=== PATIENT | male | born 1995 | race Caucasian/White ===

== ENCOUNTER 2018-06-14 17:54 | Emergency (ER) | payer OTHER, SELFPAY ==
[2018-06-14 17:55] VITALS: BP 143/87; PULSE 91; RESP 16; TEMP 36.8; O2SAT 100; BMI 25.7
--- NOTE | 2018-06-14 20:23 | CT_ITS ---
STUDY: CT ABDOMEN AND PELVIS WITHOUT CONTRAST REASON FOR EXAM: Male, 23 years old. Kidney stones and back pain RADIATION DOSAGE (If Supplied By Facility): CTDIvol = ( 11.32 ) mGy, DLP = ( 616.74 ) mGycm TECHNIQUE: Transaxial images were obtained from the dome of the diaphragm to the symphysis pubis without oral contrast, and without intravenous contrast. Sagittal and coronal images were reconstructed. Individualized dose optimization techniques were used for this CT. COMPARISON: None. FINDINGS: There is interstitial thickening in both lower lobes. There is mild subsegmental atelectasis at left base.. The visualized portions of the heart are within normal limits. Normal liver. Contracted thick-walled gallbladder without calcified stones possibly physiologic. If concern for gallbladder disease ultrasound recommended. Normal spleen. Normal pancreas. Normal bilateral adrenal glands. Normal right kidney. Normal left kidney. Normal visualized stomach. Normal small intestine. Diffuse fecal retention is seen throughout the colon. The appendix is visualized and appears normal. Normal abdominal aorta. Normal inferior vena cava. Tiny subcentimeter retroperitoneal nodes of uncertain significance Small subcentimeter mesenteric nodes are observed Normal urinary bladder. Multiple enlarged inguinal nodes bilaterally the largest nodes measuring in the 1 to 1.5 cm size range. Normal osseous structures. CT/Abdomen/Pelvis without Cont IMPRESSION: Contracted thick-walled gallbladder without calcified stones possibly physiologic. If concern for gallbladder disease ultrasound recommended No evidence for renal obstruction or ureteral calculus Incidental finding of multiple small mesenteric retroperitoneal and mildly enlarged inguinal nodes of uncertain etiology or clinical significance. Clinical correlation is recommended Electronically Signed: Abdullahi Piedra MD at 21:31 EDT , Service support ,
--- NOTE | 2018-06-14 20:25 | ED.VISSUMM ---
- ER Visit Summary Date of Service: 06/14/18 Chief Complaint: Left flank pain History of Present Illness: The patient is a 23 M presents with 2 months of left-sided flank pain, acutely worse yesterday. Patient has had a dull ache in his left flank for 2 months. Yesterday he lifted a light box at work and had a very sharp severe pain in the left upper flank. Pain is worse with coughing, deep breathing, and sneezing. Patient has tried Tylenol without relief. He was seen by [facility] yesterday and noted to have blood in his urine. He is concerned he has a kidney stone. He has associated cold symptoms that are exacerbating his pain because of coughing and sniffling. He denies fever, abdominal pain, nausea or vomiting, dysuria, hematuria, or any associated problems. He is on Suboxone for maintenance therapy after history of opiate abuse. No history of kidney stones. Physical Examination: Vital signs: afebrile, hemodynamically stable, no hypoxia on room air General: well nourished, well developed, in no distress Skin: warm, dry, no rash, no pallor HEENT: normocephalic and atraumatic; PERRL, EOMI, moist mucous membranes Cardiovascular: regular rate and rhythm without murmurs, no peripheral edema, 2+ pulses all distal extremities Respiratory: No increased work of breathing, lungs are clear to auscultation bilaterally, no rales, rhonchi or wheezing Abdominal: Abdomen is soft, palpation of the abdomen causes referred pain to the left flank, with normoactive bowel sounds, no guarding or rebound, no masses, point tenderness along the upper left lateral/posterior thoracic back with no rash. MSK: Moves all extremities, no deformities, normal strength Neuro: Awake and alert, oriented ?4. No facial droop, sensation and motor function intact and symmetric Test Results: Abnormal Lab Results 06/14/18 06/14/18 06/14/18 20:55 20:55 20:55 WBC 7.5 RBC 4.82 Hgb 14.8 Hct 42.5 MCV 88.2 MCH 30.7 MCHC 34.8 RDW 12.4 RDW Differential 39.8 Plt Count 163 MPV 11.3 Immature Gran % (Auto) 0.300 Neut % (Auto) 60.8 Lymph % (Auto) 29.9 [place] % (Auto) 7.7 Eos % (Auto) 1.2 Baso % (Auto) 0.1 Absolute Neuts (auto) 4.6 Absolute Lymphs (auto) 2.25 Total Counted Not Reportable Sodium 139 Potassium 3.8 Chloride 105 Carbon Dioxide 28.0 Anion Gap 6 BUN 14 Creatinine 0.91 Estim Creat Clear Calc 146.79 Est GFR (MDRD) Af Amer 133 Est GFR (MDRD) Non-Af 110 BUN/Creatinine Ratio 15.4 Glucose 91 Calcium 9.0 Urine Color Yellow Urine Clarity Clear Urine pH 6.0 Ur Specific [place] 1.020 Urine Protein 15 H Urine Glucose (UA) Normal Urine Ketones 5 H Urine Occult Blood Negative Urine Nitrite Negative Urine Bilirubin Negative Urine Urobilinogen Normal Ur Leukocyte Esterase 25 H Urine RBC 0 SEEN Urine WBC 0-5 SEEN Ur Squamous Epith Cells 0-5 SEEN Calcium Oxalate Crystal RARE Urine Bacteria 0 SEEN Urine Mucus 1+ Clinical Impression(s) from Imaging Studies Abdomen/Pelvis CT 06/14/18 20:23 IMPRESSION: Contracted thick-walled gallbladder without calcified stones possibly physiologic. If concern for gallbladder disease ultrasound recommended No evidence for renal obstruction or ureteral calculus Incidental finding of multiple small mesenteric retroperitoneal and mildly enlarged inguinal nodes of uncertain etiology or clinical significance. Clinical correlation is recommended Electronically Signed: Abdullahi Piedra MD at 21:31 EDT , Service support , Chest X-Ray 06/14/18 21:00 IMPRESSION: Mild left lower lobe atelectasis. Electronically Signed: Abdullahi Piedra MD at 21:34 EDT , Service support , Medications Given Discontinued Medications Sodium Chloride () 1,000 mls @ 250 mls/hr IV .Q4H [place] Last Admin: 06/14/18 20:49 Dose: 250 mls/hr Ketorolac Tromethamine (Toradol) 30 mg IV X1 ONE Stop: 06/14/18 20:24 Last Admin: 06/14/18 20:49 Dose: 30 mg Ondansetron HCl (Zofran) 4 mg IV X1 ONE Stop: 06/14/18 20:24 Last Admin: 06/14/18 20:49 Dose: 4 mg Emergency Department Course and Treatment: Patient presents concern for kidney stone, as he has had left-sided flank pain and now was diagnosed with hematuria yesterday after acute worsening of pain at work. Patient was given Toradol for pain. CBC showed no leukocytosis. Chemistry panel showed no electrolyte derangements or renal insufficiency. Hepatic panel normal. Urinalysis showed no infection and no hematuria. CT flank showed no stones and no other abnormalities other than bilateral lower lobe atelectasis. Chest x-ray showed no pneumothorax and also showed left lower lobe atelectasis. Patient had acute severe onset of pain yesterday while lifting at work, and is symptoms are more consistent with a muscle strain or back sprain rather than kidney stone. He is also unable to move secondary to pain and has tenderness to palpation of the musculature in the left upper thoracic region. Thus this is unlikely to be intra-abdominal. Patient's Worker's Comp. paperwork was filled out, as his severe symptom onset was at work. Patient discharged home. Missed his evening dose of Suboxone while in the emergency department, but it was not found readily available in the order set. Patient had no signs of withdrawal while in the emergency department and will take his Suboxone as soon as he gets home. Treatment Plan: [] Disposition: [] Impression: Left thoracic back strain This note was generated with [employer] dictation software. It may contain incorrect words, spelling, and punctuation that were not noted in review of the chart prior to signing ED Disposition - Plan for ED Patient: Disposition: Home or Assisted Living Chief Complaint: Flank Pain Instructions: ED Strain Chest Wall, ED Flank Pain Uncertain Cause, ED Sprain Thoracic Spine Prescriptions: RX: Naproxen [Naprosyn] 500 mg PO BID PRN #20 tablet Referrals: Aly Prescott MD [STAFF PHYSICIAN] - 3-5 Days if not improving Care Physician,No Primary [Primary Care Provider] - Additional Instructions: Your workup showed no signs of kidney infection or kidney stones. Your physical exam and history of the severe worsening pain with movement is most consistent with a muscle strain either in the chest wall or in the upper back. Please use the anti-inflammatory naproxen as needed for pain. Follow-up with your doctor or the doctor on this paperwork for another evaluation if you continue to have symptoms. If you have any worsening of your condition or any new concerning symptoms, please return immediately to the emergency department for another evaluation.
[2018-06-14] MEDS: Ketorolac 30 MG/ML Syringe IV (20:49)
[2018-06-14] MEDS: Ondansetron 4 MG/2 ML Vial IV (20:49)
[2018-06-14] MEDS: 0.9% Normal Saline 1,000 ML 250 ML IV (20:49)
[2018-06-14 20:59] LABS: Bacteria 0 SEEN /hpf (None Seen); Red Blood Cells-Urine 0 SEEN /hpf (0-5)
--- NOTE | 2018-06-14 21:00 | RAD_ITS ---
STUDY: X-RAY CHEST REASON FOR EXAM: Male, 23 years old. Flank pain TECHNIQUE: PA and lateral COMPARISON: None. FINDINGS: Mild subsegmental atelectasis of left lower lobe. There is no demonstrated pleural abnormality. Normal size heart. Normal mediastinum and carmine. Normal visualized pulmonary arteries. Normal visualized aortic arch and descending thoracic aorta. Normal visualized thoracic spine. Normal visualized ribs, clavicles, and shoulders. There is no demonstrated abnormality of the visualized soft tissue structures of the upper abdomen. RAD/Chest PA and Lateral IMPRESSION: Mild left lower lobe atelectasis. Electronically Signed: Abdullahi Piedra MD at 21:34 EDT , Service support ,
[2018-06-14 21:02] LABS: Color, Urine Yellow (Yellow); Glucose, Dipstick Normal (Normal); Ketone-Dipstick 5 mg/dl (Negative); Leukocyte Esterase-Dipstick 25 /ul (Negative); Nitrite-Dipstick Negative (Negative); Occult Blood-Urine Negative /ul (Negative); Protein-Dipstick 15 mg/dl (Negative); Urine Bilirubin Dipstick Negative (Negative); Urine Clarity Clear (Clear); Urine Urobilinogen Normal (Normal)
[2018-06-14 21:03] LABS: Absolute Lymphocyte Count 2.25 X10^3/ul (0.83-4.51); Absolute Neutrophil Count 4.6 X10^3/uL (2.0-7.7); Basophil# 0.01 X10^3/uL; Basophil% 0.1 % (0-1); Eosinophil# 0.09 X10^3/uL; Eosinophils% 1.2 % (0-5); Hematocrit 42.5 % (40-54); Hemoglobin 14.8 g/dl (13.0-16.5); Lymphocyte # 2.25 X10^3/ul (4.0); Lymphocyte % 29.9 % (19-41); Mean Corp Hgb Conc 34.8 g/gl (32-36); Mean Corpuscular Hgb 30.7 pg (27.0-32.0); Mean Corpuscular Volume 88.2 fL (80-94); Mean Platelet Vol. 11.3 fl (6.2-12.0); Monocyte# 0.58 X10^3/uL; Monocyte% 7.7 % (0-10); Neutrophil # 4.57 X10^3/uL (2.7-7.7); Neutrophil % 60.8 % (47-70); POSITIVE COUNT NO; POSITIVE DIFFERENTIAL NO; POSITIVE MORPHOLOGY NO; Platelet Count 163 K/mm3 (150-450); RBC Distribution Width CV 12.4 % (11.6-14.6); RBC Distribution Width SD 39.8 fl (35.1-43.9); Red Blood Count 4.82 M/mm3 (4.6-6.2); White Blood Count 7.5 K/mm3 (4.4-11.0)
[2018-06-14 21:13] LABS: Anion Gap 6 (5-15); BUN 14 mg/dL (7-18); BUN/Creat Ratio 15.4 RATIO (10-20); Chloride 105 mmol/L (98-107); Creatinine, Serum 0.91 mg/dL (0.70-1.30); EST Glomerular Filtration Rate 110 mL/min (>60); Est Glom Filt Rate - Afr Amer 133 mL/min (>60); Estimated Creatinine Clearance 146.79 ml/min; Glucose 91 mg/dL (74-106); Potassium 3.8 mmol/L (3.5-5.1); Sodium Level 139 mmol/L (136-145); Squamous Epithelial Cells - UA 0-5 SEEN /hpf (0-5); White Blood Cells 0-5 SEEN /hpf (0-5)
[2018-06-14 21:14] LABS: Calcium Oxalate Crystals Ur RARE /hpf (<or=2+); Mucous, Urine 1+ /hpf (<or=2+)
--- NOTE | 2018-06-14 22:11 | ED.DEP ---
ED Disposition - Plan for ED Patient: Chief Complaint: Flank Pain Instructions: ED Flank Pain Uncertain Cause, ED Strain Chest Wall, ED Sprain Thoracic Spine Prescriptions: Naproxen [Naprosyn] 500 mg PO BID PRN #20 tablet Referrals: Care Physician,No Primary [Primary Care Provider] - Aly Prescott MD [STAFF PHYSICIAN] - 3-5 Days if not improving Additional Instructions: Your workup showed no signs of kidney infection or kidney stones. Your physical exam and history of the severe worsening pain with movement is most consistent with a muscle strain either in the chest wall or in the upper back. Please use the anti-inflammatory naproxen as needed for pain. Follow-up with your doctor or the doctor on this paperwork for another evaluation if you continue to have symptoms. If you have any worsening of your condition or any new concerning symptoms, please return immediately to the emergency department for another evaluation.
--- NOTE | 2018-06-14 22:26 | ED.RN ---
pt at this time asking for this to be workers comp. pt works at [employer].
--- NOTE | 2018-06-14 22:38 | ED.RN ---
buddy from [employer] called back. states no drug test or paperwork needed since workers comp was already started yesterday.
[2018-06-14 23:01] VITALS: RESP 18
== END 2018-06-14 23:02 | disposition home or self-care (01) ==
PROVIDERS: Emergency Provider Emergency Medicine
DX: S29.012A Strain of muscle and tendon of back wall of thorax, initial encounter (principal); X50.0XXA Overexertion from strenuous movement or load, initial encounter; Y93.89 Activity, other specified; Y92.89 Other specified places as the place of occurrence of the external cause; Y99.0 Civilian activity done for income or pay
CPT/HCPCS: 71046; 74176; 80048; 81001; 85025; 96361; 96374; 96375; 99283; J7030; A4216; J2405

== ENCOUNTER 2018-07-27 19:59 | Emergency (ER) | payer BC, SELFPAY ==
[2018-07-27 20:01] VITALS: BP 130/77; PULSE 80; RESP 24; TEMP 36.3; O2SAT 100; BMI 24.3
--- NOTE | 2018-07-27 20:40 | CT_ITS ---
STUDY: CT THORACIC SPINE WITHOUT CONTRAST REASON FOR EXAM: Male, 23 years old. Trauma RADIATION DOSAGE (If Supplied By Facility): CTDIvol = ( ) mGy, DLP = ( ) mGycm TECHNIQUE: The patient was scanned in a multi detector CT scanner. High resolution imaging was performed. Images were obtained from to . Sagittal and coronal images were reconstructed. Individualized dose optimization techniques were used for this CT. COMPARISON: None. FINDINGS: Normal visualized cervical spine. Normal kyphosis of the thoracic spine. There is no substantial scoliosis. Normal thoracic vertebrae and endplates. Normal disc spaces heights. The soft tissue structures are unremarkable. CT/Spine Thoracic without Contras IMPRESSION: Normal unenhanced CT examination of the thoracic spine There is an incompletely visualized acute compression fracture of L1. Recommend CT or MRI of the lumbar spine for further assessment. Electronically Signed: Abdullahi Piedra MD at 22:00 EST , Service support ,
--- NOTE | 2018-07-27 20:40 | CT_ITS ---
STUDY: CT CHEST WITH CONTRAST REASON FOR EXAM: Male, 23 years old. Trauma RADIATION DOSAGE (If Supplied By Facility): CTDIvol = ( ) mGy, DLP = ( ) mGycm TECHNIQUE: Transaxial imaging was performed following intravenous administration of 100ML ml of Isovue 300 contrast material. Individualized dose optimization techniques were used for this CT. COMPARISON: None. FINDINGS: There is mild atelectasis within the dependent portion of the lungs. There is no focal infiltration or pulmonary nodule.. There is no demonstrated pleural abnormality. Normal heart and pericardium. There is soft tissue density within the anterior superior mediastinum consistent with residual thymus. Normal hilar regions. Normal enhanced pulmonary arteries. Normal aorta arch and descending thoracic aorta. Normal osseous structures. There is no demonstrated abnormality of the visualized upper abdomen. CT/Chest WITH Contrast IMPRESSION: Mild atelectasis within the dependent portion of the lungs No acute abnormalities. Electronically Signed: Abdullahi Piedra MD at 22:16 EST , Service support ,
--- NOTE | 2018-07-27 20:40 | CT_ITS ---
STUDY: CT CERVICAL SPINE WITHOUT CONTRAST REASON FOR EXAM: Male, 23 years old. Trauma RADIATION DOSAGE (If Supplied By Facility): CTDIvol = ( 12.15 ) mGy, DLP = ( 283.21 ) mGycm TECHNIQUE: High resolution transaxial imaging was performed without contrast material. Sagittal and coronal images were reconstructed. Individualized dose optimization techniques were used for this CT. COMPARISON: None FINDINGS: Normal craniovertebral junction. Normal anterior atlantoaxial articulation. Normal odontoid process. Decreased cervical lordosis. Normal vertebral bodies and posterior osseous elements. C2-3: Normal endplates. Normal disc height and morphology. Normal central canal and intervertebral neuroforamina. C3-4: Normal endplates. Normal disc height and morphology. Normal central canal and intervertebral neuroforamina. C4-5: Normal endplates. Normal disc height and morphology. Normal central canal and intervertebral neuroforamina. C5-6: Normal endplates. Normal disc height and morphology. Normal central canal and intervertebral neuroforamina. C6-7: Normal endplates. Normal disc height and morphology. Normal central canal and intervertebral neuroforamina. C7-T1: Normal endplates. Normal disc height and morphology. Normal central canal and intervertebral neuroforamina. Normal visualized soft tissue structures. CT/Spine Cervical without Contras IMPRESSION: Decreased cervical lordosis possibly due to muscle spasm or positioning artifact otherwise normal unenhanced CT of the cervical spine Electronically Signed: Abdullahi Piedra MD at 22:02 EST , Service support ,
--- NOTE | 2018-07-27 20:40 | CT_ITS ---
STUDY: CT BRAIN WITHOUT CONTRAST REASON FOR EXAM: Male, 23 years old. Trauma RADIATION DOSAGE (If Supplied By Facility): CTDIvol = ( 44.99 ) mGy, DLP = ( 846.73 ) mGycm TECHNIQUE: Transaxial CT imaging of the brain was performed without administration of intravenous contrast material. Individualized dose optimization techniques were used for this CT. COMPARISON: None. FINDINGS: Normal soft tissue structures. Normal calvarium. Normal size ventricles and extra-axial spaces for the patient's age. Normal white matter tracts of the cerebral hemispheres. Normal basal ganglia and thalami. Normal brainstem. Normal cerebellum. There is no intracranial hemorrhage. There are no findings of an acute ischemic infarction. Normal visualized paranasal sinuses. CT/Brain/Head without Contrast IMPRESSION: Normal unenhanced CT scan of the brain. Electronically Signed: Abdullahi Piedra MD at 21:58 EST , Service support ,
--- NOTE | 2018-07-27 20:40 | CT_ITS ---
STUDY: CT ABDOMEN AND PELVIS WITH CONTRAST REASON FOR EXAM: Male, 23 years old. Trauma RADIATION DOSAGE (If Supplied By Facility): CTDIvol = ( 19.66 ) mGy, DLP = ( 3160.07 ) mGycm TECHNIQUE: Transaxial images were obtained from the dome of the diaphragm to the symphysis pubis without oral contrast. 100ML ml of Isovue 300 contrast was administered. Sagittal and coronal images were reconstructed. Individualized dose optimization techniques were used for this CT. COMPARISON: None. FINDINGS: There is mild atelectasis within the dependent portion of the lungs.. The visualized portions of the heart are within normal limits. Normal liver. Normal gallbladder and extrahepatic biliary system. Normal spleen. Normal pancreas. Normal bilateral adrenal glands. Normal right kidney. Normal left kidney. Normal visualized stomach. Normal small intestine. Normal colon. The appendix is visualized and appears normal. Normal abdominal aorta. Normal inferior vena cava. Normal retroperitoneum. Normal urinary bladder. Normal abdominal wall. There is an acute wedge compression fracture of L1 with posterior retropulsion of bony fragment narrowing the spinal canal. There is a nondisplaced fracture of the posterior aspect of the 12th left rib CT/Abdomen/Pelvis W IV Cont ONLY IMPRESSION: Acute fractures of L1 and posterior left 12th rib Otherwise unremarkable CT of the abdomen and pelvis Electronically Signed: Abdullahi Piedra MD at 22:21 EST , Service support ,
--- NOTE | 2018-07-27 20:40 | CT_ITS ---
STUDY: CT LUMBAR SPINE WITHOUT CONTRAST REASON FOR EXAM: Male, 23 years old. Trauma RADIATION DOSAGE (If Supplied By Facility): CTDIvol = ( ) mGy, DLP = ( ) mGycm TECHNIQUE: The patient was scanned in a multi detector CT scanner. High resolution transaxial imaging was performed. Images were obtained from to . Sagittal and coronal images were reconstructed. Individualized dose optimization techniques were used for this CT. COMPARISON: None FINDINGS: Normal lumbar lordosis. There is no substantial scoliosis. Normal vertebrae of the lumbar spine. L1-2: There is an acute compression wedge fracture of the central L1 vertebral body with mild posterior retropulsion of bony fragment narrowing the spinal canal. There is approximately 20% loss of vertebral body height. Normal disc height and morphology. Normal bilateral facet joints. Normal central canal and bilateral lateral recesses. Normal bilateral intervertebral neural foramina. L2-3: Normal endplates. Normal disc height and morphology. Normal bilateral facet joints. Normal central canal and bilateral lateral recesses. Normal bilateral intervertebral neural foramina. L3-4: Normal endplates. Normal disc height and minor annular bulge.. Normal bilateral facet joints. Normal central canal and bilateral lateral recesses. Normal bilateral intervertebral neural foramina. L4-5: Normal endplates. Normal disc height and mild annular bulge. Normal bilateral facet joints. Normal central canal and bilateral lateral recesses. Normal bilateral intervertebral neural foramina. L5-S1: Normal endplates. Normal disc height and morphology. Normal bilateral facet joints. Normal central canal and bilateral lateral recesses. Normal bilateral intervertebral neural foramina. Normal visualized paraspinous soft tissue structures. CT/Spine Lumbar without Contrast IMPRESSION: Acute compression fracture of L1 with mild posterior retropulsion of bony fragment mildly narrowing the spinal canal. MRI would be helpful for further assessment if concern for compression of the conus Minor bulging of the annuli at L3-4 and L4-5 without significant spinal stenosis. Electronically Signed: Abdullahi Piedra MD at 22:13 EST , Service support ,
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
[2018-07-27] MEDS: diazePAM 5 MG Tablet PO (20:51)
[2018-07-27 21:00] VITALS: BP 151/88; PULSE 89; RESP 16; O2SAT 100
--- NOTE | 2018-07-27 21:28 | ED.RN ---
2043 DR NANCE AT BEDSIDE FOR ASSESSMENT. PT ROLLED OFF OF BACK BOARD AFTER PHYSICIAN ASSESSMENT. PT PLACED IN GOWN AND POSITIONED FOR COMFORT. PT YELLING IT HURTS, I NEED MORPHINE DONT TOUCH ME UNTIL YOU GIVE ME PAIN MEDS [facility] AT BEDSIDE. WILL CONTINUE TO MONITOR.
--- NOTE | 2018-07-27 21:54 | ED.RN ---
PER DR METZGER ORDERS, PT WAS PLACED BACK ON BACKBOARD IN CT AFTER DR CHECKED THE CT. PT WAS BROUGHT BACK THE ROOM. PT TO REMAIN ON BACK BOARD AND C-COLLAR UNTIL OFFICIAL READ OF CTs
[2018-07-27 22:00] VITALS: BP 128/69; PULSE 81; RESP 18; O2SAT 98
[2018-07-27] MEDS: morphine 8 MG/ML Syringe IV (22:21)
[2018-07-27] MEDS: Ondansetron 4 MG/2 ML Vial IV (22:21)
[2018-07-27 22:25] VITALS: BP 121/69; PULSE 80; RESP 17; O2SAT 100
[2018-07-27 22:54] LABS: Absolute Lymphocyte Count 1.15 X10^3/ul (0.83-4.51); Absolute Neutrophil Count 13.5 X10^3/uL (2.0-7.7); Basophil# 0.02 X10^3/uL; Basophil% 0.1 % (0-1); Eosinophil# 0.02 X10^3/uL; Eosinophils% 0.1 % (0-5); Lymphocyte # 1.15 X10^3/ul (4.0); Lymphocyte % 7.5 % (19-41); Mean Corpuscular Hgb 30.2 pg (27.0-32.0); Mean Corpuscular Volume 86.2 fL (80-94); Mean Platelet Vol. 11.3 fl (6.2-12.0); Monocyte# 0.56 X10^3/uL; Monocyte% 3.7 % (0-10); Neutrophil # 13.45 X10^3/uL (2.7-7.7); Neutrophil % 88.3 % (47-70); Platelet Count 164 K/mm3 (150-450); RBC Distribution Width SD 37.5 fl (35.1-43.9); Red Blood Count 4.64 M/mm3 (4.6-6.2); White Blood Count 15.3 K/mm3 (4.4-11.0)
[2018-07-27 22:55] LABS: POSITIVE COUNT NO; POSITIVE DIFFERENTIAL NO; POSITIVE MORPHOLOGY NO
[2018-07-27 23:04] LABS: Anion Gap 10 (5-15); BUN 9 mg/dL (7-18); BUN/Creat Ratio 8.8 RATIO (10-20); Calcium,Total 8.4 mg/dL (8.5-10.1); Chloride 105 mmol/L (98-107); Creatinine, Serum 1.02 mg/dL (0.70-1.30); EST Glomerular Filtration Rate 96 mL/min (>60); Est Glom Filt Rate - Afr Amer 116 mL/min (>60); Estimated Creatinine Clearance 130.96 ml/min; Glucose 121 mg/dL (74-106); Sodium Level 139 mmol/L (136-145)
[2018-07-27 23:13] LABS: Amphetamine Urine VISTA NEGATIVE (<1000 ng/mL); Barbiturate Urine VISTA NEGATIVE (< 200 ng/mL); Benzodiazepine Urine VISTA NEGATIVE (< 200 ng/mL); Cocaine Urine VISTA NEGATIVE (< 300 ng/mL); Ecstacy Urine VISTA NEGATIVE (< 500 ng/mL); Methadone Urine VISTA NEGATIVE (< 300 ng/mL); PCP Urine VISTA NEGATIVE (< 25 ng/mL); THC Urine VISTA NEGATIVE (< 50 ng/mL); Vista UDS pH Range 7
[2018-07-27 23:22] LABS: Alcohol, Blood (Medical)-Serum < 3.0 mg/dL
--- NOTE | 2018-07-27 23:27 | NURSING ---
[facility] TO [facility] ER TO ER TRANSFER [facility] IS DOING TRANSPORT
[2018-07-27] MEDS: fentaNYL 100 MCG/2 ML Ampul 50 MCG IV (23:28)
[2018-07-27 23:44] VITALS: BP 111/75; PULSE 73; RESP 18; O2SAT 100
--- NOTE | 2018-07-28 00:07 | ED.RN ---
Transport at bedside. Transferred pt to [facility] with assistance. back board and c-collar in place. Pt A&Ox3. Left ED at 0005 with transport staff.
== END 2018-07-28 00:08 | disposition short-term general hospital (02) ==
PROVIDERS: Emergency Provider Emergency Medicine
DX: S32.019A Unspecified fracture of first lumbar vertebra, initial encounter for closed fracture (principal); S22.32XA Fracture of one rib, left side, initial encounter for closed fracture; F11.10 Opioid abuse, uncomplicated; Z79.899 Other long term (current) drug therapy; Z72.0 Tobacco use; V43.52XA Car driver injured in collision with other type car in traffic accident, initial encounter; Y93.I9 Activity, other involving external motion; Y92.410 Unspecified street and highway as the place of occurrence of the external cause; Y99.8 Other external cause status
CPT/HCPCS: 70450; 71260; 72125; 72128; 72131; 74177; 80048; 80307; 80320; 85025; 96374; 96375; 99285; J7030; Q9967; A4216; G0480; J2405

== ENCOUNTER → 2022-05-25 | Outpatient (CLI) | payer OTHER, SELFPAY ==
[2022-05-25 15:16] LABS: Absolute Lymphocyte Count 2.43 X10^3/uL (0.83-4.51); Absolute Neutrophil Count 3.1 X10^3/uL (2.0-7.7); Basophil# 0.03 X10^3/uL; Basophil% 0.5 % (0-1); Eosinophil# 0.15 X10^3/uL; Eosinophils% 2.5 % (0-5); Hematocrit 40.2 % (40-54); Lymphocyte # 2.43 X10^3/ul (0.83-4.51); Lymphocyte % 40.6 % (19-41); Mean Corp Hgb Conc 34.8 g/dL (32-36); Mean Corpuscular Hgb 29.4 pg (27.0-32.0); Mean Corpuscular Volume 84.5 fL (80-94); Mean Platelet Vol. 11.3 fl (6.2-12.0); Monocyte# 0.24 X10^3/uL; NRBC Flagged by Analyzer 0 % (0-5); Neutrophil # 3.12 X10^3/uL (2.7-7.7); Neutrophil % 52.2 % (47-70); Platelet Count 180 K/mm3 (150-450); RBC Distribution Width CV 11.8 % (11.6-14.6); RBC Distribution Width SD 36.1 fl (35.1-43.9); Red Blood Count 4.76 M/mm3 (4.6-6.2)
[2022-05-25 15:36] LABS: Hemoglobin A1c 5.3 % (3.8-5.6)
[2022-05-25 15:50] LABS: ALB/GLOB Ratio 1.2 RATIO (0.9-2.4); AST(SGOT) 24 U/L (15-37); Alanine Aminotransfer ALT/SGPT 49 U/L (16-61); Albumin, Serum 3.9 g/dL (3.2-5.0); Alkaline Phosphatase 81 U/L (45-117); Anion Gap 8 (5-15); BUN 21 mg/dL (7-18); BUN/Creat Ratio 22.9 RATIO (10-20); Calcium,Total 9.1 mg/dL (8.5-10.1); Chloride 107 mmol/L (98-107); Creatinine, Serum 0.92 mg/dL (0.70-1.30); EST Glomerular Filtration Rate 105 mL/min (>60); Est Glom Filt Rate - Afr Amer 127 mL/min (>60); Globulin 3.2 g/dL (2.2-4.2); Glucose 109 mg/dL (74-106); Potassium 3.8 mmol/L (3.5-5.1); Protein, Total 7.1 g/dL (6.4-8.2); Sodium Level 141 mmol/L (136-145); Thyroid Stim Hormone (TSH) 1.26 uIU/mL (0.358-3.74)
== END | disposition home or self-care (01) ==
LOC: MFPLAB 14:06
PROVIDERS: PCP Family Medicine; Referring Provider Family Medicine; Visit Provider Family Medicine
DX: R42 Dizziness and giddiness (principal)
CPT/HCPCS: 36415; 80053; 83036; 84443; 85025

== ENCOUNTER 2025-03-13 21:16 | Inpatient (IN) | payer SELFPAY ==
[2025-03-13 21:17] VITALS: BP 126/92; PULSE 104; RESP 16; TEMP 37; O2SAT 99; BMI 22.8
[2025-03-13 21:52] LABS: Hematocrit 47.8 % (40-54); Hemoglobin 16.5 g/dL (13.0-16.5); Immature Granulocytes Count 0.020 X10^3/uL (0.0-0.0); Mean Corp Hgb Conc 34.5 g/dL (32-36); Mean Corpuscular Volume 94.3 fL (80-94); Mean Platelet Vol. 10.1 fl (6.2-12.0); NRBC Flagged by Analyzer 0 % (0-5); Platelet Count 175 K/mm3 (150-450); RBC Distribution Width CV 12.2 % (11.6-14.6); RBC Distribution Width SD 42.3 fl (35.1-43.9); Red Blood Count 5.07 M/mm3 (4.6-6.2); White Blood Count 5.3 K/mm3 (4.4-11.0)
[2025-03-13 22:18] LABS: Barbiturate Urine NEGATIVE (< 200 ng/mL); Benzodiazepine Urine NEGATIVE (< 200 ng/mL); PCP Urine NEGATIVE (< 25 ng/mL); THC Urine PRESUMPTIVE POSITIVE (< 50 ng/mL)
[2025-03-13 22:30] LABS: Alcohol, Blood (Medical)-Serum 271.0 mg/dL (<=10.0)
[2025-03-13 22:32] LABS: AST(SGOT) 79 U/L (<=37); Alanine Aminotransfer ALT/SGPT 48 U/L (<=46); Albumin, Serum 4.8 g/dL (3.5-5.0); Alkaline Phosphatase 93 U/L (40-129); Anion Gap 12 (5-15); BUN 10 mg/dL (4-19); BUN/Creat Ratio 10.8 RATIO (10-20); Calcium,Total 9.4 mg/dL (7.6-11.0); Carbon Dioxide 26.8 mmol/L (21.0-32.0); Chloride 101 mmol/L (98-108); Estimated Creatinine Clearance 137.37 ml/min (50-250); Globulin 3.0 g/dL (2.2-4.2); Glucose 116 mg/dL (70-99); Potassium 4.3 mmol/L (3.3-5.1)
[2025-03-13] MEDS: 0.9% Normal Saline (1000mL) 1,000 ML 999 ML IV (22:41)
--- NOTE | 2025-03-13 22:47 | PCM.HP.STD ---
HPI - General General Date of Admission: 03/13/25 Date of Service: 03/13/25 Chief Complaint: Alcohol detox HPI Narrative VINAY ARMENDARIZ, is a 30 M who presented to [facility] ED on 03/13/2025 with desire for alcohol detox. Saw patient at bedside in the ED, significant other present. Patient was mildly anxious appearing but otherwise sitting back comfortably in bed and in no acute distress. Patient has history of opiate abuse but reports being clean for over 8 years and is on Suboxone. No other significant medical history, takes no other medications at baseline. He reports minimal alcohol use until about 6 months ago. He has now been drinking heavily for the past 3 to 4 months. Has been drinking 1/5 of liquor daily. No prior history of alcohol detox. Alcohol level 271 on admit. Reports feeling anxious but denies any tremors or other withdrawal symptoms currently. Will be admitted for further management. [facility] Medical History Intertrigo Generalized headaches Drug abuse Bone fracture Hidradenitis Home Medications ?Medication ?Instructions ?Recorded ?Last Taken ?Type buprenorphine 8 mg-naloxone 2 mg 1 tab sublingual BID drug detox 03/14/25 03/13/25 08:00 History sublingual tablet Allergy/AdvReac Type Severity Reaction Status Date / Time No Known Allergies Allergy Verified 03/13/25 21:17 Family History Other No pertinent family history Surgical History History of excision of lesion Social History Smoking Status: Current every day smoker tobacco type: e-cigarettes alcohol intake: former substance use type: former substance user ROS Constitutional Constitutional: Denies chills, fatigue, fever(s) or weakness Eyes Eyes: Denies change in vision Cardiovascular Cardiovascular: Denies chest pain Respiratory/Chest Respiratory/Chest: Denies shortness of breath at rest Gastrointestinal Gastrointestinal: Reports nausea; Denies abdominal pain or vomiting Psychiatric Psychiatric: Reports anxiety Vital Signs Vital Signs Vital Signs: 03/13/25 21:17 Temperature 98.6 F Temperature Source Oral Pulse Rate 104 H Respiratory Rate 16 Blood Pressure 126/92 H Blood Pressure Mean 103 Pulse Ox 99 Oxygen Delivery Method Room Air Weight Weight: 80.921 kg Body Mass Index (BMI) 22.8 Physical Exam Const alert, oriented x3, no apparent distress and average body habitus Constitutional Narrative: Pleasant younger male, mildly anxious and flushed appearing, otherwise sitting back comfortably in bed, conversing normally, in no acute distress. General Appearance: cooperative and comfortable HEENT normocephalic, head/scalp atraumatic, hearing grossly normal bilaterally, nasal mucous membranes and turbinates normal and moist oral mucous membranes Eyes PERRL, EOMs intact bilaterally and conjunctivae normal Neck full ROM Chest inspection of chest normal Resp normal respiratory effort, normal air movement, no use of accessory muscles and clear to auscultation bilaterally Cardio regular rate, regular rhythm, no murmurs and peripheral pulses 2+ throughout GI normal to inspection, nondistended, normoactive bowel sounds, soft to palpation, non-tender and non-distended Back/Spine normal ROM Extremity normal to inspection, full ROM and no pedal edema Skin no rashes or lesions noted Psych mental status grossly normal Mood & Affect: anxious Results Lab / Micro Data 03/13/25 21:42 03/13/25 21:42 Labs: Laboratory Results - last 24 hr 03/13/25 21:42: WBC 5.3, RBC 5.07, Hgb 16.5, Hct 47.8, MCV 94.3 H, MCH 32.5 H, MCHC 34.5, RDW Std Deviation 42.3, RDW Coeff of Viry 12.2, Plt Count 175, MPV 10.1, Immature Gran % (Auto) 0.400, Neut % (Auto) 69.3, Lymph % (Auto) 23.4, [place] % (Auto) 5.6, Eos % (Auto) 0.9, Baso % (Auto) 0.4, Absolute Neuts (auto) 3.7, Absolute Lymphs (auto) 1.25, Nucleated RBC % 0, Sodium 140, Potassium 4.3, Chloride 101, Carbon Dioxide 26.8, Anion Gap 12, BUN 10, Creatinine 0.90, Estim Creat Clear Calc 137.37, Est GFR (MDRD) Non-Af 117, BUN/Creatinine Ratio 10.8, Glucose 116 H, Calcium 9.4, Total Bilirubin 0.35, AST 79 H, ALT 48 H, Alkaline Phosphatase 93, Total Protein 7.8, Albumin 4.8, Globulin 3.0, Albumin/Globulin Ratio 1.6, Urine Opiates Screen NEGATIVE, U Buprenorphine Qual PRESUMPTIVE POSITIVE, Ur Oxycodone Screen NEGATIVE, Urine Methadone Screen NEGATIVE, Urine Fentanyl Screen NEGATIVE, Ur Barbiturates Screen NEGATIVE, Ur Phencyclidine Scrn NEGATIVE, Ur Amphetamines Screen NEGATIVE, U Benzodiazepines Scrn NEGATIVE, Urine Cocaine Screen NEGATIVE, U Cannabinoids Screen PRESUMPTIVE POSITIVE, Ethyl Alcohol 271.0 H Assessment & Plan Assessment/Plan (1) Alcohol abuse: (2) Desire for detoxification: PLAN: Plan Patient is a 30-year-old male who presented to [facility] ED on 03/13/2025 for alcohol detox. 1. Alcohol abuse with acute intoxication and desire for detox ? Admit under inpatient status to [facility]. Case management consulted. Alcohol level 271 on admit. Reports drinking 1/5 of liquor daily. No prior history of detox. Given patient is high risk for withdrawal, will treat with phenobarbital taper and other as needed medications per alcohol withdrawal order set. 2. Tobacco abuse ? Reports heavy vape use on a daily basis. Nicotine patch ordered per patient request. Discussed cessation on discharge. 3. History of opiate abuse ? Has been clean for over 8 years per his report. Continue home Suboxone. 4. History of hidradenitis suppurativa ? Previously followed with Dr. Riggins with [facility] here for this. Patient denies any recent issues with this. No inpatient needs, outpatient follow-up as needed. DVT prophylaxis: Low risk, ambulate CODE STATUS: Full code, verified Expected disposition: TBD Total clinical time spent by myself addressing the patient's medical issues, reviewing all the data, and collaborating with patient's care team: 55 minutes. Charges/Coding Visit Charges Inpatient E&M: 71859 Init Hosp L2
--- NOTE | 2025-03-13 22:50 | EX.ED.DYSGE1 ---
HPI History of Present Illness Chief Complaint: ETOH Intox Informant: patient and spouse/S.O. Narrative Narrative: Patient is a 30-year-old male with remote history of opioid/heroin abuse who reports he is 8 years sober but on Suboxone. He states over the last 4 months or so he has drank 1/5 of liquor daily. He reports that he would typically have to wake in the middle the night to help with symptoms and have a drink first thing when he wakes up. He states that he is not ready to seek help and is seeking placement in the hospital for detox. He states other than the Suboxone he takes no daily medication and he denies any illicit drug use. [facility] Medical History Intertrigo Generalized headaches Drug abuse Bone fracture Hidradenitis Home Medications ?Medication ?Instructions ?Recorded ?Last Taken ?Type buprenorphine 8 mg-naloxone 2 mg 1 tab sublingual BID drug detox 03/14/25 03/13/25 08:00 History sublingual tablet Allergy/AdvReac Type Severity Reaction Status Date / Time No Known Allergies Allergy Verified 03/13/25 21:17 Family History Other No pertinent family history Surgical History History of excision of lesion Social History Smoking Status: Current every day smoker tobacco type: e-cigarettes alcohol intake: former substance use type: former substance user ROS [facility] ED Constitutional Constitutional ED: Denies chills or fever(s) Eyes Eyes: Denies change in vision ENT ENT ED: Denies sore throat Cardiovascular Cardiovascular: Denies chest pain Respiratory/Chest Respiratory/Chest: Denies cough or dyspnea Gastrointestinal Gastrointestinal: Denies abdominal pain, diarrhea, nausea or vomiting Musculoskeletal Musculoskeletal: Denies myalgias Integumentary Denies rash Neurologic Neurologic: Denies headache(s) or paresthesias Hematologic/Lymphatic Hematologic/Lymphatic: Denies easy bleeding or easy bruising EXAM Physical Exam Const Vital Signs: 03/13/25 21:17 Temperature 98.6 F Temperature Source Oral Pulse Rate 104 H Respiratory Rate 16 Blood Pressure 126/92 H Blood Pressure Mean 103 Pulse Ox 99 Oxygen Delivery Method Room Air Positive well nourished and well developed General Appearance ED: well developed; Negative for pallor HEENT HEENT Narrative: Normocephalic atraumatic Eyes EOMs intact bilaterally Eyes Narrative: Pupils are dilated and slightly sluggish to respond to light consistent with alcohol use. There is also mild scleral injection. General Eye ED: Negative for scleral icterus Neck supple Resp normal respiratory effort and clear to auscultation bilaterally Cardio regular rate and regular rhythm GI normal to inspection, nondistended, normoactive bowel sounds, non-tender, non-distended and no masses GI Narrative: No organomegaly noted Auscultation: normoactive bowel sounds Palpation: soft Extremity normal to inspection Neuro oriented x3, CN's II-XII intact bilaterally and no sensory deficits noted Sensorium / Orientation: alert Motor Exam: strength 5/5 throughout Psych mental status grossly normal Skin no rashes or lesions noted and no wounds General Skin Exam: Negative for jaundice or pallor MDM MDM MDM Narrative Medical decision making narrative: Patient arrived to the ER awake and alert without obvious signs of alcohol withdrawal. He reports he has drank 1/5 of liquor daily for approximately 4 months. Based on this reported amount of alcohol and his symptoms that he was states he obtains when he tries to sleep there is high likelihood for him to progress to severe withdrawal/delirium tremens. Therefore I do feel the safest option will be admission to the hospital for continued evaluation and treatment to prevent this occurrence. Basic labs were obtained which show no clinically significant findings other than his elevated alcohol level which correlates with his use. As the patient is not exhibiting withdrawal symptoms at this time I did not provide any type of Ativan or phenobarbital. However as the patient is at high risk for progression to DTs from withdrawal symptoms the hospitalist was contacted and agrees to accept the patient for continued treatment of his alcohol abuse. History & Record Review Discussion w/independent historian: Patient and Significant other Lab Data Attestation: I reviewed the patient's lab results. Labs: Laboratory Results - last 24 hr 03/13/25 21:42 WBC 5.3 RBC 5.07 Hgb 16.5 Hct 47.8 MCV 94.3 H MCH 32.5 H MCHC 34.5 RDW Std Deviation 42.3 RDW Coeff of Viry 12.2 Plt Count 175 MPV 10.1 Immature Gran % (Auto) 0.400 Neut % (Auto) 69.3 Lymph % (Auto) 23.4 [place] % (Auto) 5.6 Eos % (Auto) 0.9 Baso % (Auto) 0.4 Absolute Neuts (auto) 3.7 Absolute Lymphs (auto) 1.25 Nucleated RBC % 0 Sodium 140 Potassium 4.3 Chloride 101 Carbon Dioxide 26.8 Anion Gap 12 BUN 10 Creatinine 0.90 Estim Creat Clear Calc 137.37 Est GFR (MDRD) Non-Af 117 BUN/Creatinine Ratio 10.8 Glucose 116 H Calcium 9.4 Total Bilirubin 0.35 AST 79 H ALT 48 H Alkaline Phosphatase 93 Total Protein 7.8 Albumin 4.8 Globulin 3.0 Albumin/Globulin Ratio 1.6 Urine Opiates Screen NEGATIVE U Buprenorphine Qual PRESUMPTIVE POSITIVE Ur Oxycodone Screen NEGATIVE Urine Methadone Screen NEGATIVE Urine Fentanyl Screen NEGATIVE Ur Barbiturates Screen NEGATIVE Ur Phencyclidine Scrn NEGATIVE Ur Amphetamines Screen NEGATIVE U Benzodiazepines Scrn NEGATIVE Urine Cocaine Screen NEGATIVE U Cannabinoids Screen PRESUMPTIVE POSITIVE Ethyl Alcohol 271.0 H Management Discussion w/another healthcare provider: Hospitalist Discharge Plan Dx/Rx/DC Orders Clinical Impression: Alcohol abuse, Desire for detoxification Disposition Disposition: Acute Care Hospital [facility] Discharge Date/Time: 03/13/25 23:55
[2025-03-13 23:17] VITALS: BP 128/70; PULSE 78; RESP 18; TEMP 36.6; O2SAT 98
[2025-03-13 23:33] VITALS: BP 128/70; PULSE 78; RESP 18; TEMP 36.6; O2SAT 98
[2025-03-14 00:05] VITALS: BMI 22.6
[2025-03-14 00:12] VITALS: BP 136/86; PULSE 80; RESP 16; TEMP 36.8; O2SAT 98
[2025-03-14] MEDS: hydrOXYzine PAM 25 MG Capsule 50 MG PO ×4 (00:38→21:04)
[2025-03-14 04:40] VITALS: BP 109/54; PULSE 65; RESP 16; TEMP 36.6; O2SAT 98
[2025-03-14] MEDS: BUPRENORPHINE HCL/NALOXONE HCL 1 EACH TAB.SUBL SL ×2 (04:51→17:03)
[2025-03-14 06:17] LABS: Hematocrit 39.8 % (40-54); Hemoglobin 13.7 g/dL (13.0-16.5); Mean Corp Hgb Conc 34.4 g/dL (32-36); Mean Corpuscular Volume 94.3 fL (80-94); Mean Platelet Vol. 10.0 fl (6.2-12.0); Platelet Count 139 K/mm3 (150-450); RBC Distribution Width CV 12.1 % (11.6-14.6); RBC Distribution Width SD 42.0 fl (35.1-43.9); Red Blood Count 4.22 M/mm3 (4.6-6.2); White Blood Count 4.2 K/mm3 (4.4-11.0)
[2025-03-14 06:52] LABS: Anion Gap 15 (5-15); BUN 10 mg/dL (4-19); BUN/Creat Ratio 11.9 RATIO (10-20); Calcium,Total 9.0 mg/dL (7.6-11.0); Carbon Dioxide 21.1 mmol/L (21.0-32.0); Chloride 103 mmol/L (98-108); Estimated Creatinine Clearance 150.51 ml/min (50-250); Glucose 96 mg/dL (70-99); Potassium 3.3 mmol/L (3.3-5.1)
--- NOTE | 2025-03-14 07:05 | PN.HOSP_ITS ---
Reason for Visit Reason for Visit: Diagnoses Alcohol abuse, uncomplicated (03/13/25) Subjective Subjective Patient with no acute events overnight per self and per nursing report. He does note still mild tremulousness but significantly improved from day prior. He is requesting additional nicotine breakthrough supplementation as he notes he vapes excessively. Patient also noting mild constipation and requesting MiraLAX. Patient denies fevers, chills, nausea, emesis, abdominal pain, chest pain or dyspnea. Objective Data Objective Data Vital Signs: Vital Signs Temp Pulse Resp BP Pulse Ox O2 Del Method 98 F 65 16 109/54 L 98 Room Air 03/14/25 04:40 03/14/25 04:40 03/14/25 04:40 03/14/25 04:40 03/14/25 04:40 03/14/25 04:40 Oxygen Delivery Method Room Air Weight: 175 lb 14.862 oz Body Mass Index (BMI) 22.6 Intake & Output: Intake and Output for Last 24 Hours 03/12/25 03/13/25 03/14/25 23:59 23:59 23:59 Intake Total 1000 / 1000 Balance 1000 / 1000 Lab / Micro Data 03/14/25 05:18 03/14/25 05:18 Labs: Laboratory Results - last 24 hr 03/13/25 21:42: WBC 5.3, RBC 5.07, Hgb 16.5, Hct 47.8, MCV 94.3 H, MCH 32.5 H, MCHC 34.5, RDW Std Deviation 42.3, RDW Coeff of Viry 12.2, Plt Count 175, MPV 10.1, Immature Gran % (Auto) 0.400, Neut % (Auto) 69.3, Lymph % (Auto) 23.4, [place] % (Auto) 5.6, Eos % (Auto) 0.9, Baso % (Auto) 0.4, Absolute Neuts (auto) 3.7, Absolute Lymphs (auto) 1.25, Nucleated RBC % 0, Sodium 140, Potassium 4.3, Chloride 101, Carbon Dioxide 26.8, Anion Gap 12, BUN 10, Creatinine 0.90, Estim Creat Clear Calc 137.37, Est GFR (MDRD) Non-Af 117, BUN/Creatinine Ratio 10.8, G lucose 116 H, Calcium 9.4, Total Bilirubin 0.35, AST 79 H, ALT 48 H, Alkaline Phosphatase 93, Total Protein 7.8, Albumin 4.8, Globulin 3.0, Albumin/Globulin Ratio 1.6, Urine Opiates Screen NEGATIVE, U Buprenorphine Qual PRESUMPTIVE POSITIVE, Ur Oxycodone Screen NEGATIVE, Urine Methadone Screen NEGATIVE, Urine Fentanyl Screen NEGATIVE, Ur Barbiturates Screen NEGATIVE, Ur Phencyclidine Scrn NEGATIVE, Ur Amphetamines Screen NEGATIVE, U Benzodiazepines Scrn NEGATIVE, Urine Cocaine Screen NEGATIVE, U Cannabinoids Screen PRESUMPTIVE POSITIVE, Ethyl Alcohol 271.0 H 03/14/25 05:18: WBC 4.2 L, RBC 4.22 L, Hgb 13.7, Hct 39.8 L, MCV 94.3 H, MCH 32.5 H, MCHC 34.4, RDW Std Deviation 42.0, RDW Coeff of Viry 12.1, Plt Count 139 L, MPV 10.0, Sodium 138, Potassium 3.3, Chloride 103, Carbon Dioxide 21.1, Anion Gap 15, BUN 10, Creatinine 0.81, Estim Creat Clear Calc 150.51, Est GFR (MDRD) Non-Af 122, BUN/Creatinine Ratio 11.9, Glucose 96, Calcium 9.0 Physical Exam Narrative Physical Examination: General: Awake, alert, oriented x 3 and cooperative, laying in the MedSurg bed, notes mild tremulousness but markedly improved since initial ED presentation. Skin: Normal color, normal turgor, no icterus, no cyanosis except occasional stage ecchymoses, abrasion, tattoos. HEENT: AT/NC, EOMI, PERRLA, MMM. Lungs: CTA bilaterally, moderate effort, mild decrease BL bases, no rales, ronchi or wheezing. Heart: Regular rate and rhythm; no gallop, rub audible. Abdomen: Soft, NTTP, ND, mildly hyperactive BS. Extremities: No cyanosis, clubbing, or edema. Neurological: Patient awake, alert, oriented as noted, cognitive function intact; pupils equally reactive to light and accommodation, cranial nerves grossly normal, moving all 4 extremities, no focal deficits, strength mildly global decreased, very mildly tremulous in the hands but improved, withdrawal symptoms notably abated since initial presentation. Psychiatric: Affect appears mildly fatigued otherwise normal, no acute evidence of depressive or anxiety feelings. Assessment & Plan Assessment/Plan (1) Alcohol abuse: (2) Desire for detoxification: PLAN: Plan The patient is a 30 y/o M w/ PMHx: EtOH abuse, Former Opiate Abuse on chronic suboxone therapy, Tobacco use (heavy vaping) who presents to the [facility] ED on 03/13/25 with request for alcohol detoxification. #1. Acute EtOH intoxication with abuse with impending withdrawal with mild transaminitis with likely chronic alcoholic hepatitis: Admitted to medical surgical floor, routine labs obtained in the ED, given interest in sobriety patient initiated and continued on tapering course of phenobarbital, as needed gabapentin, Catapres, Bentyl, Vistaril, IV fluids, IV antiemetics, Tylenol as needed for pain. Case management consulted for assistance for transition to next level of rehabilitation care. Mag, phos levels obtained and noted to be normal. Maintain on CIWA protocol concurrently. Hepatitis panel pending obtained on admission. #2. Former opiate abuse: Patient's clean x 8 years, encouraged ongoing aggressive outpatient support program and continued Suboxone therapy. #3. Tobacco Abuse: Encouraged cessation, inpatient consultation per RT, NR if desired. #4. Constipation, acute: Will initiate MiraLAX regimen and hold for loose stools. Encourage high-fiber intake. #5. DVT prophylaxis: Low risk for type presentation, encourage ambulation. Charges/Coding Visit Charges Inpatient E&M: 91334 Subs Hosp L2
[2025-03-14 07:50] VITALS: O2SAT 95
[2025-03-14 08:00] LABS: Magnesium 1.7 mg/dL (1.5-2.2)
[2025-03-14 09:41] VITALS: BP 139/64; PULSE 92; RESP 18; TEMP 37; O2SAT 96
[2025-03-14] MEDS: Thiamine Hydrochloride 100 MG Tablet PO (09:45)
--- NOTE | 2025-03-14 11:02 | ADDICTION ---
Met with patient to complete RAMP assessments. Patient reports that he did not drink until about 6 months ago. Unfortunately he began drinking heavily and daily shortly after he started. He has an addiction hx and has been on Suboxone for around 8 years. We discussed addiction and although alcohol was not his drug of choice, all substances can trigger the same addictive response.
[2025-03-14 12:05] VITALS: BP 120/69; PULSE 88; RESP 18; TEMP 37.2; O2SAT 98
[2025-03-14] MEDS: Polyethylene Glycol 3350 17 GM PACKET PO (12:06)
--- NOTE | 2025-03-14 12:58 | CASEMGMT ---
Social Work- KAT met with pt to complete SDOH. SW introduced self and role; pt agreeable to meet. Pt reports that his household recently decreased to just his income. Pt household expenses are around $3k/month. Pt does not anticipate SO returning to work in the foreseeable future. Pt has a 12 yo son. 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 Pt reports that he has been receiving mortgage assistance from [employer], as he has been behind on mortgage. Pt is also behind on utilities, although reports that utilities have not yet been turned off. Pt reports that his fridge is often empty. Pt reports that he does have a PCP at [facility], but he hasn't been to PCP for awhile. SW provided [facility] PCP list, [facility] clinic information, [facility] patient assistance form, prescription assistance programs, community action, transportation, people to people, [facility] youth programs, and [facility] card. Pt denies any additional needs at this time. ALEJANDRINA Dee
--- NOTE | 2025-03-14 13:20 | CHAPLAIN ---
Type of Pastoral Visit _x__ Initial Visit ___ Follow-up Visit ___ On-call Visit ___ General Patient Visit ___ Spiritual Assessment ___ Family Conference ___ Bereavement ___ Rapid Response ___ Code Blue ___ Other (describe below) Pastoral Care Referral From _x__ Patient ___ Family ___ Nurse ___ Physician ___ Cloth Stock Sorter ___ Web Applications Programmer ___ Other (describe below) Sacrament/Intervention _x__ Active listening ___ Anointing ___ Gnosticism ___ Bereavement ___ Communion ___ Ginette exploration ___ _x__ Life review ___ Prayer ___ Reconciliation ___ Sacrament of Sick _x__ Supportive presence ___ Wedding ___ Other (describe below) Pastoral Comments patient is awake and alert while admitting the he has some discomfort and wishes that he could sleep; pt states that he does not need anything but does mention that the TV is not working right; offered to seek maintenance for support but pt declines; pt was watching a sports channel; conversation shifted to sports and college football which brought interest to the patient; pt opens up more about his personal life and struggles with relationships, finances, and parenting a 12 old year son; pt is affirmed in making decisions to improve his life and take responsibilities; pt acknowledges the appreciation for support and welcomes a visit later
--- NOTE | 2025-03-14 13:38 | NURSING ---
Called returned to sister Darcy. Update on status provided.
--- NOTE | 2025-03-14 15:01 | NURSING ---
Pt requested Subutex PRN BID. Dr. Goddard declined. OK to administer scheduled dose early at 1650 to maintain approx. 12hr b/t doses.
[2025-03-14 20:45] VITALS: BP 119/53; PULSE 69; RESP 16; TEMP 36.6; O2SAT 99
[2025-03-15] MEDS: hydrOXYzine PAM 25 MG Capsule 50 MG PO ×3 (01:02→13:05)
[2025-03-15] MEDS: BUPRENORPHINE HCL/NALOXONE HCL 1 EACH TAB.SUBL SL (05:09)
--- NOTE | 2025-03-15 06:59 | PN.HOSP_ITS ---
Reason for Visit Reason for Visit: Diagnoses Alcohol abuse, uncomplicated (03/13/25) Subjective Subjective Patient with no acute events overnight per self and per nursing report. He notes yesterday with bowel regimen he did have a bowel movement and feels better. He did state he slept less well but this was because of noise in the hospital. Encouraged him discussed with staff and requests earplugs if necessary. He does note that withdrawal symptoms currently completely abated. Patient denies fevers, chills, nausea, emesis, abdominal pain, chest pain or dyspnea. Objective Data Objective Data Vital Signs: Vital Signs Temp Pulse Resp BP Pulse Ox O2 Del Method 97.8 F 69 16 119/53 L 99 Room Air 03/14/25 20:45 03/14/25 20:45 03/14/25 20:45 03/14/25 20:45 03/14/25 20:45 03/14/25 20:45 Oxygen Delivery Method Room Air Weight: 175 lb 14.862 oz Body Mass Index (BMI) 22.6 Intake & Output: Intake and Output for Last 24 Hours 03/13/25 03/14/25 03/15/25 23:59 23:59 23:59 Intake Total 1000 / 1000 1360 / 1360 Balance 1000 / 1000 1360 / 1360 Lab / Micro Data 03/14/25 05:18 03/14/25 05:18 Labs: Laboratory Results - last 24 hr 03/14/25 05:18: Phosphorus 3.9, Magnesium 1.7 Physical Exam Narrative Physical Examination: General: Awake, alert, oriented x 3 and cooperative, laying in the MedSurg bed, notes feeling well aside from sleeping poorly from sound in the hospital, denies any withdrawal symptoms. Skin: Normal color, normal turgor, no icterus, no cyanosis except occasional stage ecchymoses, abrasion, tattoos. HEENT: AT/NC, EOMI, PERRLA, MMM. Lungs: CTA bilaterally, moderate effort, mild decrease BL bases, no rales, ronchi or wheezing. Heart: Regular rate and rhythm; no gallop, rub audible. Abdomen: Soft, NTTP, ND, mildly hyperactive BS. Extremities: No cyanosis, clubbing, or edema. Neurological: Patient awake, alert, oriented as noted, cognitive function intact; pupils equally reactive to light and accommodation, cranial nerves grossly normal, moving all 4 extremities, no focal deficits, strength improved, preserved, notes abated completely withdrawal symptoms. Psychiatric: Affect appears fatigued but noted because of someone loud in another room, normal otherwise, no acute evidence of depressive or anxiety feelings. Assessment & Plan Assessment/Plan (1) Alcohol abuse: (2) Desire for detoxification: PLAN: Plan The patient is a 30 y/o M w/ PMHx: EtOH abuse, Former Opiate Abuse on chronic suboxone therapy, Tobacco use (heavy vaping) who presents to the [facility] ED on 03/13/25 with request for alcohol detoxification. #1. Acute EtOH intoxication with abuse with impending withdrawal with mild transaminitis with likely chronic alcoholic hepatitis: Admitted to medical surgical floor, routine labs obtained in the ED, given interest in sobriety patient initiated and continued on tapering course of phenobarbital, as needed gabapentin, Catapres, Bentyl, Vistaril, IV fluids, IV antiemetics, Tylenol as needed for pain. Case management consulted for assistance for transition to next level of rehabilitation care. Mag, phos levels normal. Maintain on CIWA protocol concurrently. Hepatitis panel noted to be negative. #2. Former opiate abuse: Patient's clean x 8 years, encouraged ongoing aggressive outpatient support program and continued Suboxone therapy. #3. Tobacco Abuse: Encouraged cessation, inpatient consultation per RT, continue with nicotine patch and given significant vaping history 03/14/2025 initiated also on nicotine gum for breakthrough nicotine craving. #4. Constipation, acute: 03/14/2025 with constipation initiated MiraLAX, successful, will have him continue if needed, will hold for loose stools. Continue to encourage high-fiber intake. #5. DVT prophylaxis: Low risk for type presentation, encourage ambulation. Charges/Coding Visit Charges Inpatient E&M: 94801 Subs Hosp L2
[2025-03-15 07:07] LABS: HEPATITIS B SURFACE AG Negative (Negative); Hep C Antibodies Non Reactive (Non Reactive)
[2025-03-15 08:34] VITALS: BP 112/72; PULSE 62; RESP 16; TEMP 36.4; O2SAT 98
[2025-03-15] MEDS: Thiamine Hydrochloride 100 MG Tablet PO (08:38)
--- NOTE | 2025-03-15 18:00 | PCM.DC.SUM ---
Providers Date of Admission: 03/13/25 Date of Discharge: 03/15/25 Primary Care Physician: Arielle Primary Care Phys Reason For Visit: ALCOHOL DETOX Diagnosis Discharge Diagnosis (1) Alcohol abuse: Status: Acute Code(s): F10.10 - Alcohol abuse, uncomplicated (2) Desire for detoxification: Status: Acute Plan: DISCHARGE DIAGNOSES: #1. Acute EtOH intoxication with abuse with impending withdrawal with mild transaminitis with likely chronic alcoholic hepatitis (left 03/15/25 AMA) #2. Former opiate abuse on chronic Suboxone therapy. #3. Tobacco Abuse #4. Constipation, acute Plan The patient is a 30 y/o M w/ PMHx: EtOH abuse, Former Opiate Abuse on chronic suboxone therapy, Tobacco use (heavy vaping) who presented to the [facility] ED on 03/13/25 with request for alcohol detoxification. Admitted to medical surgical floor, routine labs obtained in the ED, given interest in sobriety patient initiated and continued on tapering course of phenobarbital, as needed gabapentin, Catapres, Bentyl, Vistaril, IV fluids, IV antiemetics, Tylenol as needed for pain. Case management consulted for assistance for transition to next level of rehabilitation care. Mag, phos levels normal. Maintain on CIWA protocol concurrently. Hepatitis panel noted to be negative. 03/15/25 despite recommendations patient left AMA. Medications at Discharge Home Medications buprenorphine 8 mg-naloxone 2 mg sublingual tablet 1 tab sublingual BID drug detox 03/14/25 Weight / BMI Weight Weight: 175 lb 14.862 oz Body Mass Index (BMI) 22.6 ABG / Lab / Microbiology Data 03/14/25 05:18 03/14/25 05:18 Laboratory: Laboratory Results - last 24 hr 03/13/25 22:57: Hepatitis A IgM Ab Negative, Hep Bs Antigen Negative, Hep B Core IgM Ab Negative, Hepatitis C Ab (EIA) Non Reactive, Hep C Ab Comment Comment D/C Instructions DC O2, CPAP, BIPAP Needs Home O2 Discharge instructions: No Meaningful Use Info Meaningful Use Meaningful Use Diagnoses (Choose all that apply): None applicable Discharge Plan Admission Admit Date/Time: 03/13/25 22:47 Primary Reason for Your Visit: Acute EtOH abuse detoxification Attending Provider: Mary Goddard Primary Care Provider: Care Physician,No Primary Consulting Providers: Arnaud Ritchie Discharge Orders/Prescriptions Prescriptions: No Action buprenorphine-naloxone 8-2 mg tablet, sublingual 1 tab sublingual BID Referrals / Follow Up: Care Physician,No Primary [Primary Care Provider] - Disposition Disposition (needs filled in before D/C Order can be placed): Home, Self Care
== END 2025-03-15 17:51 | disposition left against medical advice (07) | DRG 894 ==
LOC: ED 22:51 → MS3 23:26
PROVIDERS: Admitting Provider Hospitalist; Emergency Provider Emergency Medicine; Referring Provider Emergency Medicine; Visit Provider Family Medicine
DX: F10.129 Alcohol abuse with intoxication, unspecified (principal); F17.290 Nicotine dependence, other tobacco product, uncomplicated; K70.10 Alcoholic hepatitis without ascites; K59.00 Constipation, unspecified; L73.2 Hidradenitis suppurativa; Z53.29 Procedure and treatment not carried out because of patient's decision for other reasons; Z79.891 Long term (current) use of opiate analgesic; Z87.898 Personal history of other specified conditions
CPT/HCPCS: 36415; 80048; 80053; 80074; 80307; 82077; 83735; 84100; 85025; 85027; 99284; A4216

== ENCOUNTER 2025-06-29 13:43 | Inpatient (IN) | payer SELFPAY ==
[2025-06-29] VITALS (7 sets, daily range): BP systolic 139–155; BP diastolic 61–105; PULSE 101–120; RESP 16–20; TEMP 36.4–37.1; O2SAT 96–99; BMI 21.0; BMI 19.3
--- NOTE | 2025-06-29 14:01 | EDS_ITS ---
HPI History of Present Illness Chief Complaint: Substance Abuse Narrative Narrative: 40-year-old male past medical history of alcoholism states that he presents today with his sister for detox from alcohol. His last detox was in March of this year. He states he went through this particular program and detox and had been successful until about 4 weeks ago. He thought he could handle 1 alcoholic drink, but now is drinking daily. He will drink [employer] vodka, whiskey, or beer. He states what ever he can afford at the time. His last drink was earlier this morning as he states he was drinking throughout the night. He might feel slightly nauseated and shaky but denies any vomiting. No abdominal pain, no other symptoms. [facility] Medical History Desire for detoxification Alcohol abuse Intertrigo Generalized headaches Drug abuse Bone fracture Hidradenitis Home Medications Medication Instructions Recorded Last Taken Type buprenorphine 8 mg-naloxone 2 mg 1 tab sublingual BID drug detox 03/14/25 06/29/25 History sublingual tablet acetaminophen 500 mg capsule 500 mg PO Q6H PRN fever o r pain 06/29/25 Unknown History Allergy/AdvReac Type Severity Reaction Status Date / Time No Known Allergies Allergy Verified 06/29/25 13:45 Family History Other No pertinent family history Surgical History History of excision of lesion Social History Smoking Status: Current every day smoker tobacco type: e-cigarettes alcohol intake: former substance use type: former substance user ROS ROS ED ROS Narrative Review of systems is positive for nausea and shakiness. Denies chest pain, shortness of breath, or other symptoms. States he feels dehydrated. EXAM Physical Exam Narrative Exam Narrative: Afebrile. Vital signs noted. Nontoxic appearing. Cardiovascular examination reveals positive tachycardia. Lungs are clear to auscultation bilaterally. Abdomen is soft and nontender without guarding or rebound. Positive bowel sounds. Neurological examination nonfocal, nonlateralizing. Seen ambulating to ED room without difficulty. Const Vital Signs: 06/29/25 13:44 06/29/25 14:08 Temperature 98.5 F 97.6 F L Temperature Source Oral Temporal Pulse Rate 113 H 120 H Respiratory Rate 18 20 H Blood Pressure 154/104 H Blood Pressure Mean 120 Pulse Ox 97 96 Oxygen Delivery Method Room Air Room Air MDM MDM MDM Narrative Medical decision making narrative: I do not feel that differential diagnosis is applicable in this case. Patient wants detox from alcohol. I reviewed his prior records. As he is tachycardic and mildly hypertensive, he was given phenobarbital orally here. CBC, CMP, alcohol level and urine ordered for drugs of abuse is currently pending. IV inserted by RN. I reviewed his laboratory work and he has normal white count of 5.2 with hemoglobin 15.0, hematocrit 41.5, platelet count normal at 164. CMP is remarkable for glucose of 133 with a normal anion gap of 15. Normal sodium and potassium. LFTs show AST slightly elevated at 43. Ethyl alcohol low at 73.9. Patient was given phenobarbital. Upon repeat examination, states he feels somewhat the same if not worse. I do not feel he requires Ativan currently. I discussed the patient with Dr. Josh Escobedo. He inquired if he is still on Suboxone. In discussion with the patient, he does still take it. Additionally, in review of his prior discharge summary, patient had signed out AMA when initially he stated that he had stayed and felt well, then was discharged. Regardless, patient will be admitted for his desire for detoxification from alcohol. Disposition is admitted in stable condition. History & Record Review Discussion w/independent historian: Patient Lab Data Attestation: I reviewed the patient's lab results. Labs: Laboratory Results - last 24 hr 06/29/25 14:07 WBC 5.2 RBC 4.80 Hgb 15.0 Hct 41.5 MCV 86.5 MCH 31.3 MCHC 36.1 H RDW Std Deviation 41.1 RDW Coeff of Viry 13.2 Plt Count 164 MPV 10.4 Immature Gran % (Auto) 0.400 Neut % (Auto) 72.1 H Lymph % (Auto) 19.6 [place] % (Auto) 6.7 Eos % (Auto) 0.2 Baso % (Auto) 1.0 Absolute Neuts (auto) 3.8 Absolute Lymphs (auto) 1.02 Nucleated RBC % 0 Sodium 137 Potassium 3.7 Chloride 98 Carbon Dioxide 24.5 Anion Gap 15 BUN 10 Creatinine 0.85 Estim Creat Clear Calc 133.81 Est GFR (MDRD) Non-Af 120 BUN/Creatinine Ratio 12.2 Glucose 133 H Calcium 9.5 Total Bilirubin 0.70 AST 43 H ALT 42 Alkaline Phosphatase 87 Total Protein 7.5 Albumin 4.6 Globulin 2.9 Albumin/Globulin Ratio 1.6 Ethyl Alcohol 73.9 H Management Discussion w/another healthcare provider: Hospitalist (Dr. Escobedo) Discharge Plan Dx/Rx/DC Orders Clinical Impression: Alcohol withdrawal, Desire for detoxification, Alcoholism Disposition Disposition: Acute Care Hospital [facility]
--- OUTSIDE RECORDS SUMMARY | 2025-06-29 14:06 | XMS RPT_ITS | CCD ---
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 0.83-4.51 [facility] Comment on above: Performed By: #### L 501.9100, L500.4050, L505.5000, L100.0100 #### [facility] [address] [place], [address] Absolute Neut 3.7 X10 3/uL Normal 2.0-7.7 [facility] Comment on above: Performed By: #### L 501.9100, L500.4050, L505.5000, L100.0100 #### [facility] [address] [place], [address] Basophils/100 WBC (Bld) 0.4 % Normal 0-1 [facility] Comment on above: Performed By: #### L 501.9100, L500.4050, L505.5000, L100.0100 #### [facility] [address] [place], [address] Eosinophils/100 WBC (Bld) 0.9 % Normal 0-5 [facility] Comment on above: Performed By: #### L 501.9100, L500.4050, L505.5000, L100.0100 #### [facility] [address] [place], [address] Erythrocyte distribution width (RBC) [Ratio] 12.2 % Normal 11.6-14.6 [facility] Comment on above: Performed By: #### L 501.9100, L500.4050, L505.5000, L100.0100 #### [facility] [address] [place], [address] Hematocrit (Bld) [Volume fraction] 47.8 % Normal 40-54 [facility] Comment on above: Performed By: #### L 501.9100, L500.4050, L505.5000, L100.0100 #### [facility] [address] [place], [address] Hemoglobin (Bld) [Mass/Vol] 16.5 g/dL Normal 13.0-16.5 [facility] Comment on above: Performed By: #### L 501.9100, L500.4050, L505.5000, L100.0100 #### [facility] [address] [place], [address] IG% 0.400 Normal 0.0-0.9 [facility] Comment on above: Result Comment: IG% - Immature Granulocytes (promyelocytes, myelocytes and metamyelocytes) > 1% indicates that a LEFT SHIFT is Present. Performed By: #### L 501.9100, L500.4050, L505.5000, L100.0100 #### [facility] [address] [place], [address] Lymphocytes/100 WBC (Bld) 23.4 % Normal 19-41 [facility] Comment on above: Performed By: #### L 501.9100, L500.4050, L505.5000, L100.0100 #### [facility] [address] [place], [address] MCH (RBC) [Entitic mass] 32.5 pg High 27.0-32.0 [facility] Comment on above: Performed By: #### L 501.9100, L500.4050, L505.5000, L100.0100 #### [facility] [address] [place], [address] MCHC (RBC) [Mass/Vol] 34.5 g/dL Normal 32-36 [facility] Comment on above: Performed By: #### L 501.9100, L500.4050, L505.5000, L100.0100 #### [facility] [address] [place], [address] MCV (RBC) [Entitic vol] 94.3 fL High 80-94 [facility] Comment on above: Performed By: #### L 501.9100, L500.4050, L505.5000, L100.0100 #### [facility] [address] [place], [address] Monocytes/100 WBC (Bld) 5.6 % Normal 0-10 [facility] Comment on above: Performed By: #### L 501.9100, L500.4050, L505.5000, L100.0100 #### [facility] [address] [place], [address] Neutrophils/100 WBC (Bld) 69.3 % Normal 47-70 [facility] Comment on above: Performed By: #### L 501.9100, L500.4050, L505.5000, L100.0100 #### [facility] [address] [place], [address] Nucleated RBC (Bld) [#/Vol] 0 10*3/uL Normal 0-5 [facility] Comment on above: Performed By: #### L 501.9100, L500.4050, L505.5000, L100.0100 #### [facility] [address] [place], [address] Platelet mean volume (Bld) [Entitic vol] 10.1 fL Normal 6.2-12.0 [facility] Comment on above: Performed By: #### L 501.9100, L500.4050, L505.5000, L100.0100 #### [facility] [address] [place], [address] Platelets (Bld) [#/Vol] 175 10*3/uL Normal 150-450 [facility] Comment on above: Performed By: #### L 501.9100, L500.4050, L505.5000, L100.0100 #### [facility] [address] [place], [address] RBC (Bld) [#/Vol] 5.07 10*6/uL Normal 4.6-6.2 [facility] Comment on above: Performed By: #### L 501.9100, L500.4050, L505.5000, L100.0100 #### [facility] [address] [place], [address] RDW SD 42.3 fl Normal 35.1-43.9 [facility] Comment on above: Performed By: #### L 501.9100, L500.4050, L505.5000, L100.0100 #### [facility] [address] [place], [address] WBC (Bld) [#/Vol] 5.3 10*3/uL Normal 4.4-11.0 [facility] Comment on above: Performed By: #### L 501.9100, L500.4050, L505.5000, L100.0100 #### [facility] [address] [place], [address] Carbon dioxide, total [Moles /volume] in Central venous bloodOrdered By: Dandy Brink on 03-13-2025 CO2 [Moles/Vol] 26.8 mmol/L 21.0-32.0 [facility] Chloride assayOrdered By: No Brink on 03-13-2025 Chloride [Moles/Vol] 101 mmol/L 98-108 [facility] Comprehensive Metabolic Prof ilon 03-13-2025 Albumin [Mass/Vol] 4.8 g/dL Normal 3.5-5.0 [facility] Comment on above: Performed By: #### L 501.9100, L500.4050, L505.5000, L100.0100 ####[facility] [address] [place], [address] Albumin/Globulin [Mass ratio] 1.6 {ratio} Normal 0.9-2.4 [facility] Comment on above: Performed By: #### L 501.9100, L500.4050, L505.5000, L100.0100 ####[facility] [address] [place], [address] ALK PHOS 93 U/L Normal 40-129 [facility] Comment on above: Performed By: #### L 501.9100, L500.4050, L505.5000, L100.0100 ####[facility] [address] [place], [address] ALT [Catalytic activity/Vol] 48 U/L High <=46 [facility] Comment on above: Performed By: #### L 501.9100, L500.4050, L505.5000, L100.0100 ####[facility] [address] [place], [address] AST [Catalytic activity/Vol] 79 U/L High <=37 [facility] Comment on above: Performed By: #### L 501.9100, L500.4050, L505.5000, L100.0100 ####[facility] [address] [place], [address] Bilirubin [Mass/Vol] 0.35 mg/dL Normal 0.00-1.30 [facility] Comment on above: Performed By: #### L 501.9100, L500.4050, L505.5000, L100.0100 ####[facility] [address] [place], [address] BUN/CRE 10.8 RATIO Normal 10-20 [facility] Comment on above: Performed By: #### L 501.9100, L500.4050, L505.5000, L100.0100 ####[facility] [address] [place], [address] Calcium [Mass/Vol] 9.4 mg/dL Normal 7.6-11.0 [facility] Comment on above: Performed By: #### L 501.9100, L500.4050, L505.5000, L100.0100 ####[facility] [address] [place], [address] Chloride [Moles/Vol] 101 mmol/L Normal 98-108 [facility] Comment on above: Performed By: #### L 501.9100, L500.4050, L505.5000, L100.0100 ####[facility] [address] [place], [address] CO2 [Moles/Vol] 26.8 mmol/L Normal 21.0-32.0 [facility] Comment on above: Performed By: #### L 501.9100, L500.4050, L505.5000, L100.0100 ####[facility] [address] [place], [address] Creatinine [Mass/Vol] 0.90 mg/dL Normal 0.70-1.20 [facility] Comment on above: Performed By: #### L 501.9100, L500.4050, L505.5000, L100.0100 ####[facility] [address] [place], [address] ECRCL 137.37 ml/min Normal 50-250 [facility] Comment on above: Performed By: #### L 501.9100, L500.4050, L505.5000, L100.0100 ####[facility] [address] [place], [address] GAP 12 Normal 5-15 [facility] Comment on above: Performed By: #### L 501.9100, L500.4050, L505.5000, L100.0100 ####[facility] [address] [place], [address] GFR/1.73 sq M.predicted among non-blacks MDRD (S/P/Bld) [Vol rate/Area] 117 mL/min/{1.73_m2} Normal >60 [facility] Comment on above: Result Comment: mL/m in/1.73m2 CKD-EPI Creatinine Equation (2020) Performed By: #### L 501.9100, L500.4050, L505.5000, L100.0100 ####[facility] [address] [place], [address] Globulin (S) [Mass/Vol] 3.0 g/dL Normal 2.2-4.2 [facility] Comment on above: Performed By: #### L 501.9100, L500.4050, L505.5000, L100.0100 ####[facility] [address] [place], [address] Glucose [Mass/Vol] 116 mg/dL High 70-99 [facility] Comment on above: Performed By: #### L 501.9100, L500.4050, L505.5000, L100.0100 ####[facility] [address] [place], [address] Potassium [Moles/Vol] 4.3 mmol/L Normal 3.3-5.1 [facility] Comment on above: Performed By: #### L 501.9100, L500.4050, L505.5000, L100.0100 ####[facility] [address] [place], [address] Sodium [Moles/Vol] 140 mmol/L Normal 133-145 [facility] Comment on above: Performed By: #### L 501.9100, L500.4050, L505.5000, L100.0100 ####[facility] [address] [place], [address] T PROT 7.8 g/dL Normal 5.9-8.4 [facility] Comment on above: Performed By: #### L 501.9100, L500.4050, L505.5000, L100.0100 ####[facility] [address] [place], [address] Urea nitrogen [Mass/Vol] 10 mg/dL Normal 4-19 [facility] Comment on above: Performed By: #### L 501.9100, L500.4050, L505.5000, L100.0100 ####[facility] [address] [place], [address] Emergency Department Summary on 03-13-2025 Emergency Department Summary [facility] Medical Records Department [address] [place] [address] Emergency Department Summary 03/13/25 MR#: [id number] Acct: [id number] Name: VINAY ARMENDARIZ Rep #: [id number] : 1995 30 From: Dandy Brink DO PCP: Care Physician,No Primary Status:ADM IN Location: MS3 [id number] HPI History of Present Illness Chief Complaint: ETOH Intox Informant: patient and spouse/S.O. Narrative Narrative: Patient is a 30-year-old male with remote history of opioid/heroin abuse who reports he is 8 years sober but on Suboxone. He states over the last 4 months or so he has drank 1/5 of liquor daily. He reports that he would typically have to wake in the middle the night to help with symptoms and have a drink first thing when he wakes up. He states that he is not ready to seek help and is seeking placement in the hospital for detox. He states other than the Suboxone he takes no daily medication and he denies any illicit drug use. [facility] Medical History Intertrigo Generalized headaches Drug abuse Bone fracture Hidradenitis Home Medications ???Medication ???Instructions ???Recorded ???Last Taken ???Type buprenorphine 8 mg-naloxone 2 mg 1 tab sublingual BID drug detox 03/13/25 08:00 History sublingual tablet Allergy/AdvReac Type Severity Reaction Status Date / Time No Known Allergies Allergy Verified 03/13/25 21:17 Family History Other No pertinent family history Surgical History History of excision of lesion Social History Smoking Status: Current every day smoker tobacco type: e-cigarettes alcohol intake: former substance use type: former substance user ROS ROS ED Constitutional Constitutional ED: Denies chills or fever(s) Eyes Eyes: Denies change in vision ENT ENT ED: Denies sore throat Cardiovascular Cardiovascular: Denies chest pain Respiratory/Chest Respiratory/Chest: Denies cough or dyspnea Gastrointestinal Gastrointestinal: Denies abdominal pain, diarrhea, nausea or vomiting Musculoskeletal Musculoskeletal: Denies myalgias Integumentary Denies rash Neurologic Neurologic: Denies headache(s) or paresthesias Hematologic/Lymphatic Hematologic/Lymphatic : Denies easy bleeding or easy bruising EXAM Physical Exam Const Vital Signs: 03/13/25 21:17 Temperature 98.6 F Temperature Source Oral Pulse Rate 104 H Respiratory Rate 16 Blood Pressure 126/92 H Blood Pressure Mean 103 Pulse Ox 99 Oxygen Delivery Method Room Air Positive well nourished and well developed General Appearance ED: well developed; Negative for pallor HEENT HEENT Narrative: Normocephalic atraumatic Eyes EOMs intact bilaterally Eyes Narrative: Pupils are dilated and slightly sluggish to respond to light consistent with alcohol use. There is also mild scleral injection. General Eye ED: Negative for scleral icterus Neck supple Resp normal respiratory effort and clear to auscultation bilaterally Cardio regular rate and regular rhythm GI normal to inspection, nondistended, normoactive bowel sounds, non-tender, non-distended and no masses GI Narrative: No organomegaly noted Auscultation: normoactive bowel sounds Palpation: soft Extremity normal to inspection Neuro oriented x3, CN's II-XII intact bilaterally and no sensory deficits noted Sensorium / Orientation: alert Motor Exam: strength 5/5 throughout Psych mental status grossly normal Skin no rashes or lesions noted and no wounds General Skin Exam: Negative for jaundice or pallor MDM MDM MDM Narrative Medical decision making narrative: Patient arrived to the ER awake and alert without obvious signs of alcohol withdrawal. He reports he has drank 1/5 of liquor daily for approximately 4 months. Based on this reported amount of alcohol and his symptoms that he was states he obtains when he tries to sleep there is high likelihood for him to progress to severe withdrawal/delirium tremens. Therefore I do feel the safest option will be admission to the hospital for continued evaluation and treatment to prevent this occurrence. Basic labs were obtained which show no clinically significant findings other than his elevated alcohol level which correlates with his use. As the patient is not exhibiting withdrawal symptoms at this time I did not provide any type of Ativan or phenobarbital. However as the patient is at high risk for progression to DTs from withdrawal symptoms the hospitalist was contacted and agrees to accept the patient for continued treatment of his alcohol abuse. History Record Review Discu (more content not included)... Normal [facility] Eosinophil percentageOrdered By: ED PROVIDER on 03-13-2025 Eosinophils/100 WBC (Bld) 0.9 % 0-5 [facility] Erythrocyte distribution wid th ratioOrdered By: ED PROVIDER on 03-13-2025 Erythrocyte distribution width (RBC) [Ratio] 12.2 % 11.6-14.6 [facility] Erythrocyte distribution wid th standard deviationOrdered By: ED PROVIDER on 03-13-2025 Erythrocyte distribution width (RBC) [Ratio] 42.3 fl 35.1-43.9 [facility] Glomerular filtration rate ( GFR) estimation/1.73 sq m using serum, plasma, or whole bOrdered By: Dandy Brink on 03-13-2025 GFR/1.73 sq M.predicted among non-blacks MDRD (S/P/Bld) [Vol rate/Area] 117 mL/min/{1.73_m2} >60 [facility] Comment on above: mL/min/1.73m2 CKD-EP I Creatinine Equation (2020) H AND P Exam - Hospitaliston 03-13-2025 H&P Exam - Hospitalist [facility] Medical Records Department [address] [place] [address] H P Exam - Hospitalist 03/13/25 [id number] MR#: [id number] Acct: [id number] Name: VINAY ARMENDARIZ Cony Rep #: [id number] : 1995 30 From: Arnaud Ritchie DO PCP: Care Physician,No Primary Status:ADM IN Location: [facility] JW630-1 HPI - General General Date of Admission: 03/13/25 Date of Service: 03/13/25 Chief Complaint: Alcohol detox HPI Narrative VINAY ARMENDARIZ, is a 30 M who presented to [facility] ED on 03/13/2025 with desire for alcohol detox. Saw patient at bedside in the ED, significant other present. Patient was mildly anxious appearing but otherwise sitting back comfortably in bed and in no acute distress. Patient has history of opiate abuse but reports being clean for over 8 years and is on Suboxone. No other significant medical history, takes no other medications at baseline. He reports minimal alcohol use until about 6 months ago. He has now been drinking heavily for the past 3 to 4 months. Has been drinking 1/5 of liquor daily. No prior history of alcohol detox. Alcohol level 271 on admit. Reports feeling anxious but denies any tremors or other withdrawal symptoms currently. Will be admitted for further management. [facility] Medical History Intertrigo Generalized headaches Drug abuse Bone fracture Hidradenitis Home Medications ???Medication ???Instructions ???Recorded ???Last Taken ???Type buprenorphine 8 mg-naloxone 2 mg 1 tab sublingual BID drug detox 03/13/25 08:00 History sublingual tablet Allergy/AdvReac Type Severity Reaction Status Date / Time No Known Allergies Allergy Verified 03/13/25 21:17 Family History Other No pertinent family history Surgical History History of excision of lesion Social History Smoking Status: Current every day smoker tobacco type: e-cigarettes alcohol intake: former substance use type: former substance user ROS Constitutional Constitutional: Denies chills, fatigue, fever(s) or weakness Eyes Eyes: Denies change in vision Cardiovascular Cardiovascular: Denies chest pain Respiratory/Chest Respiratory/Chest: Denies shortness of breath at rest Gastrointestinal Gastrointestinal: Reports nausea; Denies abdominal pain or vomiting Psychiatric Psychiatric: Reports anxiety Vital Signs Vital Signs Vital Signs: 03/13/25 21:17 Temperature 98.6 F Temperature Source Oral Pulse Rate 104 H Respiratory Rate 16 Blood Pressure 126/92 H Blood Pressure Mean 103 Pulse Ox 99 Oxygen Delivery Method Room Air Weight Weight: 80.921 kg Body Mass Index (BMI) 22.8 Physical Exam Const alert, oriented x3, no apparent distress and average body habitus Constitutional Narrative: Pleasant younger male, mildly anxious and flushed appearing, otherwise sitting back comfortably in bed, conversing normally, in no acute distress. General Appearance: cooperative and comfortable HEENT normocephalic, head/scalp atraumatic, hearing grossly normal bilaterally, nasal mucous membranes and turbinates normal and moist oral mucous membranes Eyes PERRL, EOMs intact bilaterally and conjunctivae normal Neck full ROM Chest inspection of chest normal Resp normal respiratory effort, normal air movement, no use of accessory muscles and clear to auscultation bilaterally Cardio regular rate, regular rhythm, no murmurs and peripheral pulses 2+ throughout GI normal to inspection, nondistended, normoactive bowel sounds, soft to palpation, non-tender and non- distended Back/Spine normal ROM Extremity normal to inspection, full ROM and no pedal edema Skin no rashes or lesions noted Psych mental status grossly normal Mood Affect: anxious Results Lab / Micro Data 03/13/25 21:42 03/13/25 21:42 Labs: Laboratory Results - last 24 hr 03/13/25 21:42: WBC 5.3, RBC 5.07, Hgb 16.5, Hct 47.8, MCV 94.3 H, MCH 32.5 H, MCHC 34.5, RDW Std Deviation 42.3, RDW Coeff of Viry 12.2, Plt Count 175, MPV 10.1, Immature Gran % (Auto) 0.400, Neut % (Auto) 69.3, Lymph % (Auto) 23.4, Dewey % (Auto) 5.6, Eos % (Auto) 0.9, Baso % (Auto) 0.4, Absolute Neuts (auto) 3.7, Absolute Lymphs (auto) 1.25, Nucleated RBC % 0, Sodium 140, Potassium 4.3, Chloride 101, Carbon Dioxide 26.8, Anion Gap 12, BUN 10, Creatinine 0.90, Estim Creat Clear Calc 137.37, Est GFR (MDRD) Non-Af 117, BUN/Creatinine Ratio 10.8, Glucose 116 H, Calcium 9.4, Total Bilirubin 0.35, AST 79 H, ALT 48 H, Alkaline Phosphatase 93, Total Protein 7.8, Albumin 4.8, Globulin 3.0, Albumin/Globulin Ratio 1.6, Urine (more content not included)... Normal [facility] Hematocrit Auto (Bld) [Volum e fraction]Ordered By: ED PROVIDER on 03-13-2025 Hematocrit (Bld) [Volume fraction] 47.8 % 40-54 [facility] Hemoglobin measurementOrdere d By: ED PROVIDER on 03-13-2025 Hemoglobin (Bld) [Mass/Vol] 16.5 g/dL 13.0-16.5 [facility] Immature granulocytes/100 WB C Auto (Bld)Ordered By: ED PROVIDER on 03-13-2025 Immature granulocytes/100 WBC (Bld) 0.400 % 0.0-0.9 [facility] Comment on above: IG% - Immature Granu locytes (promyelocytes, myelocytes and metamyelocytes) > 1% indicates that a LEFT SHIFT is Present. Laboratory - Chemistry and C hemistry - challengeOrdered By: Dandy Brink on 03-13-2025 AST [Catalytic activity/Vol] 79 U/L High <38 [facility] MCV (mean corpuscular volume ) determinationOrdered By: ED PROVIDER on 03-13-2025 MCV (RBC) [Entitic vol] 94.3 fL High 80-94 [facility] Mean corpuscular hemoglobin (MCH) determinationOrdered By: ED PROVIDER on 03-13-2025 MCH (RBC) [Entitic mass] 32.5 pg High 27.0-32.0 [facility] Mean corpuscular hemoglobin concentration (MCHC) determinationOrdered By: ED PROVIDER on 03-13-2025 MCHC (RBC) [Mass/Vol] 34.5 g/dL 32-36 [facility] Mean platelet volume determi nationOrdered By: ED PROVIDER on 03-13-2025 Platelet mean volume (Bld) [Entitic vol] 10.1 fL 6.2-12.0 [facility] Monocyte percentageOrdered B y: ED PROVIDER on 03-13-2025 Monocytes/100 WBC (Bld) 5.6 % 0-10 [facility] Neutrophil percentageOrdered By: ED PROVIDER on 03-13-2025 Neutrophils/100 WBC (Bld) 69.3 % 47-70 [facility] No Panel InformationOrdered By: Arnaud Ritchie on 03-13-2025 Hepatitis C Antibody Comment Comment . [facility] Comment on above: Not infected with HC V unless early or acute infection issuspected (which may be delayed in an immunocompromisedindividual), or other evidence exists to indicate HCVinfection.Performed at: [facility] [id number] Director: Perry Baugh PhD, Phone: [phone] No Panel InformationOrdered By: Dandy Brink on 03-13-2025 Urine Buprenorphine Qualitative Positive < 200 ng/mL [facility] Comment on above: If confirmation test ing is needed, a separate order will be required to send out testing to the reference laboratory. Urine Oxycodone Screen Negative < 100 ng/mL [facility] Nucleated red blood cell per centageOrdered By: ED PROVIDER on 03-13-2025 Nucleated RBC/100 WBC (Bld) [Ratio] 0 % 0-5 [facility] Platelet countOrdered By: ED PROVIDER on 03-13-2025 Platelets (Bld) [#/Vol] 175 10*3/uL 150-450 [facility] Potassium measurement (mass/ volume)Ordered By: Dandy Brink on 03-13-2025 Potassium (Unsp spec) [Mass/Vol] 4.3 mmol/L 3.3-5.1 [facility] Quantitative urine opiates m easurementOrdered By: Dandy Brink on 03-13-2025 Opiates Ql (U) Negative < 300 ng/mL [facility] RBC Auto (Bld) [#/Vol]Ordere d By: ED PROVIDER on 03-13-2025 RBC (Bld) [#/Vol] 5.07 10*6/uL 4.6-6.2 [facility] Screening urine fentanyl shayan surementOrdered By: Dandy Brink on 03-13-2025 fentaNYL Screen Ql (U) Negative [facility] Serum creatinine measurement (mass/volume)Ordered By: Dandy Brink on 03-13-2025 Creatinine [Mass/Vol] 0.90 mg/dL 0.70-1.20 [facility] Serum globulin measurementOr dered By: Dandy Brink on 03-13-2025 Globulin (S) [Mass/Vol] 3.0 g/dL 2.2-4.2 [facility] Serum glucose measurement (m ass/volume)Ordered By: Dandy Brink on 03-13-2025 Glucose [Mass/Vol] 116 mg/dL High 70-99 [facility] Serum or plasma alanine dotson otransferase (ALT) measurementOrdered By: Dandy Brink on 03-13-2025 ALT [Catalytic activity/Vol] 48 U/L High <47 [facility] Serum or plasma albumin jorge urement (mass/volume)Ordered By: Dandy Brink on 03-13-2025 Albumin [Mass/Vol] 4.8 g/dL 3.5-5.0 [facility] Serum or plasma albumin/glob ulin mass ratioOrdered By: Dandy Brink on 03-13-2025 Albumin/Globulin [Mass ratio] 1.6 {ratio} 0.9-2.4 [facility] Serum or plasma alkaline patel sphatase measurementOrdered By: Dandy Brink on 03-13-2025 ALP [Catalytic activity/Vol] 93 U/L 40-129 [facility] Serum or plasma calcium jorge urement (mass/volume)Ordered By: Dandy Brink on 03-13-2025 Calcium [Mass/Vol] 9.4 mg/dL 7.6-11.0 [facility] Serum or plasma ethanol jorge urement (mass/volume)Ordered By: Dandy Brink on 03-13-2025 Ethanol [Mass/Vol] 271.0 mg/dL High <10.1 [facility] Comment on above: This test is for med ical purposes only. The legal definition of intoxication varies according to local law. Serum or plasma hepatitis B virus surface antigen detection by immunoassayOrdered By: Arnaud Ritchie on 03-13-2025 HBV surface Ag IA Ql Negative Negative [facility] Serum or plasma urea nitroge n measurement (mass/volume)Ordered By: Dandy Brink on 03-13-2025 Urea nitrogen [Mass/Vol] 10 mg/dL 4-19 [facility] Sodium levelOrdered By: Syed Brink on 03-13-2025 Sodium [Moles/Vol] 140 mmol/L 133-145 [facility] Total proteinOrdered By: Aidan Brink on 03-13-2025 Protein [Mass/Vol] 7.8 g/dL 5.9-8.4 [facility] Urine Drug Screen (VISTA)on 03-13-2025 AMPHETAMINES Negative Normal <1000 ng/mL [facility] Comment on above: Performed By: #### L 501.9100, L500.4050, L505.5000, L100.0100 #### [facility] [address] [facility] [address] BARBITIURATES Negative Normal < 200 ng/mL [facility] Comment on above: Performed By: #### L 501.9100, L500.4050, L505.5000, L100.0100 #### [facility] [address] [place], [address] BENZODIAZIPINE Negative Normal < 200 ng/mL [facility] Comment on above: Performed By: #### L 501.9100, L500.4050, L505.5000, L100.0100 #### [facility] [address] [place], [address] BUP Ur Drug Scr Positive Normal < 200 ng/mL [facility] Comment on above: Result Comment: If c onfirmation testing is needed, a separate order will be required to send out testing to the reference laboratory. Performed By: #### L 501.9100, L500.4050, L505.5000, L100.0100 #### [facility] [address] [place], [address] COCAINE Negative Normal < 300 ng/mL [facility] Comment on above: Performed By: #### L 501.9100, L500.4050, L505.5000, L100.0100 #### [facility] [address] [place], [address] Fentanyl Negative Normal [facility] Comment on above: Performed By: #### L 501.9100, L500.4050, L505.5000, L100.0100 #### [facility] [address] [place], [address] METHADONE Negative Normal < 300 ng/mL [facility] Comment on above: Performed By: #### L 501.9100, L500.4050, L505.5000, L100.0100 #### [facility] [address] [place], [address] OPIATES Negative Normal < 300 ng/mL [facility] Comment on above: Performed By: #### L 501.9100, L500.4050, L505.5000, L100.0100 #### [facility] [address] [place], [address] OXYCODONE Negative Normal < 100 ng/mL [facility] Comment on above: Performed By: #### L 501.9100, L500.4050, L505.5000, L100.0100 #### [facility] [address] [place], [address] PCP Negative Normal < 25 ng/mL [facility] Comment on above: Performed By: #### L 501.9100, L500.4050, L505.5000, L100.0100 #### [facility] [address] [place], [address] THC Positive Normal < 50 ng/mL [facility] Comment on above: Result Comment: If c onfirmation testing is needed, a separate order will be required to send out testing to the reference laboratory. Performed By: #### L 501.9100, L500.4050, L505.5000, L100.0100 #### [facility] [address] [place], [address] Urine benzodiazepine levelOr dered By: Dandy Brink on 03-13-2025 Benzodiazepines Ql (U) Negative < 200 ng/mL [facility] Urine cocaine levelOrdered B y: Dandy Brink on 03-13-2025 Cocaine Ql (U) Negative < 300 ng/mL [facility] Urine hexhn-6-bidqlqkcoipauq abinol (THC) measurementOrdered By: Dandy Brink on 03-13-2025 Cannabinoids Screen Ql (U) Positive < 50 ng/mL [facility] Comment on above: If confirmation test ing is needed, a separate order will be required to send out testing to the reference laboratory. Urine phencyclidine (PCP) de tectionOrdered By: Dandy Brink on 03-13-2025 Phencyclidine Ql (U) Negative < 25 ng/mL [facility] White blood cell (WBC) count Ordered By: ED PROVIDER on 03-13-2025 WBC (Bld) [#/Vol] 5.3 10*3/uL 4.4-11.0 [facility] CNOVon 06-16-2024 CNOV Office Visit (UCWSTR ) VINAY ARMENDARIZ ([id number]) 1995 M Date Time Provider Department 06/16/24 2:45 PM [facility] During your visit today, we recorded the following information about you: Temperature Pulse Respiration Blood pressure 97.2 degrees 78/minute 16/minute 118/68 Weight 76.5 kg Abdullahi Merino APRN.[employer] 06/16/2024 3:17 PM Signed Subjective HPI Nontoxic-appearing male presents urgent care with persistent cough. Duration of symptoms 3 to 4 weeks. Associated symptoms persistent cough. Cough has been improving pain productive recently. Presents today for evaluation. Sick contacts at home. OTC medications none. No chest pain shortness of breath pleuritic pain hemoptysis. No fevers. Past medical history prescription medications allergies reviewed. .Patient presents with: Cough: productive x 3-4 weeks PAST MEDICAL HISTORY Diagnosis Date Acne Acne Vulgaris: Grade IV on lower face/chin 12/16/2009 Depression 05/09/2013 Eczematous dermatitis 05/19/2010 Hidradenitis suppurativa 08/04/2009 Irritant dermatitis 05/19/2010 Keratosis pilaris 05/19/2010 Sebaceous cyst 07/19/2009 Varicella age 5 years Xerosis cutis 05/19/2010 PAST SURGICAL HISTORY Procedure Laterality Date ADENOIDECTOMY PRIMARY Adenoidectomy PAST SURGICAL HISTORY OF 02/04/2010 Hidradenitis Suppurativa TONSILLECTOMY PRIMARY/SECONDARY Tonsillectomy ALLERGIES Anaprox [Naproxen] and Amoxicillin MEDICATIONS buPROPion XL (WELLBUTRIN XL) 300 mg 24 hr tablet Take 1 tablet by mouth every afternoon. meloxicam (MOBIC) 15 mg tablet Take 1 tablet by mouth every afternoon. propranolol (INDERAL) 20 mg tablet Take by mouth. Buprenorphine-nalOXon e (SUBOXONE) 8-2 mg film Dissolve under the tongue once daily. polyethylene glycol 3350 (MIRALAX, GLYCOLAX) 17 gram packet Take 1 Packet by mouth once daily. (Patient not taking: Reported on 06/16/2024) senna-docusate (SENNA-S) 8.6-50 mg per tablet Take 1 tablet by mouth twice daily. (Patient not taking: Reported on 06/16/2024) FAMILY HISTORY Problem Relation Age of Onset other (negative family history [Other]) Unknown Social History Tobacco Use Smoking status: Every Day Smokeless tobacco: Never Substance Use Topics Alcohol use: No Drug use: No BP 118/68 Pulse 78 Temp 36.2 ?C (97.2 ?F) Resp 16 Wt 76.5 kg (168 lb 10.4 oz) SpO2 98% BMI 21.65 kg/m? Review of Systems Constitutional: Negative for chills, fever and malaise/fatigue. HENT: Positive for congestion. Negative for ear discharge, ear pain, sinus pain and sore throat. Eyes: Negative for blurred vision, pain, discharge and redness. Respiratory: Positive for cough and sputum production. Negative for hemoptysis, shortness of breath, wheezing and stridor. Cardiovascular: Negative for chest pain. Gastrointestinal: Negative for abdominal pain, diarrhea, nausea and vomiting. Musculoskeletal: Negative for myalgias. Skin: Negative for itching and rash. Neurological: Negative for dizziness and headaches. Objective Physical Exam Constitutional: General: He is not in acute distress. Appearance: He is not diaphoretic. HENT: Head: Normocephalic. Jaw: No trismus, tenderness, swelling or pain on movement. Nose: Congestion present. Mouth/Throat: Mouth: Mucous membranes are moist. Pharynx: Oropharynx is clear. Uvula midline. No pharyngeal swelling, oropharyngeal exudate, posterior oropharyngeal erythema or uvula swelling. Eyes: Conjunctiva/sclera: Conjunctivae normal. Pupils: Pupils are equal, round, and reactive to light. Cardiovascular: Rate and Rhythm: Normal rate and regular rhythm. Heart sounds: Normal heart sounds. Pulmonary: Effort: Pulmonary effort is normal. No tachypnea, accessory muscle usage or respiratory distress. Breath sounds: No stridor. Rhonchi present. No wheezing or rales. Abdominal: General: There is no distension. Palpations: Abdomen is soft. Tenderness: There is no abdominal tenderness. There is no guarding or rebound. Musculoskeletal: Cervical back: Normal range of motion and neck supple. No edema, erythema, rigidity or tenderness. No pain with movement. Normal range of motion. Lymphadenopathy: Cervical: No cervical adenopathy. Skin: General: Skin is warm and dry. Neurological: Mental Status: He is alert and oriented to person, place, and time. ASSESSMENT/PLAN: 1. Lower resp. tract infection - ICD9: 519.8, ICD10: J22 Diagnosed with lower respiratory tract. Advantageous lung sounds noted right lobe. Placed on doxycycline. Follow-up with PCP 72 hours symptoms are not improving. Patient was educated on supportive therapies. Patient was instructed to immediately proceed to emergency room for any new, worsening, or symptoms lasting longer than anticipated. The patient's clinical presentation is otherwise unremarkable at this (more content not included)... Normal [facility] XR FINGER 2ND DIGIT 3 VIEWS LEFTon 06-05-2022 XR FINGER 2ND DIGIT 3 VIEWS LEFT ORIGINAL EXAMINATION: THREE XRAY VIEWS OF THE LEFT [id number]/1/2022 4:51 pm FINGER LEFT 3VW COMPARISON: None HISTORY: ORDERING SYSTEM PROVIDED HISTORY: Reason for Exam: pain FINDINGS: There is a fracture of the volar plate of the 2nd middle phalanx base; the fracture fragment is displaced anteriorly by 1.5 mm and involves approximately 5% of the articular surface. No significant angulation or rotation of the fracture fragment. No dislocation. No radiopaque foreign body. IMPRESSION: Minimally displaced volar plate avulsion fracture of the 2nd middle phalanx base. RECOMMENDATIONS: Unavailable Interpreted by: Kyle Callahan Preliminary Report By: Kyle Callahan Electronically signed By Kyle Callahan Dictated Date: 06/05/2022 4:55:55 PM Prelim Date: 06/05/2022 4:57:40 PM Sign Date: 06/05/2022 4:57:40 PM Ordering Provider: LATRELL CHILDERS [facility] ([place]) Absolute lymphocyte counton 05-25-2022 Lymphocytes Auto (Unsp spec) [#/Vol] 2.43 10*3/uL 0.83-4.51 [facility] Work Phone: [phone] Basophil percentageon 2021 Basophils/100 WBC (Bld) 0.5 % 0-1 [facility] Work Phone: [phone] Bilirubin [Mass/Vol] 0.50 mg/dL 0.20-1.00 [facility] Work Phone: [phone] Comment on above: For patients on eltr ombopag therapy, use of Dimension [place] TBIL is not recommended. Chloride [Moles/Vol] 107 mmol/L 98-107 [facility] Work Phone: [phone] Eosinophils/100 WBC (Bld) 2.5 % 0-5 [facility] Work Phone: [phone] Glucose [Mass/Vol] 109 mg/dL 74-106 [facility] Work Phone: [phone] Comment on above: Fasting Glucose resu lt from 100 to 125 mg/dL suggests IMPAIRED HOMEOSTASIS per A.D.A. criteria. Neutrophils (Bld) [#/Vol] 3.1 10*3/uL 2.0-7.7 [facility] Work Phone: [phone] Neutrophils/100 WBC (Bld) 52.2 % 47-70 [facility] Work Phone: [phone] Potassium [Moles/Vol] 3.8 mmol/L 3.5-5.1 [facility] Work Phone: [phone] Protein [Mass/Vol] 7.1 g/dL 6.4-8.2 [facility] Work Phone: Sodium [Moles/Vol] 141 mmol/L 136-145 [facility] Work Phone: WBC (Bld) [#/Vol] 6.0 10*3/uL 4.4-11.0 [facility] Work Phone: Blood erythrocytes count (nu mber/volume)on 05-25-2022 RBC (Bld) [#/Vol] 4.76 10*6/uL 4.6-6.2 [facility] Work Phone: Blood hemoglobin measurement (mass/volume)on 05-25-2022 Hemoglobin (Bld) [Mass/Vol] 14.0 g/dL 13.0-16.5 [facility] Work Phone: Blood lymphocytes/100 leukoc yteson 05-25-2022 Lymphocytes/100 WBC (Bld) 40.6 % 19-41 [facility] Work Phone: Blood monocytes/100 leukocyt eson 05-25-2022 Monocytes/100 WBC (Bld) 4.0 % 0-10 [facility] Work Phone: Blood platelet mean volumeon 05-25-2022 Platelet mean volume (Bld) [Entitic vol] 11.3 fL 6.2-12.0 [facility] Work Phone: Determination of erythrocyte mean corpuscular volume (MCV)on 05-25-2022 MCV (RBC) [Entitic vol] 84.5 fL 80-94 [facility] Work Phone: Hematocrit Auto (Bld) [Volum e fraction]on 05-25-2022 Hematocrit (Bld) [Volume fraction] 40.2 % 40-54 [facility] Work Phone: Laboratory - Chemistry and C hemistry - challengeon 05-25-2022 ALP [Catalytic activity/Vol] 81 U/L 45-117 [facility] Work Phone: ALT [Catalytic activity/Vol] 49 U/L 16-61 [facility] Work Phone: CO2 [Moles/Vol] 26.0 mmol/L 21.0-32.0 [facility] Work Phone: Globulin (S) [Mass/Vol] 3.2 g/dL 2.2-4.2 [facility] Work Phone: Urea nitrogen/Creatinine [Mass ratio] 22.9 mg/mg 10-20 [facility] Work Phone: [phone] Laboratory - Hematology and Cell countson 05-25-2022 Erythrocyte distribution width (RBC) [Entitic vol] 36.1 fL 35.1-43.9 [facility] Work Phone: Erythrocyte distribution width (RBC) [Ratio] 11.8 % 11.6-14.6 [facility] Work Phone: Immature granulocytes/100 WBC (Bld) 0.200 % 0.0-0.9 [facility] Work Phone: Comment on above: IG% - Immature Granu locytes (promyelocytes, myelocytes and metamyelocytes) > 1% indicates that a LEFT SHIFT is Present. MCH (RBC) [Entitic mass] 29.4 pg 27.0-32.0 [facility] Work Phone: Nucleated RBC/100 WBC (Bld) [Ratio] 0 % 0-5 [facility] Work Phone: MCHC Auto (RBC) [Mass/Vol]on 05-25-2022 MCHC (RBC) [Mass/Vol] 34.8 g/dL 32-36 [facility] Work Phone: No Panel Informationon 05-25 Estimated GFR (MDRD) Amer 127 mL/min >60 [facility] Work Phone: Comment on above: GFR Calc Estimated GFR (MDRD) Non-Af Amer 105 mL/min >60 [facility] Work Phone: Comment on above: Non- GFR Calc Thyroid Stimulating Hormone (TSH) 1.26 uIU/mL 0.358-3.74 [facility] Work Phone: Platelets bldon 05-25-2022 Platelets (Bld) [#/Vol] 180 10*3/uL 150-450 [facility] Work Phone: Serum or plasma albumin jorge urement (mass/volume)on 05-25-2022 Albumin [Mass/Vol] 3.9 g/dL 3.2-5.0 [facility] Work Phone: Serum or plasma albumin/glob ulin mass ratioon 05-25-2022 Albumin/Globulin [Mass ratio] 1.2 {ratio} 0.9-2.4 [facility] Work Phone: Serum or plasma calcium jorge urement (mass/volume)on 05-25-2022 Calcium [Mass/Vol] 9.1 mg/dL 8.5-10.1 [facility] Work Phone: Serum or plasma creatinine m easurement (mass/volume)on 05-25-2022 Creatinine [Mass/Vol] 0.92 mg/dL 0.70-1.30 [facility] Work Phone: Comment on above: The validity of the calculated GFR & GFRAA in patients over 70 years has not been determined. Clinical correlation is essential. Serum or plasma urea nitroge n measurement (mass/volume)on 05-25-2022 Urea nitrogen [Mass/Vol] 21 mg/dL 7-18 [facility] Work Phone: Thin prep Papanicolaou smear with manual screeningon 05-25-2022 Thin prep Papanicolaou smear with manual screening 24 U/L 15-37 [facility] Work Phone: Thin prep Papanicolaou smear with manual screening 8 5-15 [facility] Work Phone: Whole blood hemoglobin A1c/t otal hemoglobin ratio (mass fraction)on 05-25-2022 HbA1c (Bld) [Mass fraction] 5.3 % 3.8-5.6 [facility] Work Phone: Comment on above: Normal < 5.7 % Predi abetic 5.7 - 6.4 % Diabetic >or= 6.5 % Please note range changes. PROGRESSon 12-28-2018 Protein mass conc HNO ID: [id number] Author: Georgie Hayden Service: ? Author Type: Physical Therapist Type: Progress Notes Filed: 12/28/2018 4:53 PM Note Text: Episode of care has been previously documented in the paper chart. Please refer to the paper chart as necessary. Georgie Hayden PT [facility] Protein mass conc HNO ID: [id number] Author: Georgie Hayden Service: ? Author Type: Physical Therapist Type: Progress Notes Filed: 12/28/2018 4:52 PM Note Text: Episode of care has been previously documented in the paper chart. Please refer to the paper chart as necessary. Georgie Hayden PT [facility] Protein mass conc HNO ID: [id number] Author: Georgie Hayden Service: ? Author Type: Physical Therapist Type: Progress Notes Filed: 12/28/2018 4:51 PM Note Text: Episode of care has been previously documented in the paper chart. Please refer to the paper chart as necessary. Georgie Hayden PT [facility] Protein mass conc HNO ID: [id number] Author: Georgie Hayden Service: ? Author Type: Physical Therapist Type: Progress Notes Filed: 12/28/2018 4:50 PM Note Text: Episode of care has been previously documented in the paper chart. Please refer to the paper chart as necessary. Georgie Hayden PT [facility] Protein mass conc HNO ID: [id number] Author: Georgie Hayden Service: ? Author Type: Physical Therapist Type: Progress Notes Filed: 12/28/2018 4:49 PM Note Text: Episode of care has been previously documented in the paper chart. Please refer to the paper chart as necessary. Georgie Hayden PT [facility] Protein mass conc HNO ID: [id number] Author: Georgie Hayden Service: ? Author Type: Physical Therapist Type: Progress Notes Filed: 12/28/2018 4:48 PM Note Text: Episode of care has been previously documented in the paper chart. Please refer to the paper chart as necessary. Georgie Hayden PT [facility] Protein mass conc HNO ID: [id number] Author: Georgie ThurstonPt) [place] Service: ? Author Type: Physical Therapist Type: Progress Notes Filed: 12/28/2018 4:47 PM Note Text: Episode of care has been previously documented in the paper chart. Please refer to the paper chart as necessary. Georgie Hayden PT [facility] CNTHERAPYon 11-08-2018 CNTHERAPY OT/PT/Speech Visit (PTCLMS) VINAY ARMENDARIZ ([id number]) 1995 Date Time Provider Department 11/08/18 4:45 PM GEORGIE HAYDEN (PT) [facility] Date Time Provider Department Center 11/08/2018 4:45 PM [id number], ANDREW (PT) [facility] Reason for Visit: PT Discharge [752] Reason For Visit History Recorded Visit Diagnoses:Chronic bilateral low back pain without sciatica [M54.5, G89.29] Other closed fracture of first lumbar vertebra with routine healing, subsequent encounter [S32.018D] Allergies As of Date: 11/08/2018 Noted Allergy Reaction ANAPROX (NAPROXEN) 12/24/2005 5 - Intolerance AMOXICILLIN 01/12/2018 4 - Hives Date Reviewed: 08/01/2018 Reviewed by: Julissa (Rn) ANIKA Cuevas - Fully Assessed Prescriptions as of 11/08/2018 Sig: POLYETHYLENE GLYCOL 3350 17 G* Take 1 Packet by mouth once d* SENNOSIDES 8.6 MG-DOCUSATE SO* Take 1 tablet by mouth twice * BUPRENORPHINE 8 MG-NALOXONE 2* Dissolve under the tongue on* Progress Notes: Georgie Hayden PT 12/28/2018 4:53 PM Signed Episode of care has been previously documented in the paper chart. Please refer to the paper chart as necessary. Georgie Hayden PT Normal [facility] CNTHERAPYon 11-06-2018 CNTHERAPY OT/PT/Speech Visit (PTCLMS) VINAY ARMENDARIZ ([id number]) 1995 M Date Time Provider Department 11/06/18 4:45 PM GEORGIE HAYDEN (PT) [facility] Date Time Provider Department Center 11/06/2018 4:45 PM [id number], ANDREW (PT) [facility] Reason for Visit: Physical Therapy [503] Visit Diagnoses:Chronic bilateral low back pain without sciatica [M54.5, G89.29] Other closed fracture of first lumbar vertebra with routine healing, subsequent encounter [S32.018D] Allergies As of Date: 11/06/2018 Noted Allergy Reaction ANAPROX (NAPROXEN) 12/24/2005 5 - Intolerance AMOXICILLIN 01/12/2018 4 - Hives Date Reviewed: 08/01/2018 Reviewed by: Julissa (Rn) ANIKA Cuevas - Fully Assessed Prescriptions as of 11/06/2018 Sig: POLYETHYLENE GLYCOL 3350 17 G* Take 1 Packet by mouth once d* SENNOSIDES 8.6 MG-DOCUSATE SO* Take 1 tablet by mouth twice * BUPRENORPHINE 8 MG-NALOXONE 2* Dissolve under the tongue on* Progress Notes: Georgie Hayden PT 12/28/2018 4:52 PM Signed Episode of care has been previously documented in the paper chart. Please refer to the paper chart as necessary. Georgie Hayden PT Normal [facility] CNTHERAPYon 11-02-2018 CNTHERAPY OT/PT/Speech Visit (PTCLMS) VINAY ARMENDARIZ ([id number]) 1995 M Date Time Provider Department 11/02/18 12:00 PM GEORGIE HAYDEN (PT) [facility] Date Time Provider Department Center 11/02/2018 12:00 PM [id number], ANDREW (PT) [facility] Reason for Visit: Physical Therapy [503] Visit Diagnoses:Chronic bilateral low back pain without sciatica [M54.5, G89.29] Other closed fracture of first lumbar vertebra with routine healing, subsequent encounter [S32.018D] Allergies As of Date: 11/02/2018 Noted Allergy Reaction ANAPROX (NAPROXEN) 12/24/2005 5 - Intolerance AMOXICILLIN 01/12/2018 4 - Hives Date Reviewed: 08/01/2018 Reviewed by: Julissa (Rn) ANIKA Cuevas - Fully Assessed Prescriptions as of 11/02/2018 Sig: POLYETHYLENE GLYCOL 3350 17 G* Take 1 Packet by mouth once d* SENNOSIDES 8.6 MG-DOCUSATE SO* Take 1 tablet by mouth twice * BUPRENORPHINE 8 MG-NALOXONE 2* Dissolve under the tongue on* Progress Notes: Georgie Hayden PT 12/28/2018 4:51 PM Signed Episode of care has been previously documented in the paper chart. Please refer to the paper chart as necessary. Georgie Hayden PT Normal [facility] CNTHERAPYon 10-25-2018 CNTHERAPY OT/PT/Speech Visit (PTCLMS) VINAY ARMENDARIZ ([id number]) 1995 M Date Time Provider Department 10/25/18 4:45 PM GEORGIE HAYDEN (PT) [facility] Date Time Provider Department Center 10/25/2018 4:45 PM [id number], ANDREW (PT) PTCLMS [facility] Reason for Visit: Physical Therapy [503] Visit Diagnoses:Chronic bilateral low back pain without sciatica [M54.5, G89.29] Other closed fracture of first lumbar vertebra with routine healing, subsequent encounter [S32.018D] Allergies As of Date: 10/25/2018 Noted Allergy Reaction ANAPROX (NAPROXEN) 12/24/2005 5 - Intolerance AMOXICILLIN 01/12/2018 4 - Hives Date Reviewed: 08/01/2018 Reviewed by: Julissa (Rn) ANIKA Cuevas - Fully Assessed Prescriptions as of 10/25/2018 Sig: POLYETHYLENE GLYCOL 3350 17 G* Take 1 Packet by mouth once d* SENNOSIDES 8.6 MG-DOCUSATE SO* Take 1 tablet by mouth twice * BUPRENORPHINE 8 MG-NALOXONE 2* Dissolve under the tongue on* Progress Notes: Georgie Hayden PT 12/28/2018 4:50 PM Signed Episode of care has been previously documented in the paper chart. Please refer to the paper chart as necessary. Georgie Hayden PT Normal [facility] CNTHERAPYon 10-17-2018 CNTHERAPY OT/PT/Speech Visit (PTCLMS) VINAY ARMENDARIZ ([id number]) 1995 M Date Time Provider Department 10/17/18 4:45 PM GEORGIE HAYDEN (PT) [facility] Date Time Provider Department Center 10/17/2018 4:45 PM [id number], ANDREW (PT) PTCLMS [facility] Reason for Visit: Physical Therapy [503] Visit Diagnoses:Chronic bilateral low back pain without sciatica [M54.5, G89.29] Other closed fracture of first lumbar vertebra with routine healing, subsequent encounter [S32.018D] Allergies As of Date: 10/17/2018 Noted Allergy Reaction ANAPROX (NAPROXEN) 12/24/2005 5 - Intolerance AMOXICILLIN 01/12/2018 4 - Hives Date Reviewed: 08/01/2018 Reviewed by: Julissa TuhrstonRn) ANIKA Cuevas - Fully Assessed Prescriptions as of 10/17/2018 Sig: POLYETHYLENE GLYCOL 3350 17 G* Take 1 Packet by mouth once d* SENNOSIDES 8.6 MG-DOCUSATE SO* Take 1 tablet by mouth twice * BUPRENORPHINE 8 MG-NALOXONE 2* Dissolve under the tongue on* Progress Notes: Georgie Hayden PT 12/28/2018 4:49 PM Signed Episode of care has been previously documented in the paper chart. Please refer to the paper chart as necessary. Georgie Hayden PT Normal [facility] CNTHERAPYon 10-10-2018 CNTHERAPY OT/PT/Speech Visit (PTCLMS) VINAY ARMENDARIZ ([id number]) 1995 M Date Time Provider Department 10/10/18 4:45 PM GEORGIE HAYDEN (PT) [facility] Date Time Provider Department Center 10/10/2018 4:45 PM [id number], [facility]W ([facility] Reason for Visit: Physical Therapy [503] Visit Diagnoses:Chronic bilateral low back pain without sciatica [M54.5, G89.29] Other closed fracture of first lumbar vertebra with routine healing, subsequent encounter [S32.018D] Allergies As of Date: 10/10/2018 Noted Allergy Reaction ANAPROX (NAPROXEN) 12/24/2005 5 - Intolerance AMOXICILLIN 01/12/2018 4 - Hives Date Reviewed: 08/01/2018 Reviewed by: Julissa (Anika) ANIKA Cuevas - Fully Assessed Prescriptions as of 10/10/2018 Sig: POLYETHYLENE GLYCOL 3350 17 G* Take 1 Packet by mouth once d* SENNOSIDES 8.6 MG-DOCUSATE SO* Take 1 tablet by mouth twice * BUPRENORPHINE 8 MG-NALOXONE 2* Dissolve under the tongue on* Progress Notes: Georgie Hayden PT 12/28/2018 4:48 PM Signed Episode of care has been previously documented in the paper chart. Please refer to the paper chart as necessary. Georgie Hayden PT Normal [facility] CNTHERAPYon 10-03-2018 CNTHERAPY OT/PT/Speech Visit (PTCLMS) KALAVINAY Donnelly ([id number]) 1995 M Date Time Provider Department 10/03/18 5:00 PM GEORGIE HAYDEN (PT) PTCLMS Date Time Provider Department Center 10/03/2018 5:00 PM [id number], ANDREW (PT) PTCLMS [facility] Reason for Visit: PT Eval [747] Visit Diagnosis:Chronic bilateral low back pain without sciatica [M54.5, G89.29] Allergies As of Date: 10/03/2018 Noted Allergy Reaction ANAPROX (NAPROXEN) 12/24/2005 5 - Intolerance AMOXICILLIN 01/12/2018 4 - Hives Date Reviewed: 08/01/2018 Reviewed by: Julissa (Rn) ANIKA Cuevas - Fully Assessed Prescriptions as of 10/03/2018 Sig: POLYETHYLENE GLYCOL 3350 17 G* Take 1 Packet by mouth once d* SENNOSIDES 8.6 MG-DOCUSATE SO* Take 1 tablet by mouth twice * BUPRENORPHINE 8 MG-NALOXONE 2* Dissolve under the tongue on* Progress Notes: Georgie Hayden PT 12/28/2018 4:47 PM Signed Episode of care has been previously documented in the paper chart. Please refer to the paper chart as necessary. Georgie Hayden PT Normal [facility] CT LUMBAR SPINE W/O CONTRAST on 09-28-2018 CT LUMBAR SPINE W/O CONTRAST Performed at [facility] APPROVED BY: Tyler Esquivel MD CT LUMBAR SPINE W/O CONTRAST HISTORY: Low back pain; fracture July 2018; evaluate for healing COMPARISON: CT lumbar spine 08/15/2018 and MR 07/28/2018 TECHNIQUE: Spiral, high resolution axial images were obtained from the thoracolumbar junction to the sacrum with sagittal and coronal planar reconstructions. Dose-Length Product (DLP): 856 mGy*cm. CT Dose Reduction Employed: Automated exposure control (AEC) was used. RESULT: CT LUMBAR: Counting reference: Lumbosacral junction. For the purposes of this report, L4-5 is considered the level of the iliac crest. Alignment: Alignment is anatomic. Bone marrow /fracture: There is again noted to be a vertically oriented fracture through the L1 vertebral body. There is approximately 1 cm distraction of the fracture fragments. There is overall moderate loss of vertebral body height. The anterior endplate is displaced anteriorly approximately 1 cm. There is minimal retropulsion of the posterior superior endplate without significant central canal compromise. Overall there has been overall there has been relatively minimal osseous bridging formed at the periphery of the vertebral. No new or additional fracture is seen. The fracture does not extend into the posterior elements. Paraspinal soft tissues: The paraspinal soft tissues planes are maintained. Lower thoracic spine: The visualized lower thoracic bony canal and foramina are patent. T12-L1: Canal and foramina are patent. L1-L2: Canal and foramina are patent. L2-L3: Canal and foramina are patent L3-L4: Canal and foramina are patent L4-L5: Canal and foramina are patent L5-S1: Canal and foramina are patent Sacrum and iliac wings: The visualized sacrum and iliac wings are within normal limits. IMPRESSION: 1. L1 burst fracture as detailed above. Minimal to no significant interval fusion of the fragments. No interval loss of vertebral body height. No new fracture is seen. No significant canal compromise. Normal [employer] DX LUMBOSACRAL SPINE MIN 4 V IEWSon 09-28-2018 DX LUMBOSACRAL SPINE MIN 4 VIEWS Performed at [facility] APPROVED BY: Josh Dale MD EXAM TITLE: LUMBAR SPINE DATE: 09/28/2018 10:20 COMPARISON: Lumbar spine 08/17/2018 CLINICAL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 NAME: Vinay Armendariz DATE: July 28, 2018 TIME: 10:10 AM Pager: [phone] ADDENDUM (07/28/2018, 11:43 AM): Patient's case discussed with Dr. Montgomery on rounds. Patient seen by Dr. Montgomery during rounds. Pain management recs appreciated. Will obtain CBC w/diff and BMP and monitor abdominal exam. Patient agrees to plan of care. Jorge Helton PA-C 07/28/2018 11:45 AM Normal [facility] Vital Signs Date Time Vital Sign Value Performing Clinician Facility 03-15-2025 08:34-0400 Body temperature 97.6 [degF] Dr. Dandy Brink DO Work Phone: [facility] 03-15-2025 08:34-0400 Diastolic blood pressure 72 mm[Hg] Dr. Dandy Brink DO Work Phone: [facility] 03-15-2025 08:34-0400 Heart rate 62 /min Dr. Dandy Brink DO Work Phone: [facility] 03-15-2025 08:34-0400 Respiratory rate 16 /min Dr. Dandy Brink DO Work Phone: [facility] 03-15-2025 08:34-0400 SaO2% (BldA) [Mass fraction] 98 % Dr. Dandy Brink DO Work Phone: [facility] 03-15-2025 08:34-0400 Systolic blood pressure 112 mm[Hg] Dr. Dandy Brink DO Work Phone: [facility] 03-14-2025 00:05-0400 Body height 187.[address] Dandy Brink DO Work Phone: [facility] 03-14-2025 00:05-0400 Body mass index (BMI) [Ratio] 22.6 kg/m2 Dr. Dandy Brink DO Work Phone: [facility] 03-14-2025 00:05-0400 Body weight 79.[address] Dandy Brink DO Work Phone: 2(060)464-[address] [place] [address] 03-13-2025 23:33-0400 Body temperature 98 [degF] Dr. Dandy Brink DO Work Phone: 3(835)292-937[address] [place] [address] 03-13-2025 23:33-0400 Diastolic blood pressure 70 mm[Hg] Dr. Dandy Brink DO Work Phone: 0(083)054-308781 [place] [address] 03-13-2025 23:33-0400 Heart rate 78 /min Dr. Dandy Brink DO Work Phone: 2(891)830-171081 [place] [address] 03-13-2025 23:33-0400 Respiratory rate 18 /min Dr. Dandy Brink DO Work Phone: [facility] 03-13-2025 23:33-0400 SaO2% (BldA) [Mass fraction] 98 % Dr. Dandy Brink DO Work Phone: [facility] 03-13-2025 23:33-0400 Systolic blood pressure 128 mm[Hg] Dr. Dandy Brink DO Work Phone: [facility] 03-13-2025 21:17-0400 Body height 187.[address] Dandy Brink DO Work Phone: [facility] 03-13-2025 21:17-0400 Body mass index (BMI) [Ratio] 22.8 kg/m2 Dr. Dandy Brink DO Work Phone: 7(009)852-162581 [place] [address] 03-13-2025 21:17-0400 Body weight 80.[address] Dandy Brink DO Work Phone: [facility] 06-16-2024 14:58-0400 Body mass index (BMI) [Ratio] 21.65 kg/m2 [facility] [employer]IGH [employer]CHO[employer] COMPUTER SCIENCE TEACHER Work Phone: [facility] 06-16-2024 14:58-0400 Body temperature 97.2 [degF] [facility] [employer] MANAGER.HIGH [employer]CHOOL COMPUTER SCIENCE TEACHER Work Phone: [facility] 06-16-2024 14:58-0400 Body weight 76.5 kg [facility] [employer] MANAGER.HIGH [employer]CHOOL COMPUTER SCIENCE TEACHER Work Phone: [facility] 06-16-2024 14:58-0400 Diastolic blood pressure 68 mm[Hg] [facility] [employer] MANAGER.HIGH SCHOOL COMPUTER SCIENCE TEACHER Work Phone: [facility] 06-16-2024 14:58-0400 Heart rate 78 /min Abdullah[facility] [employer] MANAGER.HIGH SCHOOL COMPUTER SCIENCE TEACHER Work Phone: [facility] 06-16-2024 14:58-0400 Respiratory rate 16 /min [facility] [employer] MANAGER.HIGH SCHOOL COMPUTER SCIENCE TEACHER Work Phone: [facility] 06-16-2024 14:58-0400 SaO2% (BldA) [Mass fraction] 98 % [facility] [employer] MANAGER.HIGH SCHOOL COMPUTER SCIENCE TEACHER Work Phone: [facility] 06-16-2024 14:58-0400 Systolic blood pressure 118 mm[Hg] Abdullahi [facility] [employer] MANAGER.HIGH [employer]CHOOL COMPUTER SCIENCE TEACHER Work Phone: [facility] 06-05-2022 16:36-0400 Body temperature 98.42 [degF] LATRELL CHILDERS MD [facility] 06-05-2022 16:36-0400 Diastolic blood pressure 67 mm[Hg] LATRELL CHILDERS MD [facility] 06-05-2022 16:36-0400 Heart rate 65 /min LATRELL CHILDERS MD [facility] 06-05-2022 16:36-0400 Respiratory rate 18 /min LATRELL CHILDERS MD [facility] 06-05-2022 16:36-0400 Systolic blood pressure 133 mm[Hg] LATRELL CHILDERS MD [facility] 05-25-2022 14:02-0400 Body height 186.69 cm [facility] Work Phone: Encounters Encounter Date Encounter Type Care Provider Facility Start: 03-15-2025 Non-patient / Non-visit Dr. Mary Goddard MD -[facility] Work Phone: Start: 03-14-2025 Non-patient / Non-visit Dr. Mary Goddard MD -[facility] Work Phone: Start: 03-13-2025 ambulatory [facility] Facility:[facility] [place] Start: 03-13-2025 End: 03-15-2025 Evaluation and management of inpatient Dr. Arnaud Ritchie DO -[facility] Work Phone: Start: 03-13-2025 End: 03-13-2025 Emergency department patient visit CLAYTON MOSS MD [facility] Start: 06-16-2024 End: 06-17-2024 ambulatory Facility:[facility] Start: 06-16-2024 End: 06-16-2024 Office outpatient new 20 minutes Abdullahi Merino APRN.CNP Work Phone: [facility] Comment on above: Lower resp. tract in fection (Primary Dx) Start: 06-05-2022 End: 06-05-2022 Emergency department patient visit LATRELL CHILDERS MD Facility:[facility] Start: 06-05-2022 End: 06-05-2022 Emergency department patient visit LATRELL CHILDERS MD [facility] Start: 05-25-2022 End: 05-25-2022 ambulatory [facility] Work Phone: Start: 05-25-2022 End: 05-25-2022 Patient encounter procedure [facility]Adrian Song Start: 11-08-2018 End: 11-09-2018 Patient encounter procedure GEORGIE (PT) TREM Facility:[facility] Start: 11-06-2018 End: 11-07-2018 Patient encounter procedure GEORGIE (PT) TREM Facility:[facility] Start: 11-02-2018 End: 11-03-2018 Patient encounter procedure IVELISSE SILVESTRE Facility:[facility] Start: 10-25-2018 End: 10-26-2018 Patient encounter procedure GEORGIE (PT) TREM Facility:[facility] Start: 10-17-2018 End: 10-18-2018 Patient encounter procedure GEORGIE (PT) TREM Facility:[facility] Start: 10-10-2018 End: 10-11-2018 Patient encounter procedure GEORGIE (PT) TREM Facility:[facility] Start: 10-03-2018 End: 10-04-2018 Patient encounter procedure GEORGIE (PT) TREM Facility:[facility] Start: 09-28-2018 End: 09-29-2018 Patient encounter procedure Quinten Isaak. Corrineyat Facility:[facility] Start: 08-24-2018 Patient encounter procedure Quinten F. Khayyat Facility:[facility] Start: 08-17-2018 End: 08-18-2018 Patient encounter procedure Quinten F. Khayyat Facility:[facility] Start: 08-15-2018 End: 08-16-2018 Patient encounter procedure Quinten F. Khayyat Facility:[facility] Start: 07-28-2018 End: 08-01-2018 Evaluation and management of inpatient CLAYTON HOGUE Facility:[facility] Procedures Date Procedure Procedure Detail Performing Clinician Start: 03-14-[address] Dandy Brink DO Work Phone: Start: 03-14-2025 Serum inorganic phos phate measurement Dr. Dandy Brink DO Work Phone: Start: 03-13-2025 Hepatitis A virus antibody, IgM type Dr. Dandy Brink DO Work Phone: Comment on above: A negative anti-HAV IgM result suggests no recent orcurrent HAV infection. Start: 03-13-2025 Hepatitis B core ant ibody measurement, IgM type Dr. Dandy Brink DO Work Phone: Start: 03-13-2025 Hepatitis C antibody measurement Dr. Dandy Brink DO Work Phone: Start: 03-13-[address] Dandy Brink DO Work Phone: Start: 03-13-2025 Methadone measuremen t, urine Dr. Dandy Brink DO Work Phone: None (qualifier value) LATRELL CHILDERS MD Plan of Treatment Date Care Activity Detail Author Start: 03-15-2025 Patient discharge [facility] Start: 03-14-2025 [facility] Start: 03-14-2025 Following clinical pathway protocol [facility] Start: 03-14-2025 Ambulation without limitation [facility] Start: 03-14-2025 Assessment of risk of venous thromboembolism [facility] Start: 03-14-2025 Insertion of catheter into peripheral vein [facility] Start: 03-14-2025 Oxygen therapy [facility] Start: 03-14-2025 Providing care according to standard [facility] Start: 03-14-2025 Referral to service [facility] Start: 03-14-2025 [facility] Start: 03-14-2025 Consultation [facility] Start: 03-13-2025 Hospital admission, emergency, from emergency room, medical nature [facility] Start: 03-13-2025 Verification routine [facility] Start: 03-13-2025 Admission procedure [facility] Start: 05-06-2024 Covid-19 Vaccine () Covid-19 Vaccine () [facility] Start: 05-06-2024 Influenza [facility] Start: 02-24-2016 Urine microalbumin profile DTaP,Tdap,Td Vaccine (7 - Td or Tdap) [facility] Start: 09-12-2013 HPV Vaccine (3 - Male 3-dose series) HPV Vaccine (3 - Male 3-dose series) [facility] Start: 2013 Anxiety Screening Anxiety Screening [facility] Start: 2013 Hepatitis C screening Hepatitis C Screening [facility] Start: 2013 HIV screening HIV Screening [facility] Start: 2001 Pneumococcal vaccination Pneumococcal Vaccine (1 of 2 - PCV) [facility] Hepatitis A virus Ig M Ab [Presence] in Serum [facility] Hepatitis B core ant ibody measurement, IgM type [facility] Hepatitis B surface antigen measurement [facility] Hepatitis C antibody measurement [facility] Immunizations Immunization Date Immunization Notes Care Provider Gallito chris 07-23-2014 influenza virus vaccine, unspecified formulation Abdullahi Merino [employer] MANAGER.H[employer]CHO[employer] COMPUTER SCIENCE TEACHER Work Phone: [facility] 04-24-2013 human papilloma viru s vaccine, quadrivalent Abdullahi [facility] [employer] MANAGER.HIGH SCHOOL COMPUTER SCIENCE TEACHER Work Phone: [facility] 03-12-2013 human papilloma viru s vaccine, quadrivalent Abdullahi [facility]le[facility] [employer] MANAGER.HIGH SCHOOL COMPUTER SCIENCE TEACHER Work Phone: [facility] 03-12-2013 Meningococcal, MCV4, unspecified conjugate formulation(groups A, C, Y and W-135) Abdullahi Merino [employer] MANAGER.HIGH SCHOOL COMPUTER SCIENCE TEACHER Work Phone: [facility] 03-12-2013 varicella virus vaccine Abdullahi Pendlemellisa [employer] MANAGER.HIGH SCHOOL COMPUTER SCIENCE TEACHER Work Phone: [facility] 08-09-2011 influenza virus vaccine, unspecified formulation Abdullahi P[facility]le[facility] [employer] MANAGER.HIGH SCHOOL COMPUTER SCIENCE TEACHER Work Phone: [facility] 07-03-2009 influenza virus vaccine, unspecified formulation Abdullahi [facility] [employer] MANAGER.HIGH SCHOOL COMPUTER SCIENCE TEACHER Work Phone: [facility] Work Phone: 03-15-2007 hepatitis A vaccine, unspecified formulation Abdullahi [facility] [employer] MANAGER.HIGH SCHOOL COMPUTER SCIENCE TEACHER Work Phone: [facility] 03-15-2007 Meningococcal, MCV4, unspecified conjugate formulation(groups A, C, Y and W-135) Abdullahi Merino [employer] MANAGER.HIGH SCHOOL COMPUTER SCIENCE TEACHER Work Phone: [facility] 02-23-2006 tetanus toxoid, reduced diphtheria toxoid, and acellular pertussis vaccine, adsorbed Abdullahi Merino [employer] MANAGER.HIGH SCHOOL COMPUTER SCIENCE TEACHER Work Phone: [facility] 04-18-2000 diphtheria, tetanus toxoids and acellular pertussis vaccine Abdullahi Merino [employer] MANAGER.HIGH SCHOOL COMPUTER SCIENCE TEACHER Work Phone: [facility] 04-18-2000 measles, mumps and rubella virus vaccine Abdullah[facility] [employer] MANAGER.HIGH SCHOOL COMPUTER SCIENCE TEACHER Work Phone: [facility] 04-18-2000 poliovirus vaccine, inactivated Abdullahi Merino [employer] MANAGER.HIGH SCHOOL COMPUTER SCIENCE TEACHER Work Phone: [facility] 02-14-2000 chicken pox (disease) Link Merino [employer] MANAGER.HIGH SCHOOL COMPUTER SCIENCE TEACHER Work Phone: [facility] Work Phone: 08-16-1996 DTaP-Haemophilus influenzae type b conjugate vaccine Abdullahi Merino [employer] MANAGER.[employer]CHO[employer] COMPUTER SCIENCE TEACHER Work Phone: [facility] 08-16-1996 haemophilus influenz ae type b vaccine, HbOC conjugate Abdullahi Jordanmellisa [employer] MANAGER.HIGH SCHOOL COMPUTER SCIENCE TEACHER Work Phone: [facility] 03-29-1996 measles, mumps and rubella virus vaccine Abdullahi Merino [employer] MANAGER.HIGH SCHOOL COMPUTER SCIENCE TEACHER Work Phone: [facility] 1995 hepatitis B vaccine, pediatric or pediatric/adolescent dosage Abdullahi Merino [employer] MANAGER.HIGH SCHOOL COMPUTER SCIENCE TEACHER Work Phone: [facility] 1995 DTaP-Haemophilus influenzae type b conjugate vaccine Abdullahi Merino FLOWER SH[employer] MANAGER.HIGH SCHOOL COMPUTER SCIENCE TEACHER Work Phone: [facility] 1995 haemophilus influenz ae type b vaccine, HbOC conjugate Abdullahi Jordanmellisa FLOWER [employer] MANAGER.HIGH SCHOOL COMPUTER SCIENCE TEACHER Work Phone: [facility] 1995 trivalent poliovirus vaccine, live, oral Abdullahi Pendlebury [employer] MANAGER.HIGH SCHOOL COMPUTER SCIENCE TEACHER Work Phone: [facility] 1995 DTaP-Haemophilus influenzae type b conjugate vaccine Abdullahi Pendlebury FLOWER [employer] MANAGER.HIGH SCHOOL COMPUTER SCIENCE TEACHER Work Phone: [facility] 1995 haemophilus influenz ae type b vaccine, HbOC conjugate Abdullahi Pendlebury [employer]OWER [employer] MANAGER.HIGH SCHOOL COMPUTER SCIENCE TEACHER Work Phone: [facility] 1995 hepatitis B vaccine, pediatric or pediatric/adolescent dosage Abdullahi Pendlebury FLOWER SHOP MANAGER.HIGH SCHOOL COMPUTER SCIENCE TEACHER Work Phone: [facility] 1995 trivalent poliovirus vaccine, live, oral Abdullahi Pendlebury FLOWER SH[employer] MANAGER.HIGH SCHOOL COMPUTER SCIENCE TEACHER Work Phone: [facility] 1995 DTaP-Haemophilus influenzae type b conjugate vaccine Abdullahi Pendlebury FLOWER SH[employer] MANAGER.HIGH SCHOOL COMPUTER SCIENCE TEACHER Work Phone: [facility] Work Phone: 1995 haemophilus influenz ae type b vaccine, HbOC conjugate Abdullahi Pendlebury FLOWER SH[employer] MANAGER.HIGH SCHOOL COMPUTER SCIENCE TEACHER Work Phone: [facility] 1995 hepatitis B vaccine, pediatric or pediatric/adolescent dosage Abdullahi Pendlebury FLOWER [employer] MANAGER.HIGH SCHOOL COMPUTER SCIENCE TEACHER Work Phone: [facility] 1995 trivalent poliovirus vaccine, live, oral Abdullahi Pendlebury FLOWER [employer] MANAGER.HIGH SCHOOL COMPUTER SCIENCE TEACHER Work Phone: [facility] Work Phone: 1995 influenza virus vaccine, whole virus Abdullahi Pendlebury FLOWER SH[employer] MANAGER.HIGH SCHOOL COMPUTER SCIENCE TEACHER Work Phone: [facility] 1995 hepatitis A vaccine, unspecified formulation Abdullahi Pendlebury [employer]OWER [employer] MANAGER.HIGH SCHOOL COMPUTER SCIENCE TEACHER Work Phone: [facility] Payers Date Payer Category Payer Self-pay [id number] 2022 Unknown [id number] 1995 Unknown [id number] 2.16.8 [id number] 1995 Unknown [id number] 2.16.8 40.1.406650.3.579.2.278 1995 Unknown [id number] 2.16.8 40.1.205327.3.579.2.278 1995 Unknown [id number] 2.16.8 40.1.718017.3.579.2.278 1995 Unknown [id number] 2.16.8 40.1.168801.3.579.2.278 1995 Unknown [id number] 2.16.8 40.1.112298.3.579.2.278 1995 Unknown [id number] 2.16.8 40.1.785351.3.579.2.278 1995 Unknown [id number] 2.16.8 40.1.564571.3.579.2.278 1995 Unknown [id number] 2.16.8 40.1.545716.3.579.2.278 1995 Unknown [id number] 2.16.8 40.1.561530.3.579.2.278 1995 Unknown [id number] 2.16.8 40.1.532304.3.579.2.278 1995 Unknown [id number] 2.16.8 40.1.725251.3.579.2.278 1995 Unknown [id number] 2.16.8 40.1.984921.3.579.2.278 1995 Unknown [id number] 2.16.8 40.1.473518.3.579.2.278 1995 Unknown [id number] 2.16.8 40.1.517117.3.579.2.627 1995 Unknown [id number] 2.16. 840.1.363766.3.579.2.627 Unknown [id number] Unknown [id number] Unknown [id number] Unknown [id number] Unknown [id number] Unknown [id number] 2.16.8 40.1.717175.3.579.2.462 Unknown [id number] 2.16.8 40.1.069454.3.579.2.462 Unknown [id number] 2.16.8 40.1.366218.3.579.2.462 Unknown [id number] 2.16.8 40.1.877327.3.579.2.462 Social History Date Type Detail Facility Start: 07-27-2018 Tobacco smoking stat us CAIS Unknown if ever smoked [facility] Work Phone: Start: 08-11-2014 None [facility] Start: 08-11-2014 None;- [facility] Start: 08-11-2014 Spouse/ Signif icant Other [facility] Start: 04-05-2015 Cigarettes [facility] Start: 1995 Sex Assigned At Male A [facility] Tobacco smoking status [facility] Start: 06-16-2024 End: 03-14-2025 Tobacco smoking status NHIS Smokes tobacco daily [facility] Start: 06-16-2024 Tobacco use and exposure Smokeless tobacco non-user [facility] Start: 06-16-2024 Alcoholic beverage intake Current non-drinker of alcohol (finding) [facility] Start: 08-12-2020 End: 06-16-2024 History of Social function [facility] Start: 08-12-2020 End: 06-16-2024 Tobacco use panel [facility] PHQ2 Score 0 [facility] Start: 1995 Sex assigned at Not on file C [facility] Tobacco Nicotine Use: Va ping Product in Last 90 Days. [facility] Start: 06-05-2022 Sex Male (finding) [facility] Goals Date Patient Goal Desired Activity /State Functional Status Date Assessment Result Facility 03-15-2025 Functional [facility] Work Phone: 06-05-2022 Functional Status Independent [facility] Mental Status Date Assessment Result Facility 03-15-2025 Cognitive function Voice/Name Sean Rasha[facility] Work Phone: 06-05-2022 Mental Status Orientation Oriented x 4 [facility] Clinical Notes 06-05-2022 to 03-15-2025 Note Date & Type Note Facility 03-15-2025 Note [facility] Medical Records Department [address] [place] [address] Discharge Summary 03/15/25 1800 MR#: [id number] Acct: [id number] Name: VINAY ARMENDARIZ Rep #: [id number] : 1995 30 From: Mary Goddard MD PCP: Care Physician,No Primary Status:DIS IN Location: [facility] [id number] Providers Date of Admission: 03/13/25 Date of Discharge: 03/15/25 Primary Care Physician: No Primary Care Phys Reason For Visit: ALCOHOL DETOX Diagnosis Discharge Diagnosis (1) Alcohol abuse: Status: Acute Code(s): F10.10 - Alcohol abuse, uncomplicated (2) Desire for detoxification: Status: Acute Plan: DISCHARGE DIAGNOSES: #1. Acute EtOH intoxication with abuse with impending withdrawal with mild transaminitis with likely chronic alcoholic hepatitis (left 03/15/25 AMA) #2. Former opiate abuse on chronic Suboxone therapy. #3. Tobacco Abuse #4. Constipation, acute Plan The patient is a 30 y/o M w/ PMHx: EtOH abuse, Former Opiate Abuse on chronic suboxone therapy, Tobacco use (heavy vaping) who presented to the [facility] ED on 03/13/25 with request for alcohol detoxification. Admitted to medical surgical floor, routine labs obtained in the ED, given interest in sobriety patient initiated and continued on tapering course of phenobarbital, as needed gabapentin, Catapres, Bentyl, Vistaril, IV fluids, IV antiemetics, Tylenol as needed for pain. Case management consulted for assistance for transition to next level of rehabilitation care. Mag, phos levels normal. Maintain on CIWA protocol concurrently. Hepatitis panel noted to be negative. 03/15/25 despite recommendations patient left AMA. Medications at Discharge Home Medications buprenorphine 8 mg-naloxone 2 mg sublingual tablet 1 tab sublingual BID drug detox 03/14/25 Weight / BMI Weight Weight: 175 lb 14.862 oz Body Mass Index (BMI) 22.6 ABG / Lab / Microbiology Data 03/14/25 05:18 03/14/25 05:18 Laboratory: Laboratory Results - last 24 hr 03/13/25 22:57: Hepatitis A IgM Ab Negative, Hep Bs Antigen Negative, Hep B Core IgM Ab Negative, Hepatitis C Ab (EIA) Non Reactive, Hep C Ab Comment Comment D/C Instructions DC O2, CPAP, BIPAP Needs Home O2 Discharge instructions: No Meaningful Use Info Meaningful Use Meaningful Use Diagnoses (Choose all that apply): None applicable Discharge Plan Admission Admit Date/Time: 03/13/25 22:47 Primary Reason for Your Visit: Acute EtOH abuse detoxification Attending Provider: Mary Goddard Primary Care Provider: Care Physician,Arielle Primary Consulting Providers: Arnaud Ritchie Discharge Orders/Prescriptions Prescriptions: No Action buprenorphine-naloxone 8-2 mg tablet, sublingual 1 tab sublingual BID Referrals / Follow Up: Care Physician,No Primary [Primary Care Provider] - Disposition Disposition (needs filled in before D/C Order can be placed): Home, Self Care 03/16/25 0650 Cosigner Signature (if applicable): CC: Dr. Mary Goddard MD; No Primary Care Physician Signed [facility] 03-15-2025 Progress note Note Date/Time March 15, 2025 11:23am [facility] Medical Records Department [address] [place] [address] Progress Note - Hospitalist 03/15/25 0659 MR#: [id number] Acct: [id number] Name: ARMENDARIZVINAY Cony Rep #:[id number] : 1995 30 From: Mary Goddard MD PCP: Samara Physician,No Primary Status :ADM IN Location: [place] [address] Reason for Visit Reason for Visit: Diagnoses Alcohol abuse, uncomplicated (03/13/25) Subjective Subjective Patient with no acute events overnight per self and per nursing report. He notes yesterday with bowel regimen he did have a bowel movement and feels better. He did state he slept less well but this was because of noise in the hospital. Encouraged him discussed with staff and requests earplugs if necessary. He does note that withdrawal symptoms currently completely abated. Patient denies fevers, chills, nausea, emesis, abdominal pain, chest pain or dyspnea. Objective Data Objective Data Vital Signs: Vital Signs Temp Pulse Resp BP Pulse Ox O2 Del Method 97.8 F 69 16 119/53 L 99 Room Air 03/14/25 20:45 03/14/25 20:45 03/14/25 20:45 03/14/25 20:45 03/14/25 20:45 03/14/25 20:45 Oxygen Delivery Method Room Air Weight: 175 lb 14.862 oz Body Mass Index (BMI) 22.6 Intake & Output: Intake and Output for Last 24 Hours 03/13/25 03/14/25 03/15/25 23:59 23:59 23:59 Intake Total 1000 / 1000 1360 / 1360 Balance 1000 / 1000 1360 / 1360 Lab / Micro Data 03/14/25 05:18 03/14/25 05:18 Labs: Laboratory Results - last 24 hr 03/14/25 05:18: Phosphorus 3.9, Magnesium 1.7 Physical Exam Narrative Physical Examination: General: Awake, alert, oriented x 3 and cooperative, laying in the MedSurg bed, notes feeling well aside from sleeping poorly from sound in the hospital, deniesany withdrawal symptoms. Skin: Normal color, normal turgor, no icterus, no cyanosis except occasional stage ecchymoses, abrasion, tattoos. HEENT: AT/NC, EOMI, PERRLA, MMM. Lungs: CTA bilaterally, moderate effort, mild decrease BL bases, no rales, ronchi or wheezing. Heart: Regular rate and rhythm; no gallop, rub audible. Abdomen: Soft, NTTP, ND, mildly hyperactive BS. Extremities: No cyanosis, clubbing, or edema. Neurological: Patient awake, alert, oriented as noted, cognitive function intact; pupils equally reactive to light and accommodation, cranial nerves grossly normal, moving all 4 extremities, no focal deficits, strength improved, preserved, notes abated completely withdrawal symptoms. Psychiatric: Affect appears fatigued but noted because of someone loud in another room, normal otherwise, no acute evidence of depressive or anxiety feelings. Assessment & Plan Assessment/Plan (1) Alcohol abuse: (2) Desire for detoxification: PLAN: Plan The patient is a 30 y/o M w/ PMHx: EtOH abuse, Former Opiate Abuse on chronic suboxone therapy, Tobacco use (heavy vaping) who presents to the [facility] ED on 03/13/25 with request for alcohol detoxification. #1. Acute EtOH intoxication with abuse with impending withdrawal with mild transaminitis with likely chronic alcoholic hepatitis: Admitted to medical surgical floor, routine labs obtained in the ED, given interest in sobriety patient initiated and continued on tapering course of phenobarbital, as needed gabapentin, Catapres, Bentyl, Vistaril, IV fluids, IV antiemetics, Tylenol as needed for pain. Case management consulted for assistance for transition to next level of rehabilitation care. Mag, phos levels normal. Maintain on CIWA protocol concurrently. Hepatitis panel noted to be negative. #2. Former opiate abuse: Patient's clean x 8 years, encouraged ongoing aggressive outpatient support program and continued Suboxone therapy. #3. Tobacco Abuse: Encouraged cessation, inpatient consultation per RT, continue with nicotine patch and given significant vaping history 03/14/2025 initiated also on nicotine gum for breakthrough nicotine craving. #4. Constipation, acute: 03/14/2025 with constipation initiated MiraLAX, successful, will have him continue if needed, will hold for loose stools. Continue to encourage high-fiber intake. #5. DVT prophylaxis: Low risk for type presentation, encourage ambulation. Charges/Coding Visit Charges Inpatient E&M: 84693 Subs Hosp L2 03/15/25 1123 <Electronically signed by Mary Goddard MD> Cosigner Signature (if applicable): CC: ~ Signed [facility] Work Phone: 1(718) 227-823707-11-2025 Progress note [facility] Medical Records Department [address] [place] [address] Progress Note - Hospitalist 03/15/25 0659 MR#: [id number] Acct: [id number] Name: VINAY ARMENDARIZ Rep #:[id number] : 1995 30 From: Mary Goddard MD PCP: Care Physician,No Primary Status :ADM IN Location: MS[facility] NS363-2 Reason for Visit Reason for Visit: Diagnoses Alcohol abuse, uncomplicated (03/13/25) Subjective Subjective Patient with no acute events overnight per self and per nursing report. He notes yesterday with bowel regimen he did have a bowel movement and feels better. He did state he slept less well but this was because of noise in the hospital. Encouraged him discussed with staff and requests earplugs if necessary. He does note that withdrawal symptoms currently completely abated. Patient denies fevers, chills, nausea, emesis, abdominal pain, chest pain or dyspnea. Objective Data Objective Data Vital Signs: Vital Signs Temp Pulse Resp BP Pulse Ox O2 Del Method 97.8 F 69 16 119/53 L 99 Room Air 03/14/25 20:45 03/14/25 20:45 03/14/25 20:45 03/14/25 20:45 03/14/25 20:45 03/14/25 20:45 Oxygen Delivery Method Room Air Weight: 175 lb 14.862 oz Body Mass Index (BMI) 22.6 Intake & Output: Intake and Output for Last 24 Hours 03/13/25 03/14/25 03/15/25 23:59 23:59 23:59 Intake Total 1000 / 1000 1360 / 1360 Balance 1000 / 1000 1360 / 1360 Lab / Micro Data 03/14/25 05:18 03/14/25 05:18 Labs: Laboratory Results - last 24 hr 03/14/25 05:18: Phosphorus 3.9, Magnesium 1.7 Physical Exam Narrative Physical Examination: General: Awake, alert, oriented x 3 and cooperative, laying in the MedSurg bed, notes feeling well aside from sleeping poorly from sound in the hospital, deniesany withdrawal symptoms. Skin: Normal color, normal turgor, no icterus, no cyanosis except occasional stage ecchymoses, abrasion, tattoos. HEENT: AT/NC, EOMI, PERRLA, MMM. Lungs: CTA bilaterally, moderate effort, mild decrease BL bases, no rales, ronchi or wheezing. Heart: Regular rate and rhythm; no gallop, rub audible. Abdomen: Soft, NTTP, ND, mildly hyperactive BS. Extremities: No cyanosis, clubbing, or edema. Neurological: Patient awake, alert, oriented as noted, cognitive function intact; pupils equally reactive to light and accommodation, cranial nerves grossly normal, moving all 4 extremities, no focaldeficits, strength improved, preserved, notes abated completely withdrawal symptoms. Psychiatric: Affect appears fatigued but noted because of someone loud in another room, normal otherwise, no acute evidence of depressive or anxiety feelings. Assessment & Plan Assessment/Plan (1) Alcohol abuse: (2) Desire for detoxification: PLAN: Plan The patient is a 30 y/o M w/ PMHx: EtOH abuse, Former Opiate Abuse on chronic suboxone therapy, Tobacco use (heavy vaping) who presents to the [facility] ED on 03/13/25 with request for alcohol detoxification. #1. Acute EtOH intoxication with abuse with impending withdrawal with mild transaminitis with likely chronic alcoholic hepatitis: Admitted to medical surgical floor, routine labs obtained in the ED, given interest in sobriety patient initiated and continued on tapering course of phenobarbital, as needed gabapentin, Catapres, Bentyl, Vistaril, IV fluids, IV antiemetics, Tylenol as needed for pain.Case management consulted for assistance for transition to next level of rehabilitation care. Mag, phos levels normal. Maintain on CIWA protocol concurrently. Hepatitis panel noted to be negative. #2. Former opiate abuse: Patient's clean x 8 years, encouraged ongoing aggressive outpatient support program and continued Suboxone therapy. #3. Tobacco Abuse: Encouraged cessation, inpatient consultation per RT, continue with nicotine patch and given significant vaping history 03/14/2025 initiated also on nicotine gum for breakthrough nicotine craving. #4. Constipation, acute: 03/14/2025 with constipation initiated MiraLAX, successful, will have him continue if needed, will hold for loose stools. Continue to encourage high-fiber intake. #5. DVT prophylaxis: Low risk for type presentation, encourage ambulation. Charges/Coding Visit Charges Inpatient E&M: 43597 Subs Hosp L2 03/15/25 1123 Cosigner Signature (if applicable): CC: ~ Signed [facility]07-10-2025 Progress note Author Mary Goddard [facility] Note Date/Time March 14, 2025 11:4 0am [facility] Medical Records Department [address] [place] [address] Progress Note - Hospitalist 03/14/25 0705 MR#: [id number] Acct: [id number] Name: VINAY ARMENDARIZ Rep #:[id number] : 1995 30 From: Mary Goddard MD PCP: Care Physician,No Primary Status :ADM IN Location: [facility]3 FI705-4 Reason for Visit Reason for Visit: Diagnoses Alcohol abuse, uncomplicated (03/13/25) Subjective Subjective Patient with no acute events overnight per self and per nursing report. He doesnote still mild tremulousness but significantly improved from day prior. He is requesting additional nicotine breakthrough supplementation as he notes he vapesexcessively. Patient also noting mild constipation and requesting MiraLAX. Patient denies fevers, chills, nausea, emesis, abdominal pain, chest pain or dyspnea. Objective Data Objective Data Vital Signs: Vital Signs Temp Pulse Resp BP Pulse Ox O2 Del Method 98 F 65 16 109/54 L 98 Room Air 03/14/25 04:40 03/14/25 04:40 03/14/25 04:40 03/14/25 04:40 03/14/25 04:40 03/14/25 04:40 Oxygen Delivery Method Room Air Weight: 175 lb 14.862 oz Body Mass Index (BMI) 22.6 Intake & Output: Intake and Output for Last 24 Hours 03/12/25 03/13/25 03/14/25 23:59 23:59 23:59 Intake Total 1000 / 1000 Balance 1000 / 1000 Lab / Micro Data 03/14/25 05:18 03/14/25 05:18 Labs: Laboratory Results - last 24 hr 03/13/25 21:42: WBC 5.3, RBC 5.07, Hgb 16.5, Hct 47.8, MCV 94.3 H, MCH 32.5 H, MCHC 34.5, RDW Std Deviation 42.3, RDW Coeff of Viry 12.2, Plt Count 175, MPV 10.1, Immature Gran % (Auto) 0.400, Neut % (Auto) 69.3, Lymph % (Auto) 23.4, Dewey % (Auto) 5.6, Eos % (Auto) 0.9, Baso % (Auto) 0.4, Absolute Neuts (auto) 3.7, Absolute Lymphs (auto) 1.25, Nucleated RBC % 0, Sodium 140, Potassium 4.3, Chloride 101, Carbon Dioxide 26.8, Anion Gap 12, BUN 10, Creatinine 0.90, Estim Creat Clear Calc 137.37, Est GFR (MDRD) Non-Af 117, BUN/Creatinine Ratio 10.8, Glucose 116 H, Calcium 9.4, Total Bilirubin 0.35, AST 79 H, ALT 48 H, Alkaline Phosphatase 93, Total Protein 7.8, Albumin 4.8, Globulin 3.0, Albumin/Globulin Ratio 1.6, Urine Opiates Screen NEGATIVE, U Buprenorphine Qual PRESUMPTIVE POSITIVE, Ur Oxycodone Screen NEGATIVE, Urine Methadone Screen NEGATIVE, Urine Fentanyl Screen NEGATIVE, Ur Barbiturates Screen NEGATIVE, Ur Phencyclidine ScrnNEGATIVE, Ur Amphetamines Screen NEGATIVE, U Benzodiazepines Scrn NEGATIVE, Urine Cocaine Screen NEGATIVE, U Cannabinoids Screen PRESUMPTIVE POSITIVE, EthylAlcohol 271.0 H 03/14/25 05:18: WBC 4.2 L, RBC 4.22 L, Hgb 13.7, Hct 39.8 L, MCV 94.3 H, MCH 32.5 H, MCHC 34.4, RDW Std Deviation 42.0, RDW Coeff of Viry 12.1, Plt Count 139 L, MPV 10.0, Sodium 138, Potassium 3.3, Chloride 103, Carbon Dioxide 21.1, AnionGap 15, BUN 10, Creatinine 0.81, Estim Creat Clear Calc 150.51, Est GFR (MDRD) Non-Af 122, BUN/Creatinine Ratio 11.9, Glucose 96, Calcium 9.0 Physical Exam Narrative Physical Examination: General: Awake, alert, oriented x 3 and cooperative, laying in the MedSurg bed, notes mild tremulousness but markedly improved since initial ED presentation. Skin: Normal color, normal turgor, no icterus, no cyanosis except occasional stage ecchymoses, abrasion, tattoos. HEENT: AT/NC, EOMI, PERRLA, MMM. Lungs: CTA bilaterally, moderate effort, mild decrease BL bases, no rales, ronchi or wheezing. Heart: Regular rate and rhythm; no gallop, rub audible. Abdomen: Soft, NTTP, ND, mildly hyperactive BS. Extremities: No cyanosis, clubbing, or edema. Neurological: Patient awake, alert, oriented as noted, cognitive function intact; pupils equally reactive to light and accommodation, cranial nerves grossly normal, moving all 4 extremities, no focal deficits, strength mildly global decreased, very mildly tremulous in the hands but improved, withdrawal symptoms notably abated since initial presentation. Psychiatric: Affect appears mildly fatigued otherwise normal, no acute evidence of depressive or anxiety feelings. Assessment & Plan Assessment/Plan (1) Alcohol abuse: (2) Desire for detoxification: PLAN: Plan The patient is a 30 y/o M w/ PMHx: EtOH abuse, Former Opiate Abuse on chronic suboxone therapy, Tobacco use (heavy vaping) who presents to the [facility] ED on 03/13/25 with request for alcohol detoxification. #1. Acute EtOH intoxication with abuse with impending withdrawal with mild transaminitis with likely chronic alcoholic hepatitis: Admitted to medical surgical floor, routine labs obtained in the ED, given interest in sobriety patient initiated and continued on tapering course of phenobarbital, as needed gabapentin, Catapres, Bentyl, Vistaril, IV fluids, IV antiemetics, Tylenol as needed for pain. Case management consulted for assistance for transition to next level of rehabilitation care. Mag, phos levels obtained and noted to be normal. Maintain on CIWA protocol concurrently. Hepatitis panel pending obtainedon admission. #2. Former opiate abuse: Patient's clean x 8 years, encouraged ongoing aggressive outpatient support program and continued Suboxone therapy. #3. Tobacco Abuse: Encouraged cessation, inpatient consultation per RT, NR if desired. #4. Constipation, acute: Will initiate MiraLAX regimen and hold for loose stools. Encourage high-fiber intake. #5. DVT prophylaxis: Low risk for type presentation, encourage ambulation. Charges/Coding Visit Charges Inpatient E&M: 82394 Subs Hosp L2 03/14/25 1140 <Electronically signed by Mary Goddard MD> Cosigner Signature (if applicable): CC: ~ Signed [facility] Work Phone: 1(205) 554-122907-10-2025 Progress note [facility] Medical Records Department [address] [place], [place] [id number] Progress Note - Hospitalist 03/14/25 0705 MR#: [id number] Acct: [id number] Name: ARMENDARIZVINAY GARCIA Cony Rep #:[id number] : 1995 30 From: Mary Goddard MD PCP: Care Physician,No Primary Status :ADM IN Location: MS3 KX485-1 Reason for Visit Reason for Visit: Diagnoses Alcohol abuse, uncomplicated (03/13/25) Subjective Subjective Patient with no acute events overnight per self and per nursing report. He doesnote still mild tremulousness but significantly improved from day prior. He is requesting additional nicotine breakthrough supplementation as he notes he vapesexcessively. Patient also noting mild constipation and requesting MiraLAX. Patient denies fevers, chills, nausea, emesis, abdominal pain, chest pain or dyspnea. Objective Data Objective Data Vital Signs: Vital Signs Temp Pulse Resp BP Pulse Ox O2 Del Method 98 F 65 16 109/54 L 98 Room Air 03/14/25 04:40 03/14/25 04:40 03/14/25 04:40 03/14/25 04:40 03/14/25 04:40 03/14/25 04:40 Oxygen Delivery Method Room Air Weight: 175 lb 14.862 oz Body Mass Index (BMI) 22.6 Intake & Output: Intake and Output for Last 24 Hours 03/12/25 03/13/25 03/14/25 23:59 23:59 23:59 Intake Total 1000 / 1000 Balance 1000 / 1000 Lab / Micro Data 03/14/25 05:18 03/14/25 05:18 Labs: Laboratory Results - last 24 hr 03/13/25 21:42: WBC 5.3, RBC 5.07, Hgb 16.5, Hct 47.8, MCV 94.3 H, MCH 32.5 H, MCHC 34.5, RDW Std Deviation 42.3, RDW Coeff of Viry 12.2, Plt Count 175, MPV 10.1, Immature Gran % (Auto) 0.400, Neut % (Auto) 69.3, Lymph % (Auto) 23.4, Dewey % (Auto) 5.6, Eos % (Auto) 0.9, Baso % (Auto) 0.4, Absolute Neuts (auto) 3.7, Absolute Lymphs (auto) 1.25, Nucleated RBC % 0, Sodium 140, Potassium 4.3, [id number], Carbon Dioxide 26.8, Anion Gap 12, BUN 10, Creatinine 0.90, Estim Creat Clear Calc 137.37, EstGFR (MDRD) Non-Af 117, BUN/Creatinine Ratio 10.8, Glucose 116 H, Calcium 9.4, Total Bilirubin 0.35,AST 79 H, ALT 48 H, Alkaline Phosphatase 93, Total Protein 7.8, Albumin 4.8, Globulin 3.0, Albumin/Globulin Ratio 1.6, Urine Opiates Screen NEGATIVE, U Buprenorphine Qual PRESUMPTIVE POSITIVE, Ur Oxycodone Screen NEGATIVE, Urine Methadone Screen NEGATIVE, Urine Fentanyl Screen NEGATIVE, Ur Barbiturates Screen NEGATIVE, Ur Phencyclidine ScrnNEGATIVE, Ur Amphetamines Screen NEGATIVE, U Benzodiazepines Scrn NEGATIVE, Urine Cocaine Screen NEGATIVE, U Cannabinoids Screen PRESUMPTIVE POSITIVE, EthylAlcohol 271.0 H 03/14/25 05:18: WBC 4.2 L, RBC 4.22 L, Hgb 13.7, Hct 39.8 L, MCV 94.3 H, MCH 32.5 H, MCHC 34.4, RDWStd Deviation 42.0, RDW Coeff of Viry 12.1, Plt Count 139 L, MPV 10.0, Sodium 138, Potassium 3.3, Chloride 103, Carbon Dioxide 21.1, AnionGap 15, BUN 10, Creatinine 0.81, Estim Creat Clear Calc 150.51, Est GFR (MDRD) Non-Af 122, BUN/Creatinine Ratio 11.9, Glucose 96, Calcium 9.0 Physical Exam Narrative Physical Examination: General: Awake, alert, oriented x 3 and cooperative, laying in the MedSurg bed, notes mild tremulousness but markedly improved since initial ED presentation. Skin: Normal color, normal turgor, no icterus, no cyanosis except occasional stage ecchymoses, abrasion, tattoos. HEENT: AT/NC, EOMI, PERRLA, MMM. Lungs: CTA bilaterally, moderate effort, mild decrease BL bases, no rales, ronchi or wheezing. Heart: Regular rate and rhythm; no gallop, rub audible. Abdomen: Soft, NTTP, ND, mildly hyperactive BS. Extremities: No cyanosis, clubbing, or edema. Neurological: Patient awake, alert, oriented as noted, cognitive function intact; pupils equally reactive to light and accommodation, cranial nerves grossly normal, moving all 4 extremities, no focaldeficits, strength mildly global decreased, very mildly tremulous in the hands but improved, withdrawal symptoms notably abated since initial presentation. Psychiatric: Affect appears mildly fatigued otherwise normal, no acute evidence of depressive or anxiety feelings. Assessment & Plan Assessment/Plan (1) Alcohol abuse: (2) Desire for detoxification: PLAN: Plan The patient is a 30 y/o M w/ PMHx: EtOH abuse, Former Opiate Abuse on chronic suboxone therapy, Tobacco use (heavy vaping) who presents to the [facility] ED on 03/13/25 with request for alcohol detoxification. #1. Acute EtOH intoxication with abuse with impending withdrawal with mild transaminitis with likely chronic alcoholic hepatitis: Admitted to medical surgical floor, routine labs obtained in the ED, given interest in sobriety patient initiated and continued on tapering course of phenobarbital, as needed gabapentin, Catapres, Bentyl, Vistaril, IV fluids, IV antiemetics, Tylenol as needed for pain.Case management consulted for assistance for transition to next level of rehabilitation care. Mag, phos levels obtained and noted to be normal. Maintain on CIWA protocol concurrently. Hepatitis panelpending obtainedon admission. #2. Former opiate abuse: Patient's clean x 8 years, encouraged ongoing aggressive outpatient support program and continued Suboxone therapy. #3. Tobacco Abuse: Encouraged cessation, inpatient consultation per RT, NR if desired. #4. Constipation, acute: Will initiate MiraLAX regimen and hold for loose stools. Encourage high-fiber intake. #5. DVT prophylaxis: Low risk for type presentation, encourage ambulation. Charges/Coding Visit Charges Inpatient E&M: 12729 Subs Hosp L2 03/14/25 1140 Cosigner Signature (if applicable): CC: ~ Signed [facility]07-10-2025 History and physical note Author Arnaud Ritchie [facility] Note Date/Time March 14, 2025 3:17 am [facility] Medical Records Department [address] [place] [address] H&P Exam - Hospitalist 03/13/25 2532 MR#: [id number] Acct: [id number] Name: ARMENDARIZVINAY Cony Rep #:[id number] : 1995 30 From: Arnaud magallanes DO PCP: Care Physician,No Primary Status :ADM IN Location: [facility] [id number] HPI - General General Date of Admission: 03/13/25 Date of Service: 03/13/25 Chief Complaint: Alcohol detox HPI Narrative VINAY ARMENDARIZ, is a 30 M who presented to [facility] ED on 03/13/2025 with desire for alcohol detox. Saw patient at bedside in the ED, significant other present. Patient was mildly anxious appearing but otherwise sitting back comfortably in bed and in no acute distress. Patient has history of opiate abuse but reports being clean for over 8 years and is on Suboxone. Noother significant medical history, takes no other medications at baseline. He reports minimal alcohol use until about 6 months ago. He has now been drinking heavily for the past 3 to 4 months. Has been drinking 1/5 of liquor daily. No prior history of alcohol detox. Alcohol level 271 on admit. Reports feeling anxious but denies any tremors or other withdrawal symptoms currently. Will be admitted for further management. [facility] Medical History Intertrigo Generalized headaches Drug abuse Bone fracture Hidradenitis Home Medications ?Medication ?Instructions ?Recorded ?Last Taken ?Type buprenorphine 8 mg-naloxone 2 mg 1 tab sublingual BID drug detox 03/14/25 03/13/25 08:00 History sublingual tablet Allergy/AdvReac Type Severity Reaction Status Date / Time No Known Allergies Allergy Verified 03/13/25 21:17 Family History Other No pertinent family history Surgical History History of excision of lesion Social History Smoking Status: Current every day smoker tobacco type: e-cigarettes alcohol intake: former substance use type: former substance user ROS Constitutional Constitutional: Denies chills, fatigue, fever(s) or weakness Eyes Eyes: Denies change in vision Cardiovascular Cardiovascular: Denies chest pain Respiratory/Chest Respiratory/Chest: Denies shortness of breath at rest Gastrointestinal Gastrointestinal: Reports nausea; Denies abdominal pain or vomiting Psychiatric Psychiatric: Reports anxiety Vital Signs Vital Signs Vital Signs: 03/13/25 21:17 Temperature 98.6 F Temperature Source Oral Pulse Rate 104 H Respiratory Rate 16 Blood Pressure 126/92 H Blood Pressure Mean 103 Pulse Ox 99 Oxygen Delivery Method Room Air Weight Weight: 80.921 kg Body Mass Index (BMI) 22.8 Physical Exam Const alert, oriented x3, no apparent distress and average body habitus Constitutional Narrative: Pleasant younger male, mildly anxious and flushed appearing, otherwise sitting back comfortably in bed, conversing normally, in no acute distress. General Appearance: cooperative and comfortable HEENT normocephalic, head/scalp atraumatic, hearing grossly normal bilaterally, nasal mucous membranes and turbinates normal and moist oral mucous membranes Eyes PERRL, EOMs intact bilaterally and conjunctivae normal Neck full ROM Chest inspection of chest normal Resp normal respiratory effort, normal air movement, no use of accessory muscles and clear to auscultation bilaterally Cardio regular rate, regular rhythm, no murmurs and peripheral pulses 2+ throughout GI normal to inspection, nondistended, normoactive bowel sounds, soft to palpation,non-tender and non-distended Back/Spine normal ROM Extremity normal to inspection, full ROM and no pedal edema Skin no rashes or lesions noted Psych mental status grossly normal Mood & Affect: anxious Results Lab / Micro Data 03/13/25 21:42 03/13/25 21:42 Labs: Laboratory Results - last 24 hr 03/13/25 21:42: WBC 5.3, RBC 5.07, Hgb 16.5, Hct 47.8, MCV 94.3 H, MCH 32.5 H, MCHC 34.5, RDW Std Deviation 42.3, RDW Coeff of Viry 12.2, Plt Count 175, MPV 10.1, Immature Gran % (Auto) 0.400, Neut % (Auto) 69.3, Lymph % (Auto) 23.4, Dewey % (Auto) 5.6, Eos % (Auto) 0.9, Baso % (Auto) 0.4, Absolute Neuts (auto) 3.7, Absolute Lymphs (auto) 1.25, Nucleated RBC % 0, Sodium 140, Potassium 4.3, Chloride 101, Carbon Dioxide 26.8, Anion Gap 12, BUN 10, Creatinine 0.90, Estim Creat Clear Calc 137.37, Est GFR (MDRD) Non-Af 117, BUN/Creatinine Ratio 10.8, Glucose 116 H, Calcium 9.4, Total Bilirubin 0.35, AST 79 H, ALT 48 H, Alkaline Phosphatase 93, Total Protein 7.8, Albumin 4.8, Globulin 3.0, Albumin/Globulin Ratio 1.6, Urine Opiates Screen NEGATIVE, U Buprenorphine Qual PRESUMPTIVE POSITIVE, Ur Oxycodone Screen NEGATIVE, Urine Methadone Screen NEGATIVE, Urine Fentanyl Screen NEGATIVE, Ur Barbiturates Screen NEGATIVE, Ur Phencyclidine ScrnNEGATIVE, Ur Amphetamines Screen NEGATIVE, U Benzodiazepines Scrn NEGATIVE, Urine Cocaine Screen NEGATIVE, U Cannabinoids Screen PRESUMPTIVE POSITIVE, EthylAlcohol 271.0 H Assessment & Plan Assessment/Plan (1) Alcohol abuse: (2) Desire for detoxification: PLAN: Plan Patient is a 30-year-old male who presented to [facility] ED on 03/13/2025 for alcohol detox. 1. Alcohol abuse with acute intoxication and desire for detox ? Admit under inpatient status to [facility]. Case management consulted. Alcohol level 271 on admit. Reports drinking 1/5 of liquor daily. No prior history of detox. Given patient is high risk for withdrawal, will treat with phenobarbitaltaper and other as needed medications per alcohol withdrawal order set. 2. Tobacco abuse ? Reports heavy vape use on a daily basis. Nicotine patch ordered per patient request. Discussed cessation on discharge. 3. History of opiate abuse ? Has been clean for over 8 years per his report. Continue home Suboxone. 4. History of hidradenitis suppurativa ? Previously followed with Dr. Riggins with [facility] here for this. Patient denies any recent issues with this. No inpatient needs, outpatient follow-up asneeded. DVT prophylaxis: Low risk, ambulate CODE STATUS: Full code, verified Expected disposition: TBD Total clinical time spent by myself addressing the patient's medical issues, reviewing all the data, and collaborating with patient's care team: 55 minutes. Charges/Coding Visit Charges Inpatient E&M: 36343 Init Hosp L2 03/14/25 0317 <Electronically signed by Arnaud Ritchie DO> Cosigner Signature (if applicable): CC: Dr. Arnaud Ritchie DO; No Primary Care Physician~ Signed [facility] Work Phone: [phone]) 161-457707-10-2025 Discharge summary Author Dandy Brink [facility] Note Date/Time March 14, 2025 2:23 am [facility] Medical Records Department [address] [place] [id number] Emergency Department Summary 03/13/25 MR#: [id number] Acct: [id number] Name: VINAY ARMENDARIZ Rep #:[id number] : 1995 30 From: Dandy Brink DO PCP: Care Physician,No Primary Status :ADM IN Location: MS3 [id number] HPI History of Present Illness Chief Complaint: ETOH Intox Informant: patient and spouse/S.O. Narrative Narrative: Patient is a 30-year-old male with remote history of opioid/heroin abuse who reports he is 8 years sober but on Suboxone. He states over the last 4 months or so he has drank 1/5 of liquor daily. He reports that he would typically haveto wake in the middle the night to help with symptoms and have a drink first thing when he wakes up. He states that he is not ready to seek help and is seeking placement in the hospital for detox. He states other than the Suboxone he takes no daily medication and he denies any illicit drug use. [facility] Medical History Intertrigo Generalized headaches Drug abuse Bone fracture Hidradenitis Home Medications ?Medication ?Instructions ?Recorded ?Last Taken ?Type buprenorphine 8 mg-naloxone 2 mg 1 tab sublingual BID drug detox 03/14/25 03/13/25 08:00 History sublingual tablet Allergy/AdvReac Type Severity Reaction Status Date / Time No Known Allergies Allergy Verified 03/13/25 21:17 Family History Other No pertinent family history Surgical History History of excision of lesion Social History Smoking Status: Current every day smoker tobacco type: e-cigarettes alcohol intake: former substance use type: former substance user ROS ROS ED Constitutional Constitutional ED: Denies chills or fever(s) Eyes Eyes: Denies change in vision ENT ENT ED: Denies sore throat Cardiovascular Cardiovascular: Denies chest pain Respiratory/Chest Respiratory/Chest: Denies cough or dyspnea Gastrointestinal Gastrointestinal: Denies abdominal pain, diarrhea, nausea or vomiting Musculoskeletal Musculoskeletal: Denies myalgias Integumentary Denies rash Neurologic Neurologic: Denies headache(s) or paresthesias Hematologic/Lymphatic Hematologic/Lymphatic: Denies easy bleeding or easy bruising EXAM Physical Exam Const Vital Signs: 03/13/25 21:17 Temperature 98.6 F Temperature Source Oral Pulse Rate 104 H Respiratory Rate 16 Blood Pressure 126/92 H Blood Pressure Mean 103 Pulse Ox 99 Oxygen Delivery Method Room Air Positive well nourished and well developed General Appearance ED: well developed; Negative for pallor HEENT HEENT Narrative: Normocephalic atraumatic Eyes EOMs intact bilaterally Eyes Narrative: Pupils are dilated and slightly sluggish to respond to light consistent with alcohol use. There is also mild scleral injection. General Eye ED: Negative for scleral icterus Neck supple Resp normal respiratory effort and clear to auscultation bilaterally Cardio regular rate and regular rhythm GI normal to inspection, nondistended, normoactive bowel sounds, non-tender, non-distended and no masses GI Narrative: No organomegaly noted Auscultation: normoactive bowel sounds Palpation: soft Extremity normal to inspection Neuro oriented x3, CN's II-XII intact bilaterally and no sensory deficits noted Sensorium / Orientation: alert Motor Exam: strength 5/5 throughout Psych mental status grossly normal Skin no rashes or lesions noted and no wounds General Skin Exam: Negative for jaundice or pallor MDM MDM MDM Narrative Medical decision making narrative: Patient arrived to the ER awake and alert without obvious signs of alcohol withdrawal. He reports he has drank 1/5 of liquor daily for approximately 4 months. Based on this reported amount of alcohol and his symptoms that he was states he obtains when he tries to sleep there is high likelihood for him to progress to severe withdrawal/delirium tremens. Therefore I do feel the safest option will be admission to the hospital for continued evaluation and treatment to prevent this occurrence. Basic labs were obtained which show no clinically significant findings other than his elevated alcohol level which correlates withhis use. As the patient is not exhibiting withdrawal symptoms at this time I did not provide any type of Ativan or phenobarbital. However as the patient is at high risk for progression to DTs from withdrawal symptoms the hospitalist wascontacted and agrees to accept the patient for continued treatment of his alcohol abuse. History & Record Review Discussion w/independent historian: Patient and Significant other Lab Data Attestation: I reviewed the patient's lab results. Labs: Laboratory Results - last 24 hr 03/13/25 21:42 WBC 5.3 RBC 5.07 Hgb 16.5 Hct 47.8 MCV 94.3 H MCH 32.5 H MCHC 34.5 RDW Std Deviation 42.3 RDW Coeff of Viry 12.2 Plt Count 175 MPV 10.1 Immature Gran % (Auto) 0.400 Neut % (Auto) 69.3 Lymph % (Auto) 23.4 Dewey % (Auto) 5.6 Eos % (Auto) 0.9 Baso % (Auto) 0.4 Absolute Neuts (auto) 3.7 Absolute Lymphs (auto) 1.25 Nucleated RBC % 0 Sodium 140 Potassium 4.3 Chloride 101 Carbon Dioxide 26.8 Anion Gap 12 BUN 10 Creatinine 0.90 Estim Creat Clear Calc 137.37 Est GFR (MDRD) Non-Af 117 BUN/Creatinine Ratio 10.8 Glucose 116 H Calcium 9.4 Total Bilirubin 0.35 AST 79 H ALT 48 H Alkaline Phosphatase 93 Total Protein 7.8 Albumin 4.8 Globulin 3.0 Albumin/Globulin Ratio 1.6 Urine Opiates Screen NEGATIVE U Buprenorphine Qual PRESUMPTIVE POSITIVE Ur Oxycodone Screen NEGATIVE Urine Methadone Screen NEGATIVE Urine Fentanyl Screen NEGATIVE Ur Barbiturates Screen NEGATIVE Ur Phencyclidine Scrn NEGATIVE Ur Amphetamines Screen NEGATIVE U Benzodiazepines Scrn NEGATIVE Urine Cocaine Screen NEGATIVE U Cannabinoids Screen PRESUMPTIVE POSITIVE Ethyl Alcohol 271.0 H Management Discussion w/another healthcare provider: Hospitalist Discharge Plan Dx/Rx/DC Orders Clinical Impression: Alcohol abuse, Desire for detoxification Disposition Disposition: Acute Care Hospital [facility] Discharge Date/Time: 03/13/25 23:55 What to do if you have Problems For any increased pain, shortness of breath, bleeding, nausea or vomiting, chestpain, or any unexpected problems, contact your Primary Care Provider. Call [facility] ([phone]) or report to the closest Emergency Room. Call 911 if necessary. 03/14/25222 <Electronically signed by Dandy Brink DO> Cosigner Signature (if applicable): CC: No Primary Care Physician ~ Signed [facility] Work Phone: [phone] 973-976407-10-2025 History and physical note [facility] Medical Records Department [address] [place] [address] H&P Exam - Hospitalist 03/13/25 2247 MR#: [id number] Acct: [id number] Name: VINAY ARMENDARIZ Rep #:[id number] : 1995 30 From: Arnaud magallanes DO PCP: Care Physician,No Primary Status :ADM IN Location: [facility] [id number] HPI - General General Date of Admission: 03/13/25 Date of Service: 03/13/25 Chief Complaint: Alcohol detox HPI Narrative VINAY ARMENDARIZ, is a 30 M who presented to [facility] ED on 03/13/2025 with desire for alcohol detox. Saw patient at bedside in the ED, significant other present. Patient was mildly anxious appearing but otherwise sitting back comfortably in bed and in no acute distress. Patient has history of opiate abuse but reports being clean for over 8 years and is on Suboxone. Noother significant medical history, takes no other medications at baseline. He reports minimal alcohol use until about 6 months ago. He has now been drinking heavily for the past 3 to 4 months. Has been drinking 1/5 of liquor daily. No prior history of alcohol detox. Alcohol level 271 on admit. Reports feeling anxious but denies any tremors or other withdrawal symptoms currently. Will be admitted for further management. [facility] Medical History Intertrigo Generalized headaches Drug abuse Bone fracture Hidradenitis Home Medications ?Medication ?Instructions ?Recorded ?Last Taken ?Type buprenorphine 8 mg-naloxone 2 mg 1 tab sublingual BID drug detox 03/14/25 03/13/25 08:00 History sublingual tablet Allergy/AdvReac Type Severity Reaction Status Date / Time No Known Allergies Allergy Verified 03/13/25 21:17 Family History Other No pertinent family history Surgical History History of excision of lesion Social History Smoking Status: Current every day smoker tobacco type: e-cigarettes alcohol intake: former substance use type: former substance user ROS Constitutional Constitutional: Denies chills, fatigue, fever(s) or weakness Eyes Eyes: Denies change in vision Cardiovascular Cardiovascular: Denies chest pain Respiratory/Chest Respiratory/Chest: Denies shortness of breath at rest Gastrointestinal Gastrointestinal: Reports nausea; Denies abdominal pain or vomiting Psychiatric Psychiatric: Reports anxiety Vital Signs Vital Signs Vital Signs: 03/13/25 21:17 Temperature 98.6 F Temperature Source Oral Pulse Rate 104 H Respiratory Rate 16 Blood Pressure 126/92 H Blood Pressure Mean 103 Pulse Ox 99 Oxygen Delivery Method Room Air Weight Weight: 80.921 kg Body Mass Index (BMI) 22.8 Physical Exam Const alert, oriented x3, no apparent distress and average body habitus Constitutional Narrative: Pleasant younger male, mildly anxious and flushed appearing, otherwise sitting back comfortably in bed, conversing normally, in no acute distress. General Appearance: cooperative and comfortable HEENT normocephalic, head/scalp atraumatic, hearing grossly normal bilaterally, nasal mucous membranes and turbinates normal and moist oral mucous membranes Eyes PERRL, EOMs intact bilaterally and conjunctivae normal Neck full ROM Chest inspection of chest normal Resp normal respiratory effort, normal air movement, no use of accessory muscles and clear to auscultation bilaterally Cardio regular rate, regular rhythm, no murmurs and peripheral pulses 2+ throughout GI normal to inspection, nondistended, normoactive bowel sounds, soft to palpation,non-tender and non-distended Back/Spine normal ROM Extremity normal to inspection, full ROM and no pedal edema Skin no rashes or lesions noted Psych mental status grossly normal Mood & Affect: anxious Results Lab / Micro Data 03/13/25 21:42 03/13/25 21:42 Labs: Laboratory Results - last 24 hr 03/13/25 21:42: WBC 5.3, RBC 5.07, Hgb 16.5, Hct 47.8, MCV 94.3 H, MCH 32.5 H, MCHC 34.5, RDW Std Deviation 42.3, RDW Coeff of Viry 12.2, Plt Count 175, MPV 10.1, Immature Gran % (Auto) 0.400, Neut % (Auto) 69.3, Lymph % (Auto) 23.4, Dewey % (Auto) 5.6, Eos % (Auto) 0.9, Baso % (Auto) 0.4, Absolute Neuts (auto) 3.7, Absolute Lymphs (auto) 1.25, Nucleated RBC % 0, Sodium 140, Potassium 4.3, [id number], Carbon Dioxide 26.8, Anion Gap 12, BUN 10, Creatinine 0.90, Estim Creat Clear Calc 137.37, EstGFR (MDRD) Non-Af 117, BUN/Creatinine Ratio 10.8, Glucose 116 H, Calcium 9.4, Total Bilirubin 0.35,AST 79 H, ALT 48 H, Alkaline Phosphatase 93, Total Protein 7.8, Albumin 4.8, Globulin 3.0, Albumin/Globulin Ratio 1.6, Urine Opiates Screen NEGATIVE, U Buprenorphine Qual PRESUMPTIVE POSITIVE, Ur Oxycodone Screen NEGATIVE, Urine Methadone Screen NEGATIVE, Urine Fentanyl Screen NEGATIVE, Ur Barbiturates Screen NEGATIVE, Ur Phencyclidine ScrnNEGATIVE, Ur Amphetamines Screen NEGATIVE, U Benzodiazepines Scrn NEGATIVE, Urine Cocaine Screen NEGATIVE, U Cannabinoids Screen PRESUMPTIVE POSITIVE, EthylAlcohol 271.0 H Assessment & Plan Assessment/Plan (1) Alcohol abuse: (2) Desire for detoxification: PLAN: Plan Patient is a 30-year-old male who presented to [facility] ED on 03/13/2025 for alcohol detox. 1. Alcohol abuse with acute intoxication and desire for detox ? Admit under inpatient status to [facility]. Case management consulted. Alcohol level 271 on admit. Reports drinking 1/5 of liquor daily. No prior history of detox. Given patient is high risk for withdrawal, will treat with phenobarbitaltaper and other as needed medications per alcohol withdrawal order set. 2. Tobacco abuse ? Reports heavy vape use on a daily basis. Nicotine patch ordered per patient request. Discussed cessation on discharge. 3. History of opiate abuse ? Has been clean for over 8 years per his report. Continue home Suboxone. 4. History of hidradenitis suppurativa ? Previously followed with Dr. Riggins with [facility] here for this. Patient denies any recent issues with this. No inpatient needs, outpatient follow-up asneeded. DVT prophylaxis: Low risk, ambulate CODE STATUS: Full code, verified Expected disposition: TBD Total clinical time spent by myself addressing the patient's medical issues, reviewing all the data, and collaborating with patient's care team: 55 minutes. Charges/Coding Visit Charges Inpatient E&M: 81922 Init Hosp L2 03/14/25 0315 Cosigner Signature (if applicable): CC: Dr. Arnaud Ritchie DO; No Primary Care Physician~ Signed [facility]07-10-2025 Discharge summary [facility] Medical Records Department [address] [place] [address] Emergency Department Summary 03/13/25 MR#: [id number] Acct: [id number] Name: VINAY ARMENDARIZ Rep #:[id number] : 1995 30 From: Dandy Brink DO PCP: Care Physician,No Primary Status :ADM IN Location: MS3 [id number] HPI History of Present Illness Chief Complaint: ETOH Intox Informant: patient and spouse/S.O. Narrative Narrative: Patient is a 30-year-old male with remote history of opioid/heroin abuse who reports he is 8 years sober but on Suboxone. He states over the last 4 months or so he has drank 1/5 of liquor daily. He reports that he would typically haveto wake in the middle the night to help with symptoms and have a drink first thing when he wakes up. He states that he is not ready to seek help and is seeking placement in the hospital for detox. He states other than the Suboxone he takes no daily medication and he denies any illicit drug use. [facility] Medical History Intertrigo Generalized headaches Drug abuse Bone fracture Hidradenitis Home Medications ?Medication ?Instructions ?Recorded ?Last Taken ?Type buprenorphine 8 mg-naloxone 2 mg 1 tab sublingual BID drug detox 03/14/25 03/13/25 08:00 History sublingual tablet Allergy/AdvReac Type Severity Reaction Status Date / Time No Known Allergies Allergy Verified 03/13/25 21:17 Family History Other No pertinent family history Surgical History History of excision of lesion Social History Smoking Status: Current every day smoker tobacco type: e-cigarettes alcohol intake: former substance use type: former substance user ROS ROS ED Constitutional Constitutional ED: Denies chills or fever(s) Eyes Eyes: Denies change in vision ENT ENT ED: Denies sore throat Cardiovascular Cardiovascular: Denies chest pain Respiratory/Chest Respiratory/Chest: Denies cough or dyspnea Gastrointestinal Gastrointestinal: Denies abdominal pain, diarrhea, nausea or vomiting Musculoskeletal Musculoskeletal: Denies myalgias Integumentary Denies rash Neurologic Neurologic: Denies headache(s) or paresthesias Hematologic/Lymphatic Hematologic/Lymphatic: Denies easy bleeding or easy bruising EXAM Physical Exam Const Vital Signs: 03/13/25 21:17 Temperature 98.6 F Temperature Source Oral Pulse Rate 104 H Respiratory Rate 16 Blood Pressure 126/92 H Blood Pressure Mean 103 Pulse Ox 99 Oxygen Delivery Method Room Air Positive well nourished and well developed General Appearance ED: well developed; Negative for pallor HEENT HEENT Narrative: Normocephalic atraumatic Eyes EOMs intact bilaterally Eyes Narrative: Pupils are dilated and slightly sluggish to respond to light consistent with alcohol use. There is also mild scleral injection. General Eye ED: Negative for scleral icterus Neck supple Resp normal respiratory effort and clear to auscultation bilaterally Cardio regular rate and regular rhythm GI normal to inspection, nondistended, normoactive bowel sounds, non-tender, non- distended and no masses GI Narrative: No organomegaly noted Auscultation: normoactive bowel sounds Palpation: soft Extremity normal to inspection Neuro oriented x3, CN's II-XII intact bilaterally and no sensory deficits noted Sensorium / Orientation: alert Motor Exam: strength 5/5 throughout Psych mental status grossly normal Skin no rashes or lesions noted and no wounds General Skin Exam: Negative for jaundice or pallor MDM MDM MDM Narrative Medical decision making narrative: Patient arrived to the ER awake and alert without obvious signs of alcohol withdrawal. He reports he has drank 1/5 of liquor daily for approximately 4 months. Based on this reported amount of alcoholand his symptoms that he was states he obtains when he tries to sleep there is high likelihood for him to progress to severe withdrawal/delirium tremens. Therefore I do feel the safest option will beadmission to the hospital for continued evaluation and treatment to prevent this occurrence. Basic labs were obtained which show no clinically significant findings other than his elevated alcohol level which correlates withhis use. As the patient is not exhibiting withdrawal symptoms at this time I did not provide any type of Ativan or phenobarbital. However as the patient is at high risk for progression to DTs from withdrawal symptoms the hospitalist wascontacted and agrees to accept the patient for continued treatment of his alcohol abuse. History & Record Review Discussion w/independent historian: Patient and Significant other Lab Data Attestation: I reviewed the patient's lab results. Labs: Laboratory Results - last 24 hr 03/13/25 21:42 WBC 5.3 RBC 5.07 Hgb 16.5 Hct 47.8 MCV 94.3 H MCH 32.5 H MCHC 34.5 RDW Std Deviation 42.3 RDW Coeff of Viry 12.2 Plt Count 175 MPV 10.1 Immature Gran % (Auto) 0.400 Neut % (Auto) 69.3 Lymph % (Auto) 23.4 Dewey % (Auto) 5.6 Eos % (Auto) 0.9 Baso % (Auto) 0.4 Absolute Neuts (auto) 3.7 Absolute Lymphs (auto) 1.25 Nucleated RBC % 0 Sodium 140 Potassium 4.3 Chloride 101 Carbon Dioxide 26.8 Anion Gap 12 BUN 10 Creatinine 0.90 Estim Creat Clear Calc 137.37 Est GFR (MDRD) Non-Af 117 BUN/Creatinine Ratio 10.8 Glucose 116 H Calcium 9.4 Total Bilirubin 0.35 AST 79 H ALT 48 H Alkaline Phosphatase 93 Total Protein 7.8 Albumin 4.8 Globulin 3.0 Albumin/Globulin Ratio 1.6 Urine Opiates Screen NEGATIVE U Buprenorphine Qual PRESUMPTIVE POSITIVE Ur Oxycodone Screen NEGATIVE Urine Methadone Screen NEGATIVE Urine Fentanyl Screen NEGATIVE Ur Barbiturates Screen NEGATIVE Ur Phencyclidine Scrn NEGATIVE Ur Amphetamines Screen NEGATIVE U Benzodiazepines Scrn NEGATIVE Urine Cocaine Screen NEGATIVE U Cannabinoids Screen PRESUMPTIVE POSITIVE Ethyl Alcohol 271.0 H Management Discussion w/another healthcare provider: Hospitalist Discharge Plan Dx/Rx/DC Orders Clinical Impression: Alcohol abuse, Desire for detoxification Disposition Disposition: Acute Care Hospital [facility] Discharge Date/Time: 03/13/25 23:55 What to do if you have Problems For any increased pain, shortness of breath, bleeding, nausea or vomiting, chestpain, or any unexpected problems, contact your Primary Care Provider. Call [facility] ([phone]) or report tothe closest Emergency Room. Call 911 if necessary. 03/14/25 0223 Cosigner Signature (if applicable): CC: No Primary Care Physician ~ Signed [facility]07-10-2025 Evaluation note* Diagnosis Onset Date Resolution Status Admit Date Alcohol abuse acute March 13 10:47pm Desire for detoxification acute March 13, 2025 10:47pm [facility] Work Phone: [phone]) 325-201507-09-2025 Evaluation + Plan note Diagnostic Tests Pending * Complete Blood Count 03/13/25 * Complete Metabolic Panel 03/13/25 * Urine Chemistry (AO/AAH Only) 03/13/25 * Acetaminophen Level 03/13/25 * Salicylate Level 03/13/25 * Ethanol Level 03/13/25 * Urine Drug Screen (AO/AM/AAH Only) 03/13/25 * COVID/FLU/RSV PCR Screen 03/13/25 * Fentanyl Screen, Urine 03/13/25 * Oxycodone Screen, Urine 03/13/25 * Troponin I High Sensitivity 03/13/25 * CPK 03/13/25 [facility] 10-12-2024 NoteHNO ID: [id number] Author: ABDULLAHI MERINO APRN.HIGH SCHOOL COMPUTER SCIENCE TEACHER Service: ? Author Type: Nurse Practitioner Type: Progress Notes Filed: 06/16/2024 15:17 Note Text: Subjective HPI Nontoxic-appearing male presents urgent care with persistent cough. Duration of symptoms 3 to 4 weeks. Associated symptoms persistent cough. Cough has been improving pain productive recently. Presents today for evaluation. Sick contacts at home. OTC medications none. No chest pain shortness of breath pleuritic pain hemoptysis. No fevers. Past medical history prescription medications allergies reviewed. .Patient presents with: Cough: productive x 3-4 weeks PAST MEDICAL HISTORY Diagnosis Date Acne Acne Vulgaris: Grade IV on lower face/chin 12/16/2009 Depression 05/09/2013 Eczematous dermatitis 05/19/2010 Hidradenitis suppurativa 08/04/2009 Irritant dermatitis 05/19/2010 Keratosis pilaris 05/19/2010 Sebaceous cyst 07/19/2009 Varicella age 5 years Xerosis cutis 05/19/2010 PAST SURGICAL HISTORY Procedure Laterality Date ADENOIDECTOMY PRIMARY Adenoidectomy PAST SURGICAL HISTORY OF 02/04/2010 Hidradenitis Suppurativa TONSILLECTOMY PRIMARY/SECONDARY Tonsillectomy ALLERGIES Anaprox [Naproxen] and Amoxicillin MEDICATIONS buPROPion XL (WELLBUTRIN XL) 300 mg 24 hr tablet Take 1 tablet by mouth every afternoon. meloxicam (MOBIC) 15 mg tablet Take 1 tablet by mouth every afternoon. propranolol (INDERAL) 20 mg tablet Take by mouth. Buprenorphine-nalOXone (SUBOXONE) 8-2 mg film Dissolve under the tongue once daily. polyethylene glycol 3350 (MIRALAX, GLYCOLAX) 17 gram packet Take 1 Packet by mouth once daily. (Patient not taking: Reported on 06/16/2024) senna-docusate (SENNA-S) 8.6-50 mg per tablet Take 1 tablet by mouth twice daily. (Patient not taking: Reported on 06/16/2024) FAMILY HISTORY Problem Relation Age of Onset other (negative family history [Other]) Unknown Social History Tobacco Use Smoking status: Every Day Smokeless tobacco: Never Substance Use Topics Alcohol use: No Drug use: No BP 118/68 Pulse 78 Temp 36.2 ?C (97.2 ?F) Resp 16 Wt 76.5 kg (168 lb 10.4 oz) SpO2 98% BMI 21.65 kg/m? Review of Systems Constitutional: Negative for chills, fever and malaise/fatigue. HENT: Positive for congestion. Negative for ear discharge, ear pain, sinus pain and sore throat. Eyes: Negative for blurred vision, pain, discharge and redness. Respiratory: Positive for cough and sputum production. Negative for hemoptysis, shortness of breath, wheezing and stridor. Cardiovascular: Negative for chest pain. Gastrointestinal: Negative for abdominal pain, diarrhea, nausea and vomiting. Musculoskeletal: Negative for myalgias. Skin: Negative for itching and rash. Neurological: Negative for dizziness and headaches. Objective Physical Exam Constitutional: General: He is not in acute distress. Appearance: He is not diaphoretic. HENT: Head: Normocephalic. Jaw: No trismus, tenderness, swelling or pain on movement. Nose: Congestion present. Mouth/Throat: Mouth: Mucous membranes are moist. Pharynx: Oropharynx is clear. Uvula midline. No pharyngeal swelling, oropharyngeal exudate, posterior oropharyngeal erythema or uvula swelling. Eyes: Conjunctiva/sclera: Conjunctivae normal. Pupils: Pupils are equal, round, and reactive to light. Cardiovascular: Rate and Rhythm: Normal rate and regular rhythm. Heart sounds: Normal heart sounds. Pulmonary: Effort: Pulmonary effort is normal. No tachypnea, accessory muscle usage or respiratory distress. Breath sounds: No stridor. Rhonchi present. No wheezing or rales. Abdominal: General: There is no distension. Palpations: Abdomen is soft. Tenderness: There is no abdominal tenderness. There is no guarding or rebound. Musculoskeletal: Cervical back: Normal range of motion and neck supple. No edema, erythema, rigidity or tenderness. No pain with movement. Normal range of motion. Lymphadenopathy: Cervical: No cervical adenopathy. Skin: General: Skin is warm and dry. Neurological: Mental Status: He is alert and oriented to person, place, and time. ASSESSMENT/PLAN: 1. Lower resp. tract infection - ICD9: 519.8, ICD10: J22 Diagnosed with lower respiratory tract. Advantageous lung sounds noted right lobe. Placed on doxycycline. Follow-up with PCP 72 hours symptoms are not improving. Patient was educated on supportive therapies. Patient was instructed to immediately proceed to emergency room for any new, worsening, or symptoms lasting longer than anticipated. The patient's clinical presentation is otherwise unremarkable at this time. Based on exam and clinical finding, the patient is stable for discharge. Plan of care was discussed with patient. Patient verbalizes understanding and agrees to plan of care. This note was generated using [employer] software. It may contain errors in wording, punctuation, or spelling. (more content not included)...[facility]10-12-2024 History of Present illness Narrative* Abdullahi Merino, FRANCESCA.HIGH SCHOOL COMPUTER SCIENCE TEACHER - 06/16/2024 2:59 PM EDT Subjective HPI Nontoxic-appearing male presents urgent care with persistent cough. Duration of symptoms 3 to 4 weeks. Associated symptoms persistent cough. Cough has been improving pain productive recently. Presents today for evaluation. Sick contacts at home. OTC medications none. No chest pain shortness of breath pleuritic pain hemoptysis. No fevers. Past medical history prescription medications allergies reviewed. .Patient presents with: Cough: productive x 3-4 weeks PAST MEDICAL HISTORY Diagnosis Date Acne Acne Vulgaris: Grade IV on lower face/chin 12/16/2009 Depression 05/09/2013 Eczematous dermatitis 05/19/2010 Hidradenitis suppurativa 08/04/2009 Irritant dermatitis 05/19/2010 Keratosis pilaris 05/19/2010 Sebaceous cyst 07/19/2009 Varicella age 5 years Xerosis cutis 05/19/2010 PAST SURGICAL HISTORY Procedure Laterality Date ADENOIDECTOMY PRIMARY <AGE 12 Adenoidectomy PAST SURGICAL HISTORY OF 02/04/2010 Hidradenitis Suppurativa TONSILLECTOMY PRIMARY/SECONDARY <AGE 12 Tonsillectomy ALLERGIES Anaprox [Naproxen] and Amoxicillin MEDICATIONS buPROPion XL (WELLBUTRIN XL) 300 mg 24 hr tablet Take 1 tablet by mouth every afternoon. meloxicam (MOBIC) 15 mg tablet Take 1 tablet by mouth every afternoon. propranolol (INDERAL) 20 mg tablet Take by mouth. Buprenorphine-nalOXone (SUBOXONE) 8-2 mg film Dissolve under the tongue once daily. polyethylene glycol 3350 (MIRALAX, GLYCOLAX) 17 gram packet Take 1 Packet by mouth once daily. (Patient not taking: Reported on 06/16/2024) senna-docusate (SENNA-S) 8.6-50 mg per tablet Take 1 tablet by mouth twice daily. (Patient not taking: Reported on 06/16/2024) FAMILY HISTORY Problem Relation Age of Onset other (negative family history [Other]) Unknown Social History Tobacco Use Smoking status: Every Day Smokeless tobacco: Never Substance Use Topics Alcohol use: No Drug use: No BP 118/68 Pulse 78 Temp 36.2 C (97.2 F) Resp 16 Wt 76.5 kg (168 lb 10.4 oz) SpO2 98% BMI 21.65 kg/m Review of Systems Constitutional: Negative for chills, fever and malaise/fatigue. HENT: Positive for congestion. Negative for ear discharge, ear pain, sinus pain and sore throat. Eyes: Negative for blurred vision, pain, discharge and redness. Respiratory: Positive for cough and sputum production. Negative for hemoptysis, shortness of breath, wheezing and stridor. Cardiovascular: Negative for chest pain. Gastrointestinal: Negative for abdominal pain, diarrhea, nausea and vomiting. Musculoskeletal: Negative for myalgias. Skin: Negative for itching and rash. Neurological: Negative for dizziness and headaches. Objective Physical Exam Constitutional: General: He is not in acute distress. Appearance: He is not diaphoretic. HENT: Head: Normocephalic. Jaw: No trismus, tenderness, swelling or pain on movement. Nose: Congestion present. Mouth/Throat: Mouth: Mucous membranes are moist. Pharynx: Oropharynx is clear. Uvula midline. No pharyngeal swelling, oropharyngeal exudate, posterior oropharyngeal erythema or uvula swelling. Eyes: Conjunctiva/sclera: Conjunctivae normal. Pupils: Pupils are equal, round, and reactive to light. Cardiovascular: Rate and Rhythm: Normal rate and regular rhythm. Heart sounds: Normal heart sounds. Pulmonary: Effort: Pulmonary effort is normal. No tachypnea, accessory muscle usage or respiratory distress. Breath sounds: No stridor. Rhonchi present. No wheezing or rales. Abdominal: General: There is no distension. Palpations: Abdomen is soft. Tenderness: There is no abdominal tenderness. There is no guarding or rebound. Musculoskeletal: Cervical back: Normal range of motion and neck supple. No edema, erythema, rigidity or tenderness. No pain with movement. Normal range of motion. Lymphadenopathy: Cervical: No cervical adenopathy. Skin: General: Skin is warm and dry. Neurological: Mental Status: He is alert and oriented to person, place, and time. ASSESSMENT/PLAN: 1. Lower resp. tract infection - ICD9: 519.8, ICD10: J22 Diagnosed with lower respiratory tract. Advantageous lung sounds noted right lobe. Placed on doxycycline. Follow-up with PCP 72 hours symptoms are not improving. Patient was educated on supportive therapies. Patient was instructed to immediately proceed to emergency room for any new, worsening, or symptoms lasting longer than anticipated. The patient's clinical presentation is otherwise unremarkable at this time. Based on exam and clinical finding, the patient is stable for discharge. Plan of care was discussed with patient. Patient verbalizes understanding and agrees to plan of care. This note was generated using [employer] software. It may contain errors in wording, punctuation, or spelling. Abdullahi Merino APRN.HIGH SCHOOL COMPUTER SCIENCE TEACHER documented in [facility] Hospital Discharge instructions Patient Education 06/05/2022 17:13:07 Fracture, Finger, Closed Finger Fracture, Closed You have a broken finger (fracture). This causes local pain, swelling, and bruising. This injury usually takes about 4 to 6 weeks to heal, but can take longer in some cases. Finger injuries are oftentreated with a splint or cast, or by taping the injured finger to the next one (obed taping). Thisprotects the injured finger and holds the bone in position while it heals. More serious fractures may need surgery. If the fingernail has been severely injured, it will probably fall off in 1 to 2 weeks. A new fingernail will usually start to grow back within a month. Home care Follow these guidelines when caring for yourself at home: Keep your hand elevated to reduce pain and swelling. When sitting or lying down keep your arm abovethe level of your heart. You can do this by placing your arm on a pillow that rests on your chest or on a pillow at your side. This is most important during the first 2 days (48 hours) after the injury. Put an ice pack on the injured area. Do this for 20 minutes every 1 to 2 hours the first day for pain relief. You can make an ice pack by wrapping a plastic bag of ice cubes in a thin towel. As the ice melts, be careful that the cast or splint doesn t get wet. Continue using the ice pack 3 to 4 times a day until the pain and swelling go away. Keep the cast or splint completely dry at all times. Bathe with your cast or splint out of the water. Protect it with a large plastic bag, rubber-banded at the top end. If a fiberglass cast or splintgets wet, you can dry it with a astronomy department chair. If obed tape was put on and it becomes wet or dirty, change it. You may replace it with paper, plastic, or cloth tape. Cloth tape and paper tapes must be kept dry. Keep the obed tape in place for at least 4 weeks. You may use acetaminophen or ibuprofen to control pain, unless another pain medicine was prescribed. If you have chronic liver or kidney disease, talk with your healthcare provider before using thesemedicines. Also talk with your provider if you ve had a stomach ulcer or gastrointestinal bleeding. Don t put creams or objects under the cast if you have itching. Follow-up care Follow up with your healthcare provider, or as advised. This is to make sure the bone is healing the way it should. X-rays may be taken. You will be told of any new findings that may affect your care. When to seek medical advice Call your healthcare provider right away if any of these occur: The plaster cast or splint becomes wet or soft The cast or splint cracks The fiberglass cast or splint stays wet for more than 24 hours Pain or swelling gets worse Redness, warmth, swelling, drainage from the wound, or foul odor from a cast or splint Finger becomes more cold, blue, numb, or tingly You can t move your finger The skin around the cast or splint becomes red Fever of 100.4 F (38 C) or higher, or as directed by your healthcare provider [id number] [employer]. [address] [place] [address]. All rights reserved. This information is not intended as a substitute for professional medical care. Always follow yourhealthcare professional's instructions. Follow Up Care 06/05/2022 16:30:52 With:Follow up with primary care provider Address:Unknown When:2-4 days [facility] 10-01-2022 Emergency department Discharge summary Discharge Instructions Thank you for allowing [facility] to assist you with your healthcare needs. The following is importantdischarge information regarding your hospital visit. Diagnosis from Today's Visit Finger fracture Finger pain-swelling What to Do Next Instructions from Your Care Team Discharge Return to Work, School, or Sports (Return to Work, School, or Sports) - Ordered -- May return to: work, finger fracture. light duty x 2 weeks, 06/05/22 17:12:00 EDT Post Acute Orders No qualifying data available. You Need to Schedule the Following Appointments Follow Up with Follow up with primary care provider When Within 2-4 days Allergies NKA Medications Please ask your primary doctor or pharmacist before taking any other medication not listed, including over the counter drugs, herbal medications, vitamins and or supplements as they may interact withyour home medications. What When Instructions Last Dose Unchanged buprenorphine-naloxone (buprenorphine-naloxone 8 mg-2 mgsublingual TABLET) Unchanged meloxicam (meloxicam 15 mg oral tablet) Unchanged propranolol (propranolol 20 mg oral tablet) Please take this list to your next doctor s visit. Bring all medications you take, including over the counter medications, herbals and other supplements with you to your doctor s visit. Patients and families are reminded to discard old lists and to update any records with all medication providers or retail pharmacies. Education Materials Finger Fracture, Closed You have a broken finger (fracture). This causes local pain, swelling, and bruising. This injury usually takes about 4 to 6 weeks to heal, but can take longer in some cases. Finger injuries are oftentreated with a splint or cast, or by taping the injured finger to the next one (obed taping). Thisprotects the injured finger and holds the bone in position while it heals. More serious fractures may need surgery. If the fingernail has been severely injured, it will probably fall off in 1 to 2 weeks. A new fingernail will usually start to grow back within a month. Home care Follow these guidelines when caring for yourself at home: Keep your hand elevated to reduce pain and swelling. When sitting or lying down keep your arm abovethe level of your heart. You can do this by placing your arm on a pillow that rests on your chest or on a pillow at your side. This is most important during the first 2 days (48 hours) after the injury. Put an ice pack on the injured area. Do this for 20 minutes every 1 to 2 hours the first day for pain relief. You can make an ice pack by wrapping a plastic bag of ice cubes in a thin towel. As the ice melts, be careful that the cast or splint doesn t get wet. Continue using the ice pack 3 to 4 times a day until the pain and swelling go away. Keep the cast or splint completely dry at all times. Bathe with your cast or splint out of the water. Protect it with a large plastic bag, rubber-banded at the top end. If a fiberglass cast or splintgets wet, you can dry it with a astronomy department chair. If obed tape was put on and it becomes wet or dirty, change it. You may replace it with paper, plastic, or cloth tape. Cloth tape and paper tapes must be kept dry. Keep the obed tape in place for at least 4 weeks. You may use acetaminophen or ibuprofen to control pain, unless another pain medicine was prescribed. If you have chronic liver or kidney disease, talk with your healthcare provider before using thesemedicines. Also talk with your provider if you ve had a stomach ulcer or gastrointestinal bleeding. Don t put creams or objects under the cast if you have itching. Follow-up care Follow up with your healthcare provider, or as advised. This is to make sure the bone is healing the way it should. X-rays may be taken. You will be told of any new findings that may affect your care. When to seek medical advice Call your healthcare provider right away if any of these occur: The plaster cast or splint becomes wet or soft The cast or splint cracks The fiberglass cast or splint stays wet for more than 24 hours Pain or swelling gets worse Redness, warmth, swelling, drainage from the wound, or foul odor from a cast or splint Finger becomes more cold, blue, numb, or tingly You can t move your finger The skin around the cast or splint becomes red Fever of 100.4 F (38 C) or higher, or as directed by your healthcare provider [id number] [employer]. [address] [place] [address]. All rights reserved. This information is not intended as a substitute for professional medical care. Always follow yourhealthcare professional's instructions. Additional Information VACCINATE! IT SAVES LIVES! Members of the community who have not yet received the COVID-19 vaccine and would like to receive it can visit one of [facility] vaccine clinics. There are many vaccine clinic locations within the [facility]. For locations and available times, please visit [email or web address]. It is important to note that some COVID mobile vaccine clinics are held outdoors and may be canceled in rainy orstormy conditions. To learn more about pediatric vaccinations (ages 5-11), we invite you to visit the [facility] webpage. [email or web address] [email or web address] learn more about the COVID-19 vaccine, we invite you to visit the [employer] website for a list of frequently asked questions. [email or web address] [facility] Access Instructions: Stay connected with your healthcare team and access your personal medical information anytime with the [facility] Patient Portal. If you would like a full copy of your medical records please contact the [facility] Medical Records Department Tuesday through Tuesday between 8a.m. and 4:30p.m. Please follow the directions below to access the portal: 1.Access the email account you provided upon registration to the [facility].2.Look for an invitation email from [facility].3.Open the email and access the invitation link: Accept Invitation to [facility]4.Fill in the required alford to create your account. Sign into [email or web address] with your username and password that you created in the above steps to stay up to date. You can then view a summary of results, a summary of your visits, and the ability to download your summaries to your computer or send the information securely to a physician. Remember that your healthcare information is confidential, so carefully consider who you will allow to register on the [facility] Patient Portal for access to your information. You can also access the [facility] Patient Portal on the [employer] roque. Simply click on "Health Records" under "HealthCtrip" and then click on the [employer] logo. HOW TO SAFELY DISPOSE OF PRESCRIPTION MEDICATIONS Please use one of the following methods to safely dispose of your unused medications. 1.Use a drug disposal kit: the drug disposal pouch allows you to safely discard your old and unuseddrugs. Ask your nurse to give you one when you are discharged.2.Visit a local take-back location: Many local pharmacies and police departments have programs that collect old and unwanted prescriptiondrugs. Call your local pharmacy or go to http://bit.[employer]/2V0Pu5x to find one close to you.3.Make use of household items: Use cat litter or old coffee grounds to dispose medications if other options arenot available. Mix your drugs with these household products, seal them in an airtight container andthrow it into the garbage. Call [facility]: [phone] to be sure your drugs can be disposed of in this way. Some medicines may require a different approach.4.Never flush your medications down the toilet. IF YOU HAVE BEEN PRESCRIBED AN OPIOIDS FOR PAIN If you have been prescribed an opioid (such as hydrocodone, oxycodone or morphine), it is critical to understand the possible side effects and risks of opioid pain medications. Even when taken as directed, opioids can have several side effects including: Tolerance, meaning you might need to take more of a medication for the same pain relief. Nausea, vomiting and/or constipation. Sleepiness, dizziness, dry mouth, confusion, depression or itching. Physical dependence, meaning you have withdrawal symptoms when a medication is stopped ? this can develop within a few days. KNOW YOUR RESPONSIBILITIES It is important to know exactly how much and how often to take the opioid pain medications you are prescribed. Never take opioids in higher amounts or more often than prescribed. Do not combine opioids with alcohol or other drugs that cause drowsiness, such as benzodiazepines, also known as benzos,including diazepam and alprazolam, muscle relaxants or sleep aids. Never sell or share prescriptionopioids. This is illegal. Store opioids in a secure place and out of reach of others (including children, family, friends and visitors). The last page(s) of this document has been signed and retained as a CHART COPY Signatures Patient Education Materials Fracture, Finger, Closed Medication Leaflets My discharge plan and instructions have been reviewed and explained to me and I,VINAY ARMENDARIZ understand my current condition and have read and understand these discharge instructions. I have received a written copy of the plan/instructions. If I have questions, I am aware that I should contact my d octor. 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 No significant angulation or rotation of the fracture fragment. No dislocation. No radiopaque foreign body. IMPRESSION: Minimally displaced volar plate avulsion fracture of the 2nd middle phalanx base. RECOMMENDATIONS: Unavailable Interpreted by: Kyle Callahan Preliminary Report By: Kyle Callahan Electronically signed By Kyle Callahan Dictated Date: 06/05/2022 4:55:55 PM Prelim Date: 06/05/2022 4:57:40 PM Sign Date: 06/05/2022 4:57:40 PM [facility] Note ORIGINAL EXAMINATION: THREE XRAY VIEWS OF THE LEFT JZODCEX58/1/2022 4:51 pm FINGER LEFT 3VW COMPARISON: None HISTORY: ORDERING SYSTEM PROVIDED HISTORY: Reason for Exam: pain FINDINGS: There is a fracture of the volar plate of the 2nd middle phalanx base; the fracture fragment is displaced anteriorly by 1.5 mm and involves approximately 5% of the articular surface. No significant angulation or rotation of the fracture fragment. No dislocation. No radiopaque foreign body. IMPRESSION: Minimally displaced volar plate avulsion fracture of the 2nd middle phalanx base. RECOMMENDATIONS: Unavailable Interpreted by: Kyle Callahan Preliminary Report By: Kyle Callahan Electronically signed By Kyle Callahan Dictated Date: 06/05/2022 4:55:55 PM Prelim Date: 06/05/2022 4:57:40 PM Sign Date: 06/05/2022 4:57:40 PM Ordering [facility] No data available for this section [facility] Evaluation noteNo assessment information available [facility] Work Phone: Evaluation note* Diagnosis Lower resp. tract infection- Primary Other diseases of respiratory system, not elsewhere classified documented in this encounter [facility] Discharge instructions No data available for this section [facility] Progress note No data available for this section [facility] Reason for referral (narrative)No reason for referral information [facility]Ohio[facility] Work Phone: Summary Purpose Family History No Family History Records Found Relationship Condition Age at Onset Recorded Date/T coco Unknown Family History?- Unknown August 9:20pm Family History?- Unknown November 09, 2015 6:29pm Family History?Heart Disease Unknown November 09, 2015 6:29pm Relationship Condition Age at Onset Recorded Date/T coco Not Specified No pertinent family history Unknown Advance Directives No Advanced Directives Records Found Advance Directive Response Recorded Date/ Time Advance Directives No October 03, 2016 9:30pm Living Will No July 27 9:05pm Power of Cad Librarian No July 27, 2018 9:05pm Advance Directive Response Recorded Date/ Time Do you have a Healthcare Power of Cad Librarian? No March 13, 2025 10:12pm Advance Directives No October 03, 2016 9:30pm Advance Directive Response Recorded Date/ Time Do you have a Healthcare Power of Cad Librarian? No March 14, 2025 12:05am Advance Directives No October 03, 2016 9:30pm Hospital Course Note HNO ID: [id number] Author: Esmer Helton ([place]) Service: Trauma Author Type: Physician Title Lawyer Type: Discharge Summaries Filed: 08/01/2018 4:07 PM Note Text: DISCHARGE SUMMARY PATIENT NAME: Vinay Armendariz Code Status: Not on file Highest Readmission Risk Score: 16 The 30 day readmissions risk score is derived from an internally validated risk model which evaluates patient level characteristics, utilization history, medication orders and lab results up until the day of discharge. Patients with a score of 40 or above are considered highest risk for readmission. Specific patient level drivers will be listed at the bottom of the summary. Admission Information Admission Information ADMIT DATE: 07/28/2018 DISCHARGE DATE: 08/01/2018 MY DOCTORS AND MEDICAL TEAM: My Main Hospital Doctor: Clayton Hogue Primary Care Provider: No primary care provider on file. My Medical Team Members: Treatment Team: Attending Provider: Clayton Hogue MY CONDITION AT DISCHARGE: Stable REAS (more content not included)... Chief Complaint and Reason for Visit Chief Complaint Admit Date ALCOHOL DETOX March 13, 2025 10:47 pm Chief Complaint Admit Date ALCOHOL DETOX March 13, 2025 10:47 pm ALCOHOL DETOX March 14, 2025 7:05 am ALCOHOL DETOX March 15, 2025 6:59 am Reason for Visit Admit Date Alcohol abuse March 13, 2025 10:47 pm Desire for detoxification March 13, 2025 10:47pm Additional Source Comments (unrecognized sect ion and content) No Status Records FoundNo Status Records FoundNo Status Records FoundNo Status Records FoundNo Status Records FoundNo Status Records Found INFORMATION SOURCE (unrecogn ized section and content) DATE CREATED AUTHOR 12/30/2018 [facility] DATE CREATED AUTHOR AUTHOR'S ORGANIZ ATION 12/30/2018 [facility] DATE CREATED AUTHOR AUTHOR'S ORGANIZ ATION 06/08/2022 [facility] ([place] DATE CREATED AUTHOR AUTHOR'S ORGANIZ ATION 06/18/2024 [facility] DATE CREATED AUTHOR AUTHOR'S ORGANIZ ATION 03/21/2025 [facility] DATE CREATED AUTHOR AUTHOR'S ORGANIZ ATION 03/28/2025 [facility] Goals (unrecognized section and content) Goals may be documented in a n alternate section No data available for this sectionGoals may be documented in an alternate section No data available for this section Source Comments (unrecognize d section and content) In the event this informatio n is protected by the Federal Confidentiality of Alcohol and Drug Abuse Patient Records regulations: The Federal rules restrict any use of the information to criminally investigate or prosecute any alcohol or drug abuse patient.[facility] Reason for Visit (unrecogniz ed section and content) Reason Comments Cough productive x 3-4 wee ks Care Teams (unrecognized sec tion and content) Team Status: Active Member Role/Relationship Status Dates No Primary Care Physician Primary Care Provider Active Team Status: Active Member Role/Relationship Status Dates Dr. Dandy Brink DO Referring Provider Active Start: March 13, 2025 Dr. Dandy Brink DO Emergency Provider Active Start: March 13, 2025 No Primary Care Physician Primary Care Provider Active Start: March 13, 2025 Dr. Arnaud Ritchie , DO Admit Provider Active Start: March 13, 2025 Dr. Arnaud Ritchie DO Attending Provider Active Start: March 13, 2025 Team Status: Inactive Member Role/Relationship Status Dates Dr. Dandy Brink DO Referring Provider Active Start: March 13, 2025 End: March 15, 2025 Dr. Dandy Brink DO Emergency Provider Active Start: March 13, 2025 End: March 15, 2025 No Primary Care Physician Primary Care Provider Active Start: March 13, 2025 End: March 15, 2025 Dr. Arnaud Ritchie DO Admit Provider Active Start: March 13, 2025 End: March 15, 2025 Dr. Arnaud Ritchie DO Other Provider Active Start: March 13, 2025 End: March 15, 2025 Dr. Mary Goddard MD Attending Provider Active Start: March 13, 2025 End: March 15, 2025 Team Status: Active Member Role/Relationship Status Dates Dr. Dandy Brink DO Referring Provider Active Start: March 14, 2025 Dr. Dandy Brink DO Emergency Provider Active Start: March 14, 2025 No Primary Care Physician Primary Care Provider Active Start: March 14, 2025 Dr. Arnaud Ritchie DO Admit Provider Active Start: March 14, 2025 Dr. Arnaud Ritchie DO Other Provider Active Start: March 14, 2025 Dr. Mary Goddard MD Attending Provider Active Start: March 14, 2025 Dr. Mary Goddard MD Other Provider Active St art: March 14, 2025 Team Status: Active Member Role/Relationship Status Dates Dr. Dandy Brink DO Referring Provider Active Start: March 15, 2025 Dr. Dandy Brink DO Emergency Provider Active Start: March 15, 2025 No Primary Care Physician Primary Care Provider Active Start: March 15, 2025 Dr. Arnaud Ritchie DO Admit Provider Active Start: March 15, 2025 Dr. Arnaud Ritchie , Other Provider Active Start: March 15, 2025 Dr. Mary Goddard MD Attending Provider Active Start: March 15, 2025 Dr. Mary Goddard MD Other Provider Active St art: March 15, 2025 FOR RECORDS PERTAINING TO PATIENTS WHO ARE OR HAVE BEEN ENROLLED IN A CHEMICAL DEPENDENCY/SUBSTANCEABUSE PROGRAM, SOME INFORMATION MAY BE OMITTED. This clinical summary was aggregated from multiple sources. Caution should be exercised in using it in the provision of clinical care. This summary normalizes information from multiple sources, and as a consequence, information in this document may materially change the coding, format and clinical context of patient data. In addition, data may be omitted in some cases. CLINICAL DECISIONS SHOULD BE BASED ON THE PRIMARY CLINICAL RECORDS. [employer] provides no warranty or guarantee of the accuracy or completeness of information in this document.
[2025-06-29 14:14] LABS: Hematocrit 41.5 % (40-54); Hemoglobin 15.0 g/dL (13.0-16.5); Immature Granulocytes Count 0.020 X10^3/uL (0.0-0.0); Mean Corp Hgb Conc 36.1 g/dL (32-36); Mean Corpuscular Volume 86.5 fL (80-94); Mean Platelet Vol. 10.4 fl (6.2-12.0); NRBC Flagged by Analyzer 0 % (0-5); Platelet Count 164 K/mm3 (150-450); RBC Distribution Width CV 13.2 % (11.6-14.6); RBC Distribution Width SD 41.1 fl (35.1-43.9); Red Blood Count 4.80 M/mm3 (4.6-6.2); White Blood Count 5.2 K/mm3 (4.4-11.0)
[2025-06-29 14:34] LABS: AST(SGOT) 43 U/L (<=37); Alanine Aminotransfer ALT/SGPT 42 U/L (<=46); Albumin, Serum 4.6 g/dL (3.5-5.0); Alcohol, Blood (Medical)-Serum 73.9 mg/dL (<=10.0); Alkaline Phosphatase 87 U/L (40-129); Anion Gap 15 (5-15); BUN 10 mg/dL (4-19); BUN/Creat Ratio 12.2 RATIO (10-20); Calcium,Total 9.5 mg/dL (7.6-11.0); Carbon Dioxide 24.5 mmol/L (21.0-32.0); Chloride 98 mmol/L (98-108); Estimated Creatinine Clearance 133.81 ml/min (50-250); Globulin 2.9 g/dL (2.2-4.2); Glucose 133 mg/dL (70-99); Potassium 3.7 mmol/L (3.3-5.1)
[2025-06-29 15:49] LABS: Barbiturate Urine NEGATIVE (< 200 ng/mL); Benzodiazepine Urine NEGATIVE (< 200 ng/mL); PCP Urine NEGATIVE (< 25 ng/mL); THC Urine PRESUMPTIVE POSITIVE (< 50 ng/mL)
--- NOTE | 2025-06-29 17:06 | HP.PCM.HOS_ITS ---
HPI - General General Date of Admission: 06/29/25 Date of Service: 06/29/25 Chief Complaint: Requesting services for alcohol substance use disorder HPI Narrative VINAY ARMENDARIZ, is a 30 M who presents to the emergency room at [facility] requesting services for alcohol substance use disorder and alcohol detox. Patient was last here in March for the same reason and checked himself out AMA. He states he has not followed up with anybody since he has been in out of the hospital last March. Patient's last drink was early this morning. Patient complains of nervousness and tremor at the present time. Patient is currently on Subutex chronically from an outside physician. Patient's CHEM panel and CBC was unremarkable, his tox screen was positive for buprenorphine and cannabinoids. Patient's blood alcohol level was 73.9. Patient will be admitted to [place] [address] for alcohol use disorder, orders were entered using the alcohol and addiction order set, patient will be seen by addiction hospital social worker. [facility] Medical History Desire for detoxification Alcohol abuse Intertrigo Generalized headaches Drug abuse Bone fracture Hidradenitis Home Medications Medication Instructions Recorded Last Taken Type buprenorphine 8 mg-naloxone 2 mg 1 tab sublingual BID drug detox 03/14/25 06/29/25 History sublingual tablet acetaminophen 500 mg capsule 500 mg PO Q6H PRN fever o r pain 06/29/25 Unknown History Allergy/AdvReac Type Severity Reaction Status Date / Time No Known Allergies Allergy Verified 06/29/25 13:45 Family History Other No pertinent family history Surgical History History of excision of lesion Social History Smoking Status: Current every day smoker tobacco type: e-cigarettes alcohol intake: former substance use type: former substance user ROS Constitutional Constitutional: Reports malaise; Denies anorexia, change in weight, fever(s), night sweats or weakness Eyes Eyes: Denies blurry vision, change in vision, discharge from eye(s) or eye pain Cardiovascular Cardiovascular: Denies chest pain, claudication, dyspnea on exertion, edema or palpitations Respiratory/Chest Respiratory/Chest: Denies cough, dyspnea, excessive phlegm production, hemoptysis, shortness of breath at rest or shortness of breath with exertion Gastrointestinal Gastrointestinal: Denies abdominal pain, constipation, diarrhea, hematemesis, hematochezia, melena, nausea or vomiting Genitourinary Genitourinary: Denies dysuria, hematuria, urinary frequency, urinary hesitancy, urinary incontinence or urinary urgency Musculoskeletal Musculoskeletal: Denies back pain, joint pain, joint stiffness, joint swelling, myalgias or neck pain Neurologic Neurologic: Denies abnormal gait, abnormal speech, dizziness, focal weakness, headache(s), loss of vision, numbness, other visual disturbances, paresthesias, syncope or tingling Psychiatric Psychiatric: Reports irritability and other Details: Tremor, nervousness ; Denies anxiety, cognitive impairment, depression, mood swings or suicidal ideation Endocrine Endocrinology: Denies change in body appearance, cold intolerance, excessive sweating, heat intolerance, polydipsia or polyuria Hematologic/Lymphatic Hematologic/Lymphatic: Denies none, anemia, easy bleeding, easy bruising or lymphadenopathy Allergic/Immunologic Allergic/Immunologic: Denies rhinitis, urticaria, eczemia or asthma Vital Signs Vital Signs Vital Signs: 06/29/25 13:44 06/29/25 14:08 06/29/25 15:25 Temperature 98.5 F 97.6 F L 98.7 F Temperature Source Oral Temporal Pulse Rate 113 H 120 H 114 H Respiratory Rate 18 20 H 18 Blood Pressure 154/104 H 141/61 H Blood Pressure Mean 120 87 Blood Pressure Source Blood Pressure Position Blood Pressure Location Pulse Ox 97 96 99 Oxygen Delivery Method Room Air Room Air 06/29/25 15:48 06/29/25 16:00 Temperature 98.6 F Temperature Source Oral Pulse Rate 101 H 101 H Respiratory Rate 20 H Blood Pressure 139/105 H Blood Pressure Mean 116 Blood Pressure Source Monitor Blood Pressure Position Semi-Fowlers Blood Pressure Location Right Forearm Pulse Ox 96 Oxygen Delivery Method Room Air Weight Weight: 68.067 kg Body Mass Index (BMI) 19.3 Physical Exam Const alert, oriented x3 and average body habitus Constitutional Narrative: Patient appears moderately anxious General Appearance: cooperative, well kempt and well developed Orientation / Consciousness: awake, oriented to person, oriented to place and oriented to time HEENT normocephalic, head/scalp atraumatic, hearing grossly normal bilaterally and moist oral mucous membranes Eyes PERRL, EOMs intact bilaterally and conjunctivae normal Neck supple, no JVD, thyroid normal and no carotid bruits General: trachea midline Resp normal respiratory effort, no retractions, no use of accessory muscles and clear to auscultation bilaterally Auscultation: Negative for rales, rhonchi or wheezes Cardio regular rate, regular rhythm, S1 normal heart sound, S2 normal heart sound, no murmurs, no rub and no gallops GI normal to inspection, nondistended, normoactive bowel sounds, soft to palpation, non-tender and non-distended Extremity no clubbing, cyanosis or edema Skin no rashes or lesions noted General Skin Exam: no breakdown Neuro oriented x3, CN's II-XII intact bilaterally, moves all extremities, no focal motor deficits and no sensory deficits noted Sensorium / Orientation: awake and alert Speech: speech normal Psych Mood & Affect: anxious Results Lab / Micro Data 06/29/25 14:07 06/29/25 14:07 Labs: Laboratory Results - last 24 hr 06/29/25 14:07: WBC 5.2, RBC 4.80, Hgb 15.0, Hct 41.5, MCV 86.5, MCH 31.3, MCHC 36.1 H, RDW Std Deviation 41.1, RDW Coeff of Viry 13.2, Plt Count 164, MPV 10.4, Immature Gran % (Auto) 0.400, Neut % (Auto) 72.1 H, Lymph % (Auto) 19.6, Dillon % (Auto) 6.7, Eos % (Auto) 0.2, Baso % (Auto) 1.0, Absolute Neuts (auto) 3.8, Absolute Lymphs (auto) 1.02, Nucleated RBC % 0, Sodium 137, Potassium 3.7, Chloride 98, Carbon Dioxide 24.5, Anion Gap 15, BUN 10, Creatinine 0.85, Estim Creat Clear Calc 133.81, Est GFR (MDRD) Non-Af 120, BUN/Creatinine Ratio 12.2, G lucose 133 H, Calcium 9.5, Total Bilirubin 0.70, AST 43 H, ALT 42, Alkaline Phosphatase 87, Total Protein 7.5, Albumin 4.6, Globulin 2.9, Albumin/Globulin Ratio 1.6, Ethyl Alcohol 73.9 H 06/29/25 14:15: Urine Opiates Screen NEGATIVE, U Buprenorphine Qual PRESUMPTIVE POSITIVE, Ur Oxycodone Screen NEGATIVE, Urine Methadone Screen NEGATIVE, Urine Fentanyl Screen NEGATIVE, Ur Barbiturates Screen NEGATIVE, Ur Phencyclidine Scrn NEGATIVE, Ur Amphetamines Screen NEGATIVE, U Benzodiazepines Scrn NEGATIVE, Urine Cocaine Screen NEGATIVE, U Cannabinoids Screen PRESUMPTIVE POSITIVE Assessment & Plan Assessment/Plan (1) Alcohol withdrawal: PLAN: Plan 1. Alcohol withdrawal-patient was admitted to [facility], orders were entered using the alcohol and addiction order set, patient will be seen by addiction hospital social worker #2 chronic alcohol use disorder-complicates care, management, recovery, and prognosis Total clinical time spent by myself addressing the patient's medical issues, reviewing all of his data, and collaborating with patient's care team: 40 minutes Charges/Coding Visit Charges Inpatient E&M: 37347 Init Hosp L1
[2025-06-29] MEDS: Nicotine (PBKC) 21 MG Patch TD (17:21)
[2025-06-29] MEDS: hydrOXYzine PAM 25 MG Capsule 50 MG PO ×2 (18:37→22:41)
[2025-06-29] MEDS: Nicotine 2mg Gum (PBKC) 2 MG GUM PO (19:49)
[2025-06-30 02:11] VITALS: BP 127/77; PULSE 82; RESP 17; TEMP 36.9; O2SAT 100
[2025-06-30 07:57] VITALS: BP 120/76; PULSE 87; RESP 16; TEMP 36.3; O2SAT 99
[2025-06-30] MEDS: Thiamine Hydrochloride 100 MG Tablet PO (09:32)
[2025-06-30] MEDS: Nicotine (PBKC) 21 MG Patch TD (09:32)
[2025-06-30] MEDS: hydrOXYzine PAM 25 MG Capsule 50 MG PO ×2 (09:35→13:42)
[2025-06-30 11:27] VITALS: BP 126/75; PULSE 83; RESP 16; TEMP 36.9; O2SAT 99
[2025-06-30] MEDS: Nicotine 2mg Gum (PBKC) 2 MG GUM PO (13:40)
--- NOTE | 2025-06-30 16:56 | PCM.PN.HOSP ---
Reason for Visit Chief Complaint: Requesting services for alcohol substance use disorder Subjective Subjective Patient was seen and examined today, he states he feels better than yesterday, he is less nervous and anxious. Objective Data Objective Data Vital Signs: Vital Signs Temp Pulse Resp BP Pulse Ox O2 Del Method 98.5 F 83 16 126/75 H 99 Room Air 06/30/25 11:27 06/30/25 11:27 06/30/25 11:27 06/30/25 11:27 06/30/25 11:27 06/30/25 13:55 Oxygen Delivery Method Room Air Weight: 68.067 kg Body Mass Index (BMI) 19.3 Intake & Output: Intake and Output for Last 24 Hours 06/28/25 06/29/25 06/30/25 23:59 23:59 23:59 Intake Total 400 / 400 1700 / 1700 Balance 400 / 400 1700 / 1700 Medical Nutrition Assessment Dietitian: Malnutrition Criteria Met Start: 06/30/25 16:56 Freq: Status: Active Protocol: Document 06/30/25 16:56 LILLIAN (Rec: 06/30/25 16:56 [facility] [id number]) Nutrition Malnutrition Evidence of Yes Malnutrition Exists Malnutrition (severe Social/Behavioral/Environmental ): Evidenced By Suboptimal Energy Intake (Severe),Weight Loss (Severe) Clinical Problem Starvation Related Malnutrition Etiology related to suspected ETOH intake displacing oral nutrition intakes Signs/Symptoms as evidenced by significant weight loss of 15.7% in ~3. 5 months based upon 03/13/25 weight of 178lb and pt report of oral intakes meeting less than or equal to 50 % of nutrient needs for at least 1 month. Status Active Problem Recommendation Dietitian Continue with Regular - General diet for liberalization Recommendations/ to promote oral intakes. Changes No interest in ONS use at this time. Snacks available as needed. Pt reports improved appetite and intakes since admission. Will continue to follow, monitor oral intakes and modify nutrition interventions at this time. Lab / Micro Data 06/29/25 14:07 06/29/25 14:07 Physical Exam Const alert, oriented x3, no apparent distress and healthy appearing General Appearance: cooperative, well kempt and well developed Orientation / Consciousness: awake, oriented to person, oriented to place and oriented to time HEENT normocephalic and moist oral mucous membranes Eyes PERRL, EOMs intact bilaterally and conjunctivae normal Neck supple, no JVD, thyroid normal and no carotid bruits General: trachea midline Resp normal respiratory effort and clear to auscultation bilaterally Auscultation: Negative for rales, rhonchi or wheezes Cardio regular rate, regular rhythm, no murmurs, no rub and no gallops GI normal to inspection, nondistended, normoactive bowel sounds, soft to palpation, non-tender and non-distended Extremity no clubbing, cyanosis or edema Skin no rashes or lesions noted General Skin Exam: no breakdown Neuro oriented x3, CN's II-XII intact bilaterally, no focal motor deficits and no sensory deficits noted Sensorium / Orientation: awake and alert Speech: speech normal Psych affect normal Assessment & Plan Assessment/Plan (1) Alcoholism: (2) Alcohol withdrawal: PLAN: Plan 1. Alcohol withdrawal-patient will continue on his present medications including phenobarbital, he will talk with addiction social and political studies professor tomorrow about detox follow-up after he is discharged. #2 chronic alcohol use disorder-complicates care, management, recovery, and prognosis Total clinical time spent by myself addressing the patient's medical issues, reviewing all of his data, and collaborating with patient's care team: 25 minutes Charges/Coding Visit Charges Inpatient E&M: 18294 Subs Hosp L1
[2025-06-30 17:27] VITALS: BP 126/86; PULSE 97; RESP 16; TEMP 36.8; O2SAT 99
[2025-06-30 20:00] VITALS: BP 137/77; PULSE 98; RESP 16; TEMP 36.7; O2SAT 100
[2025-07-01 02:13] VITALS: BP 121/66; PULSE 72; RESP 16; TEMP 36.9; O2SAT 100
[2025-07-01] MEDS: hydrOXYzine PAM 25 MG Capsule 50 MG PO ×2 (06:42→11:01)
[2025-07-01 08:31] VITALS: BP 143/78; PULSE 100; RESP 16; TEMP 36.8; O2SAT 98
[2025-07-01] MEDS: Nicotine (PBKC) 21 MG Patch TD (08:34)
[2025-07-01] MEDS: Thiamine Hydrochloride 100 MG Tablet PO (08:34)
--- NOTE | 2025-07-01 10:04 | ADDICTION ---
Met with patient to complete RAMP assessments. Patient reports that he did not drink until about year ago. Pt was here for detox in March. He did not do any follow up as well as left AMA. Unfortunately he began drinking heavily and daily shortly after he left. He has an addiction hx and has been on Suboxone for around 8.5 years. We discussed addiction behaviors and how those are important to learn through treatment in order to be successful in recovery. Pt is agreeable to following up with [facility] for outpatient tx and MAT.
--- NOTE | 2025-07-01 12:00 | CASEMGMT ---
Social Work- SW met with pt to complete SDOH assessment. Pt previously known to SW from prior visit. Pt reports that pt situation has continued to decline with ETOH use. Pt reports that he is behind on mortgage and car payments, pt has utility shut-off notice, and has no money in checking or savings. Pt has moderate anxiety regarding financial situation, as he is not working at this time. Pt plans to follow up with [facility] for substance use. SW provided resources for [employer] (utilities, housing and car support). [employer] (gas vouchers), transportation list, food resources list, [employer] (financial assistance), counseling list, [facility], PCP list, and [facility] card. Pt has applied for [facility]. SW called [facility] to update that pt has no income, no savings. SW and pt reviewed and discussed printables. Pt reports that he feels that he can make phone calls now that he is sober. SW encouraged pt to follow up with [facility] staff in connecting with resources if he begins to feels overwhelmed. Pt reports no other needs and thanked KAT for information. TRAVIS Dee
--- NOTE | 2025-07-01 13:10 | DCINST_ITS ---
Discharge Instructions DC O2, CPAP, BIPAP needs Home O2 Discharge instructions: No Dressing / Incision Discharge Activity: Return to Normal Activity Weight Bearing Status: Full weight bearing Follow Up Care Test Results: Test results from this visit will be discussed in further detail at your follow- up appointment, if applicable. Discharge Plan Admission Admit Date/Time: 06/29/25 14:53 Primary Reason for Your Visit: Alcohol detox, alcohol use disorder Attending Provider: Josh Escobedo Primary Care Provider: Care Physician,No Primary Instructions Additional Instructions / Restrictions: Follow-up with [facility] as an outpatient Discharge Orders/Prescriptions Prescriptions: Continued acetaminophen 500 mg capsule 500 mg PO Q6H PRN (Reason: fever or pain) buprenorphine-naloxone 8-2 mg tablet, sublingual 1 tab sublingual BID Referrals / Follow Up: Care Physician,No Primary [Primary Care Provider, Medical] Disposition Disposition (needs filled in before D/C Order can be placed): Home, Self Care
--- NOTE | 2025-07-01 13:13 | DS.PCM_ITS ---
Providers Date of Admission: 06/29/25 Date of Discharge: 07/01/25 Primary Care Physician: No Primary Care Phys Reason For Visit: ALCOHOL WITHDRAWAL Diagnosis Discharge Diagnosis (1) Alcoholism: Status: Acute Code(s): F10.20 - Alcohol dependence, uncomplicated (2) Alcohol withdrawal: Status: Acute Code(s): F10.939 - Alcohol use, unspecified with withdrawal, unspecified Plan 1. Alcohol withdrawal-patient will continue on his present medications including phenobarbital, he will talk with addiction social science research assistant tomorrow about detox follow-up after he is discharged. #2 chronic alcohol use disorder-complicates care, management, recovery, and prognosis Total clinical time spent by myself addressing the patient's medical issues, reviewing all of his data, and collaborating with patient's care team: 25 minutes Medications at Discharge Home Medications buprenorphine 8 mg-naloxone 2 mg sublingual tablet 1 tab sublingual BID drug detox 03/14/25 acetaminophen 500 mg capsule 500 mg PO Q6H PRN fever or pain 06/29/25 Hospital Course Operations None Procedures None Summary of Care Provided Minutes Spent on Discharge: 30 Hospital Course: This 30-year-old white male was seen in the emergency room at [facility] requesting services for alcohol detox. Patient had been in the hospital here previously for alcohol detox and had signed out AMA during his last admission. Patient was admitted to [facility], orders were entered using the addiction and alcohol withdrawal order sets, patient was seen by addiction social science research assistant and agreed to follow-up with [facility] as an outpatient. Had minimal withdrawal symptoms and there was no evidence of DTs. On 07/01/2025, patient was seen and examined: On examination he appeared in good health and spirits. Vital signs as documented. Skin warm and dry and without overt rashes. Neck without JVD, neck was supple, trachea midline, thyroid was normal. Lungs clear bilaterally, normal air movement was noted. Heart exam notable for regular rhythm, normal sounds and absence of murmurs, rubs or gallops. Abdomen unremarkable and without evidence of organomegaly, masses, or abdominal aortic enlargement. Bowel sounds are present, abdomen is not distended. Extremities nonedematous, no cyanosis was noted, no clubbing was noted. Neuro: Cranial nerves II through XII are grossly intact, no focal motor deficits were noted, sensation to light touch and pinprick intact, motor exam 5/5 throughout. Psych: Patient is alert and oriented x3, he does not appear anxious or depressed, he does not appear agitated. Patient appears stable for discharge on 07/01/2025. Medical Records Data Medical Nutrition Assessment Dietitian: Malnutrition Criteria Met Start: 06/30/25 16:56 Freq: Status: Active Protocol: Document 06/30/25 16:56 HORACIO (Rec: 06/30/25 16:56 LILLIAN [id number]) Nutrition Malnutrition Evidence of Yes Malnutrition Exists Malnutrition (severe Social/Behavioral/Environmental ): Evidenced By Suboptimal Energy Intake (Severe),Weight Loss (Severe) Clinical Problem Starvation Related Malnutrition Etiology related to suspected ETOH intake displacing oral nutrition intakes Signs/Symptoms as evidenced by significant weight loss of 15.7% in ~3. 5 months based upon 03/13/25 weight of 178lb and pt report of oral intakes meeting less than or equal to 50 % of nutrient needs for at least 1 month. Status Active Problem Recommendation Dietitian Continue with Regular - General diet for liberalization Recommendations/ to promote oral intakes. Changes No interest in ONS use at this time. Snacks available as needed. Pt reports improved appetite and intakes since admission. Will continue to follow, monitor oral intakes and modify nutrition interventions at this time. Weight / BMI Weight Weight: 68.067 kg Body Mass Index (BMI) 19.3 ABG / Lab / Microbiology Data 06/29/25 14:07 06/29/25 14:07 D/C Instructions Weight Bearing Status: Full weight bearing DC O2, CPAP, BIPAP Needs Home O2 Discharge instructions: No Meaningful Use Info Meaningful Use Meaningful Use Diagnoses (Choose all that apply): None applicable Discharge Plan Admission Admit Date/Time: 06/29/25 14:53 Primary Reason for Your Visit: Alcohol detox, alcohol use disorder Attending Provider: Josh sEcobedo Primary Care Provider: Care Physician,No Primary Instructions Patient Instructions: Alcohol Addiction, Alcoholism Resources, Alcohol Use Disorder: Getting Help, Addiction Recovery Counseling Additional Instructions / Restrictions: Follow-up with [facility] as an outpatient Discharge Orders/Prescriptions Prescriptions: Continued acetaminophen 500 mg capsule 500 mg PO Q6H PRN (Reason: fever or pain) buprenorphine-naloxone 8-2 mg tablet, sublingual 1 tab sublingual BID Referrals / Follow Up: Care Physician,No Primary [Primary Care Provider, Medical] Disposition Disposition (needs filled in before D/C Order can be placed): Home, Self Care Charges/Coding Visit Charges Inpatient E&M: 75560 Subs Hosp L2
[2025-07-01 14:10] VITALS: BP 136/85; PULSE 84; RESP 16; O2SAT 99
--- NOTE | 2025-07-01 15:49 | CHAPLAIN ---
Type of Pastoral Visit ___ Initial Visit ___ Follow-up Visit ___ On-call Visit ___ General Patient Visit ___ Spiritual Assessment ___ Family Conference ___ Bereavement ___ Rapid Response ___ Code Blue ___ Other (describe below) Pastoral Care Referral From ___ Patient ___ Family ___ Nurse ___ Physician ___ Manager Club ___ Driver License Reviewing Officer ___ Other (describe below) Sacrament/Intervention ___ Active listening ___ Anointing ___ Buddhism ___ Bereavement ___ Communion ___ Ginette exploration ___ ___ Life review ___ Prayer ___ Reconciliation ___ Sacrament of Sick ___ Supportive presence ___ Wedding ___ Other (describe below) Pastoral Comments patient left the hospital before being seen by this cassandra consultant
== END 2025-07-01 14:14 | disposition home or self-care (01) | DRG 896 ==
LOC: ED 15:06 → MS3 15:16
PROVIDERS: Admitting Provider Internal Medicine; Emergency Provider Emergency Medicine; Visit Provider Internal Medicine
DX: F10.239 Alcohol dependence with withdrawal, unspecified (principal); E43 Unspecified severe protein-calorie malnutrition; Z68.1 Body mass index [BMI] 19.9 or less, adult; F17.290 Nicotine dependence, other tobacco product, uncomplicated; Y90.3 Blood alcohol level of 60-79 mg/100 ml
CPT/HCPCS: 80053; 80307; 82077; 85025; 97802; 99284